=== PATIENT | female | born 1960 | race Caucasian/White ===

== ENCOUNTER 2018-08-14 09:29 | Outpatient (RCR) | payer MEDICAID, SELFPAY ==
--- NOTE | 2018-08-14 09:31 | COCO.VHC ---
New/Renewal Application Status: New Application Submitted?: Yes (07/30/18) Notes:: application submitted
== END 2018-09-11 23:59 | disposition home or self-care (01) ==
LOC: COCO 09:29
PROVIDERS: PCP Family Medicine; Visit Provider Family Medicine
DX: R69 Illness, unspecified (principal)

== ENCOUNTER 2018-10-29 14:06 | Outpatient (CLI) | payer OTHER, SELFPAY ==
[2018-10-29 15:22] LABS: ALT 19 U/L (12-78); AST 16 U/L (15-37); Albumin 3.4 g/dL (3.4-5.0); Alkaline Phosphatase 68 U/L (46-116); Anion Gap 5.6 mmol/L (3-11); BUN 17 mg/dL (7-18); Bilirubin, Total 0.3 mg/dL (0.2-1.0); CO2 31.4 mmol/L (21.0-32.0); CREATININE 1.09 mg/dL (0.55-1.02); Calcium 8.6 mg/dL (8.5-10.1); Chloride 107 mmol/L (98-107); Cholesterol 246 mg/dL (50-200); Estimated GFR 51.74 (mL/min/1.73m2); Glucose 101 mg/dL (70-100); HDL Cholesterol 65 mg/dL (40-60); LDL CHOLESTEROL 163 mg/dL (<100); Potassium 4.4 mmol/L (3.5-5.1); Sodium 144 mmol/L (136-145); Total Protein 6.8 g/dL (6.4-8.2); Triglyceride 158 mg/dL (30-150)
== END 2018-10-29 14:26 ==
PROVIDERS: PCP Family Medicine; Visit Provider Nurse Practitioner Family
DX: F31.81 Bipolar II disorder (principal); Z79.899 Other long term (current) drug therapy
CPT/HCPCS: 36415; 80053; 80061; 83721

== ENCOUNTER 2019-04-23 09:54 | Outpatient (REF) | payer OTHER, SELFPAY ==
--- NOTE | 2019-04-23 08:30 | PAPFT_PTH ---
PATIENT: Elisa Ram [facility] U#:[id number] AGE/SX: 58/F ROOM: RE04/23/[address]: Lisa Munoz V : 1960 BED: DIS: 04/23/2019 SPEC #: [id number] RECD: 04/26/19 13:09 STATUS: HOMER REKy #: [id number] NATALIE: 04/23/19 08:[address]: Lisa Munoz V DEPT: [facility] Cytology RECD BY: Vinita Kim Tissues: 1 - CX/ENDOCX FOR PAP SMEARS Procedures: PAP THIN PREP/UVM Screening HPV DNA PROBE Comments: [id number]
== END 2019-04-23 10:14 ==
LOC: NCHCN 09:54
PROVIDERS: PCP Family Medicine; Visit Provider Family Medicine
DX: Z12.4 Encounter for screening for malignant neoplasm of cervix (principal); Z11.51 Encounter for screening for human papillomavirus (HPV); Z01.419 Encounter for gynecological examination (general) (routine) without abnormal findings
CPT/HCPCS: 88142; 87624

== ENCOUNTER 2019-05-03 14:04 | Outpatient (CLI) | payer OTHER, SELFPAY ==
[2019-05-03 15:02] LABS: HCT 44.9 % (36.0-46.0); Mean Corp. HGB Concentration 33.4 g/dL (32.0-36.0); Mean Corpuscular Hemoglobin 31.9 pg (27.0-33.0); Mean Corpuscular Volume 95.5 fL (80-95); Mean Platelet Volume 9.7 fL (8.0-11.0); Platelet Count 234 x1000/uL (130-400); RBC Distribution Width 12.5 % (11.7-14.6); White Blood Cell Count 6.16 k/cumm (4.4-10.8)
[2019-05-03 15:43] LABS: Lithium 0.89 mmol/L (0.60-1.20)
[2019-05-03 15:46] LABS: ALT 21 U/L (12-78); AST 13 U/L (15-37); Albumin 3.6 g/dL (3.4-5.0); Alkaline Phosphatase 57 U/L (46-116); BUN 16 mg/dL (7-18); Bilirubin, Total 0.3 mg/dL (0.2-1.0); CREATININE 1.11 mg/dL (0.55-1.02); Calcium 8.6 mg/dL (8.5-10.1); Chloride 107 mmol/L (98-107); Estimated GFR 50.66 (mL/min/1.73m2); Glucose 84 mg/dL (70-100); Potassium 4.6 mmol/L (3.5-5.1); Sodium 141 mmol/L (136-145); TSH (W/Ref FT4) 2.33 uIU/mL (0.36-3.74); Total Protein 6.4 g/dL (6.4-8.2)
[2019-05-03 16:13] LABS: Calculated LDL 170 mg/dL; Cholesterol 273 mg/dL (50-200); HDL Cholesterol 74 mg/dL (40-60); Magnesium 2.2 mg/dL (1.8-2.4); Triglyceride 145 mg/dL (30-150); Vitamin B12 348 pg/mL (193-986)
[2019-05-07 09:34] LABS: Thiamine (Vitamin B1), WB 116 nmol/L (70-180)
== END 2019-05-03 14:24 ==
PROVIDERS: PCP Family Medicine; Visit Provider Nurse Practitioner Family
DX: Z00.00 Encounter for general adult medical examination without abnormal findings (principal); F31.81 Bipolar II disorder; E78.5 Hyperlipidemia, unspecified; Z98.84 Bariatric surgery status; Z79.899 Other long term (current) drug therapy; Z51.81 Encounter for therapeutic drug level monitoring
CPT/HCPCS: 36415; 80053; 80061; 83721; 85027; 80178; 82607; 83735; 84425; 84443; 84590

== ENCOUNTER 2019-05-18 10:53 | Outpatient (CLI) | payer OTHER, SELFPAY ==
--- NOTE | 2019-05-18 11:18 | DI.MAMMO_ITS ---
SYMPTOMS/DIAGNOSIS: SCREENING, Z12.31, PREVENTATIVE CARE, Z00.00 MAMMOGRAM: Mammograms were interpreted according to the usual protocol including computer analysis with CAD system, tomosynthesis and C view imaging. Comparison is made with exams from 2010 through 2016. The breasts are composed of scattered fibroglandular densities, breast density Category B. No suspicious masses or suspicious microcalcifications are seen. There has been no significant change. IMPRESSION: Category I, negative mammogram. Yearly screening mammography is recommended. [facility] ASSESSMENT OF FINDINGS: Negative. Category 1. Patient will receive a letter notifying them of these results. BI-RADS category B. There are scattered areas of fibroglandular density.
== END 2019-05-18 11:13 ==
PROVIDERS: PCP Family Medicine; Visit Provider Family Medicine
DX: Z00.00 Encounter for general adult medical examination without abnormal findings (principal); Z12.31 Encounter for screening mammogram for malignant neoplasm of breast
CPT/HCPCS: 77063; 77067

== ENCOUNTER 2019-07-26 07:13 | Day surgery (SDC) | payer OTHER, SELFPAY ==
--- NOTE | 2019-07-26 06:44 | W.COLOREPORT ---
Date of service: 07/26/19 Time of Service: 08:05 Colonoscopy Report Date of procedure: 07/26/19 Pre-op diagnosis general: Hx of polyps Post-op diagnosis procedure note: other (Colorectal polyps) Procedure: Colonoscopy with polypectomy by cold forceps and hot snare Surgeon: Ciara Limon Anesthesia proc note operative: other (General/ ASA 2/Myla Pedersen, STEFANIE) Estimated blood loss (mL): 5 Pathology: other (Sigmoid polyp, ascending polyp, transverse polyp x3) Complications: None Disposition: same day Indications: Mrs. Ram is a pleasant 58 year old female seen in the office for a follow up Colonoscopy. Her last Colonoscopy was in 2016 and she had 6 Polyps. Risks, benefits and complications have been reviewed. Complications include but are not limited to bleeding, pain, perforation, missed small lesion/polyp, sore throat, aspiration and adverse reaction to the medications. Questions were entertained and answered to their satisfaction and they wished to proceed. No guarantees were given or implied. Prep: Miralax/Dulcolax Procedure Start Time: 08:05 Procedure End Time: 08:55 Retraction Time: 39 minutes Findings: multiple sessile polyps Procedure Description: After informed consent was obtained the patient was taken to the procedure room and placed in a left decubitous position. Monitors were applied and a time out was done. The patients name, date of , procedure, allergies to medications and metal in their body was reviewed. The patient was then sedated. Once sedated and comfortable a rectal exam was done. External exam was normal. Internal exam revealed a normal sphincter tone and no palpable masses. The scope was then introduced and retro-flexed. No internal hemorrhoids, masses or polyps were identified on retroflexion. The scope was then advanced to the cecum without difficulty. The TI and appendiceal orifice were identified. The prep was adequate. The scope was then slowly retracted over 39 minutes back into the rectum. Polyps were removed with cold forceps in the sigmoid colon x 1 and ascending colon x1. Polyps were removed with hot snare in the transverse colon x2 and in the transverse colon at 60 cm. At 60 cm the polyp was >2 cm in size and it was sessile. The scope was removed and the patient was woken up and taken back to Same day surgery in stable condition. The patient tolerated the procedure well and there were no immediate complications. Follow up: The patient should follow up in 3 years unless they develop changes in bowel habits or other new gastrointestinal complaints.
--- NOTE | 2019-07-26 06:45 | W.PM.DSUDISC ---
Discharge Plan Disposition Patient Disposition: HOME Condition: Good Discharge Details Reason For Visit: Colon Cancer Screening Attending Provider: Ciara Limon Primary Care Provider: Lisa Munoz V Home Meds and New Rx's Prescriptions: Continued ziprasidone HCl 20 mg capsule 20 mg PO BID RF: 0 lithium carbonate 300 mg capsule 300 mg PO BID RF: 0 ziprasidone HCl [Geodon] 80 mg capsule 80 mg PO BID RF: 0 Discontinued polyethylene glycol 3350 17 gram/dose powder 238 g PO ONCE Qty: 238 RF: 0 bisacodyl [Dulcolax (bisacodyl)] 5 mg tablet,delayed release (DR/EC) 5 mg PO ONCE Qty: 4 RF: 0 Discharge Instructions Instructions: Colonoscopy (DC), Colorectal Polyps (DC) Additional Instructions: Findings: 5 sessile polyps Follow up: 3 years Please call if you develop: fevers >101.5 Nausea or Vomiting Abdominal pain that is not transient DAY SURGERY UNIT POST ENDOSCOPY INSTRUCTIONS 1. Because there will be medication in your system for the next 24 hours, you may feel a little sleepy. Your coordination will be affected. Therefore: a. Do not drive or operate dangerous equipment for 24 hours. b. Do not drink alcohol beverages for 24 hours (not even beer). c. Plan to go home and rest for the day. 2. Generally there are no restrictions on your activity after a day or so has gone by, but you may feel a bit fatigued for a few days. 3 After you arrive home you may have a light meal and return to a normal diet as you can tolerate it without feeling sick to your stomach. 4. After surgery, you may feel pain or discomfort. This should be only transient, but if it persists please contact your doctor. 5. If there are any questions regarding the findings of your procedure, please feel free to contact your doctor. 6. If you are unable to contact your doctor with a problem, contact the hospital at [phone]. 7. Continue all your regular medications unless directed otherwise. I understand the above instructions and have no questions. Signature of Patient or Responsible Adult Escort Date/Time Name of Responsible Adult Escort Signature of Nurse Date/Time Activity:: Activity as Tolerated Diet:: As Tolerated Discharge Orders Discharge Orders: Discharge Order (Routine); Ordered 07/26/19 Ordered By: Ciara Limon DS: Diagnosis Discharge Diagnosis (1) S/P colonoscopy: Status: Acute (2) Colorectal polyps: Status: Acute
[2019-07-26 07:20] VITALS: BP 121/73; PULSE 57; RESP 18; TEMP 36.4; O2SAT 99
[2019-07-26] MEDS: Lactated Ringers 1,000 ML 80 ML IV (07:46)
--- NOTE | 2019-07-26 08:09 | BOWEL_PTH ---
PATIENT: Elisa Ram LOC: [facility] U#:[id number] AGE/SX: 58/F ROOM: RE07/26/[address]: Ciara Limon MD : 1960 BED: DIS: 07/26/2019 SPEC #: [id number] RECD: 07/26/19 12:42 STATUS: HOMER REQ #: [id number] NATALIE: 07/26/19 08:[address]: Ciara Limon DEPT: Surgical Specimen RECD BY: Vinita Kim ENTERED: 07/26/19 12:44 SP TYPE: Bowel OTHR DR: Lisa Munoz V Tissues: 1 - BIOPSY BOWEL 2 - BIOPSY BOWEL 3 - BIOPSY BOWEL 4 - BIOPSY BOWEL Procedures: GROSS AND MICRO LEVEL 4 Comments: [id number]
[2019-07-26 09:35] VITALS: BP 133/76; PULSE 50; RESP 16; TEMP 36.5; O2SAT 95
== END 2019-07-26 10:05 | disposition home or self-care (01) ==
LOC: SUR 07:14
PROVIDERS: PCP Family Medicine; Visit Provider Surgery
PROC: 0DJD8ZZ Inspection of Lower Intestinal Tract, Via Natural or Artificial Opening Endoscopic (ICD-10-PCS; CPT 45378; principal; 2019-07-26 08:30)
DX: Z12.11 Encounter for screening for malignant neoplasm of colon (principal); D12.2 Benign neoplasm of ascending colon; D12.3 Benign neoplasm of transverse colon; D12.5 Benign neoplasm of sigmoid colon; Z86.010 Personal history of colon polyps
CPT/HCPCS: 45385; 45380; 88305

== ENCOUNTER 2019-09-02 08:50 | Outpatient (CLI) | payer OTHER, SELFPAY ==
[2019-09-02 10:56] LABS: ALT 27 U/L (14-59); AST 17 U/L (15-37); Albumin 3.6 g/dL (3.4-5.0); Alkaline Phosphatase 55 U/L (46-116); Anion Gap 7.3 mmol/L (3-11); BUN 16 mg/dL (7-18); Bilirubin, Total 0.4 mg/dL (0.2-1.0); CO2 26.7 mmol/L (21.0-32.0); CREATININE 1.28 mg/dL (0.55-1.02); Chloride 107 mmol/L (98-107); Estimated GFR 42.98 (mL/min/1.73m2); Glucose 92 mg/dL (74-106); Potassium 4.2 mmol/L (3.5-5.1); Sodium 141 mmol/L (136-145); TSH 3.16 uIU/mL (0.36-3.74); Total Protein 6.5 g/dL (6.4-8.2)
[2019-09-02 12:22] LABS: Lithium 1.04 mmol/L (0.60-1.20)
[2019-09-06 15:34] LABS: Free Retinol (Vitamin A) 61.5 mcg/dL (32.5-78.0)
== END 2019-09-02 09:10 ==
PROVIDERS: PCP Family Medicine; Visit Provider Nurse Practitioner Family
DX: Z00.00 Encounter for general adult medical examination without abnormal findings (principal); F31.81 Bipolar II disorder; E78.5 Hyperlipidemia, unspecified; Z98.84 Bariatric surgery status; Z79.899 Other long term (current) drug therapy; Z51.81 Encounter for therapeutic drug level monitoring
CPT/HCPCS: 36415; 80053; 80178; 84443; 84590

== ENCOUNTER 2019-11-08 08:56 | Outpatient (CLI) | payer OTHER, SELFPAY ==
[2019-11-08 09:56] LABS: Lithium 1.08 mmol/L (0.60-1.20)
[2019-11-08 10:31] LABS: CREATININE 1.33 mg/dL (0.55-1.02); Estimated GFR 40.98 (mL/min/1.73m2); TSH 2.38 uIU/mL (0.36-3.74)
== END 2019-11-08 09:16 ==
PROVIDERS: PCP Family Medicine; Visit Provider Nurse Practitioner Family
DX: F31.81 Bipolar II disorder (principal); Z51.81 Encounter for therapeutic drug level monitoring; Z79.899 Other long term (current) drug therapy
CPT/HCPCS: 36415; 80178; 82565; 84443

== ENCOUNTER 2020-07-03 02:11 | Outpatient (CLI) | payer OTHER, SELFPAY ==
[2020-07-03 10:20] LABS: ALT 18 U/L (14-59); AST 12 U/L (15-37); Albumin 3.7 g/dL (3.4-5.0); Alkaline Phosphatase 58 U/L (46-116); Anion Gap 4.1 mmol/L (3-11); BUN 21 mg/dL (7-18); Bilirubin, Total 0.5 mg/dL (0.2-1.0); CO2 26.9 mmol/L (21.0-32.0); CREATININE 1.18 mg/dL (0.55-1.02); Calculated LDL 187 mg/dL (<100); Chloride 109 mmol/L (98-107); Cholesterol 281 mg/dL (<200); Estimated GFR 47.05 (mL/min/1.73m2); Glucose 103 mg/dL (74-106); HDL Cholesterol 62 mg/dL (40-60); Potassium 4.4 mmol/L (3.5-5.1); Sodium 140 mmol/L (136-145); TSH 4.18 uIU/mL (0.36-3.74); Total Protein 6.7 g/dL (6.4-8.2); Triglyceride 160 mg/dL (<150)
[2020-07-03 10:26] LABS: Lithium 0.99 mmol/L (0.60-1.20)
== END 2020-07-03 02:31 ==
PROVIDERS: PCP Family Medicine; Visit Provider Nurse Practitioner Family
DX: F31.81 Bipolar II disorder (principal); Z79.899 Other long term (current) drug therapy; Z51.81 Encounter for therapeutic drug level monitoring
CPT/HCPCS: 36415; 80053; 80061; 80178; 84443

== ENCOUNTER 2020-09-19 15:42 | Outpatient (REF) | payer OTHER, SELFPAY ==
[2020-09-21 19:33] LABS: COVID-19 RT-PCR UVMMC Result Positive (Negative)
== END 2020-09-19 16:02 ==
LOC: NCHCN 15:42
PROVIDERS: PCP Family Medicine; Visit Provider Family Medicine
DX: J06.9 Acute upper respiratory infection, unspecified (principal)
CPT/HCPCS: U0003

== ENCOUNTER 2020-09-22 13:15 | Outpatient (CLI) | payer OTHER, SELFPAY ==
[2020-09-22] VITALS (10 sets, daily range): BP systolic 102–123; BP diastolic 71–83; PULSE 58–65; RESP 17–20; TEMP 36.7–36.8; O2SAT 93–97
[2020-09-22] MEDS: Normal Saline 500 ML 30 ML IV (14:15)
[2020-09-22] MEDS: Normal Saline Flush 10 ML SYR IVP ×2 (14:15→15:51)
== END 2020-09-22 13:35 ==
PROVIDERS: PCP Family Medicine; Visit Provider Family Medicine
DX: U07.1 COVID-19 (principal)
CPT/HCPCS: 96365

== ENCOUNTER 2020-09-23 11:56 | Inpatient (IN) | payer OTHER, SELFPAY ==
[2020-09-23] VITALS (129 sets, daily range): BP systolic 90–174; BP diastolic 49–137; PULSE 51–128; RESP 12–30; TEMP 36.7–37.2; O2SAT 83–99
--- NOTE | 2020-09-23 12:00 | RT.EKG_ITS ---
APPROVED REPORT Exam: Resting ECG Patient Location: E HR:65 bpm ECG Measurements Heart Rate 65 AXIS MT [id number] P [id number] QRSd 119 QRS 12 QT 440 T -41 QTc 457 Conclusion Atrial fibrillation...? atrial activity Nonspecific intraventricular conduction delay...QRSd >115mS, not LBBB/RBBB Nonspecific T abnormalities, diffuse leads...T <-0.10mV, ant/lat/inf I disagree with above software interpretation - sinus rhythm, t wave inv III, aVF v1-6
[2020-09-23] MEDS: Normal Saline Flush 10 ML SYR IVP ×2 (12:30→18:51)
[2020-09-23 12:41] LABS: Abs Immature Grans 0.01 10^3/uL (0.0-0.06); Absolute Basophil Count 0.01 10^3/uL (0.0-0.2); Absolute Eosinophil Count 0.03 10^3/uL (0.0-0.7); Absolute Lymphocyte Count 0.95 10^3/uL (1.2-3.4); Absolute Monocyte Count 0.42 10^3/uL (0.1-0.8); Absolute Neutrophil Count 2.75 10^3/uL (1.2-6.7); Basophils % 0.2; Eosinophils % 0.7; HGB 14.7 g/dL (11.2-15.7); Immature Grans % 0.2; Lymphocytes % 22.8; MCH 31.1 pg (27.0-33.0); MCHC 33.4 % (32.0-36.0); MCV 93.2 fL (80-95); MPV 9.8 fL (8.0-11.0); Monocytes % 10.1; Nucleated RBC 0 %; Platelet Count 150 10^3/uL (130-400); RBC 4.72 10^6/uL (3.93-5.22); RDW 12.7 % (11.7-14.6); RDW-SD 43.8 fL; WBC 4.17 10^3/uL (4.4-10.8)
--- NOTE | 2020-09-23 12:45 | ED.GENADUL_ITS ---
Discharge Plan Discharge Details Chief Complaint: Chest Pain Admit Date/Time: 09/23/20 15:31 Admit Provider: Cristian Silva Attending Provider: Cristian Silva Primary Care Provider: Lisa Munoz V ED Provider: Armando Rosas Discharge Data Discharge Date/Time-TO BE ENTERED AT DEPARTURE: 09/23/20 16:52 Medical Decision Making 59-year-old female with history of hypertension, hyperlipidemia, Covid positive by PCR on 09/19/2020, here with chest pressure that started this morning and is worse with exertion with associated shortness of breath. Chest pain is somewhat positional. Concern for pulmonary embolism versus ACS. Screening ECG was reviewed and interpreted by me: Sinus rhythm with T wave inversions noted lead III, aVF, V1 to V6. I attempted to obtain old ECG and not available for comparison. Pain did improve with aspirin and nitroglycerin was administered by EMS. Plan to give additional sublingual nitro and start nitroglycerin infusion. We will proceed to CT chest to assess for pulmonary embolism. 1314??labs reviewed and creatinine is elevated at 1.8 with a GFR of 29. I am reluctant to proceed with CT of the chest given renal function and potential for contrast-induced nephropathy. Will obtain chest x-ray. Initial troponin negative. 1527 --chest x-ray was reviewed and interpreted by radiology: Patchy bilateral perihilar opacities suggestive of an atypical pneumonia. Second troponin at 2 hours from initial negative and unchanged. Repeat ECG was interpreted by me, please see report, no significant change from prior. Patient reassessed and has remained stable. Her chest pain has improved on nitroglycerin drip. We are unable to titrate drip up further given blood pressure. She is received about 1 L of normal saline. I called and spoke with Dr. Silva and discussed ED presentation and course. He will admit the patient to the ICU. HPI General Mode of arrival: EMS . Date/Time Provider Initiated Documentation: 09/23/20 12:28 . Limitations to Documentation: no limitations . Information obtained by: patient and EMS . HPI Narrative: 59-year-old female with history of hyperlipidemia, hypertension, family history positive for cardiac disease, presents with chief complaint of chest pain. Patient notes she recently tested positive for Covid by PCR on 09/19/2020. She is been having viral symptoms with myalgias for the past 5 days. Today she developed retrosternal chest discomfort described as a heaviness. Discomfort is worse with exertion including stairs. Patient received aspirin and sublingual nitroglycerin x4 by EMS. This did improve her pain. Pain is currently 5/10. Pain is improved with certain positions including lying flat. She has no associated leg swelling or calf pain. She does have associated shortness of breath. Related Data Home Medications Medication Instructions Recorded Confirmed lithium carbonate 300 mg capsule 300 mg PO BID 05/04/19 09/23/20 benztropine 1 mg PO .QHS 09/23/20 09/23/20 levothyroxine 25 mcg PO DAILY 09/23/20 09/23/20 topiramate 100 mg PO BID 09/23/20 09/23/20 cariprazine [Vraylar] 1.5 mg PO DAILY 09/24/20 09/24/20 cariprazine [Vraylar] 4.5 mg PO DAILY 09/24/20 09/24/20 hydroxyzine pamoate 50 - 150 mg PO HS 09/24/20 09/24/20 lithium carbonate 150 mg PO HS 09/24/20 09/24/20 topiramate [Topamax] 50 mg PO BID 09/24/20 09/24/20 Allergies Allergy/AdvReac Type Severity Reaction Status Date / Time ampicillin Allergy Intermediate HIVES HEAD Unverified 09/23/20 12:38 TO TOE, ITCHING aripiprazole [From Abilify] AdvReac Intermediate made worse Unverified 09/23/20 12:38 bupropion HCl AdvReac Intermediate paranoia Unverified 09/23/20 12:38 [From Wellbutrin] fluoxetine HCl [From Prozac] AdvReac Intermediate increased Unverified 09/23/20 12:38 mood cycling General Stated Complaint: Chest Pain HA: 2 Review of Systems All systems reviewed & are unremarkable except as noted in HPI and below Constitutional Constitutional: Reports body ache(s) and Reports fever(s) Cardiovascular Cardiovascular: Reports chest pain and Reports dyspnea Respiratory Respiratory: Reports cough and Reports dyspnea Gastrointestinal Gastrointestinal: Denies abdominal pain, Reports diarrhea, Denies nausea and Denies vomiting Musculoskeletal Musculoskeletal: Reports myalgias Integumentary/Breasts Skin/Breast: Denies rash [facility] Medical History ADD Benign hypertension Bipolar disorder Cataract Chronic headaches Colorectal polyps Depression Headache Hyperlipidemia Obsessive-compulsive disorder PTSD (post-traumatic stress disorder) Tubular adenoma of colon Surgical History Cholecystectomy gastric sleeve History of cataract surgery Ligation of fallopian tube S/P colonoscopy 2016- Polyps Family History Mother Heart disease Hyperlipidemia Mental disorder Father Hyperlipidemia Mental disorder Grandmother Personal history of malignant neoplasm Mental disorder aunt Personal history of malignant neoplasm Social History Smoking/Tobacco Use Status: Never Smoking risk assessment performed?: Yes Alcohol Intake: current Alcohol Intake frequency: a few times a month Alcohol type: hard liquor Drug use: Never Substance use type: does not use Current gender identity: female Do you feel safe at home: Yes Do you feel safe in your relationship?: Yes Exam Const General: cooperative and no acute distress HENMT Mouth: moist mucous membranes Eyes Conjunctivae: normal conjunctivae Sclera: normal sclerae Neck Neck: trachea midline Resp Effort & Inspection: able to speak in complete sentences, not labored and no respiratory distress Auscultation: no wheezes Cardio Jugular venous pressure: no JVD Rate: regular rate and not tachycardic Rhythm: regular rhythm GI Inspection: non-distended Skin General skin exam: no rashes or lesions noted Neuro General: patient alert, patient awake and tone normal Extrem General: no calf tenderness and no edema Psych Appearance: grossly normal Mental Status: mental status grossly normal Course Vital Signs Vital signs: Vital Signs Respiratory Rate 16 09/23/20 12:07 Pulse Oximetry 89 L 09/23/20 12:07 Temperature 37.2 C 09/23/20 12:10 Temperature Source Skin 09/23/20 12:10 Pulse 62 09/23/20 12:15 Pulse 64 09/23/20 12:40 Respiratory Rate 20 09/23/20 12:40 Respiratory Effort Non-Labored 09/23/20 12:10 Blood Pressure 122/70 09/23/20 12:15 Blood Pressure Mean 82 09/23/20 12:15 Blood Pressure Position Supine 09/23/20 12:10 Pulse Oximetry 95 09/23/20 12:30 Oxygen Delivery Method Room Air 09/23/20 12:10 Oxygen Flow Rate 0 09/23/20 12:10 Pain Level 5 09/23/20 12:10 Critical Care Time Critical Care Time Critical Care Time: Yes Total Critical Care Time: 55 Attestation: I spent greater than 55 minutes addressing this patient's immediate life threats. Please see MDM section of note. This time was spent engaged in work directly related to the patient's care, exclusive of separate procedures, and failure to initiate these interventions would have likely resulted in clinically significant or life threatening deterioration in the patient's condition.
[2020-09-23] MEDS: Normal Saline 500 ML 1000 ML IV (12:50)
[2020-09-23 12:54] LABS: PTT Activated 25.3 sec (21.0-27.5); Prothrombin Time 10.3 sec (9.3-11.0)
[2020-09-23 12:56] LABS: ALT 26 U/L (14-59); AST 25 U/L (15-37); Albumin 3.2 g/dL (3.4-5.0); Alkaline Phosphatase 94 U/L (46-116); Anion Gap 7.7 mmol/L (3-11); BUN 25 mg/dL (7-18); Bilirubin, Total 0.4 mg/dL (0.2-1.0); CO2 23.3 mmol/L (21.0-32.0); CREATININE 1.81 mg/dL (0.55-1.02); Calcium 8.5 mg/dL (8.5-10.1); Chloride 106 mmol/L (98-107); Estimated GFR 28.71 (mL/min/1.73m2); Glucose 112 mg/dL (74-106); Magnesium 2.3 mg/dL (1.8-2.4); Potassium 3.8 mmol/L (3.5-5.1); Sodium 137 mmol/L (136-145); Total Protein 7.1 g/dL (6.4-8.2)
[2020-09-23 12:57] LABS: Troponin I < 0.05 ng/mL (<0.06)
[2020-09-23] MEDS: nitroGLYcerin 0.4 MG TAB SL (12:58)
--- NOTE | 2020-09-23 13:00 | DI.RAD_ITS ---
EXAM: XR PORTABLE CHEST AP CLINICAL HISTORY: chest pain TECHNIQUE: 2D digital imaging was performed. COMPARISON: No exams were available for comparison FINDINGS: MEDIASTINUM: Normal. HEART: Normal. PULMONARY VASCULATURE: Normal. LUNGS: Linear peripheral opacities are seen in the left upper lobe and lingula. No focal consolidati ng infiltrates. PLEURAL SPACE: No pleural effusion or pneumothorax. BONE:Within normal limits for the patient's age. Prior cervical spine surgery. OTHER FINDINGS:Normal. IMPRESSION: Linear infiltrates in the left upper lobe and lingula which may represent a pneumonia. Please correl ate clinically. DATA REPOSITORY: RADIATION DOSE DELIVERED:
--- NOTE | 2020-09-23 13:38 | DI.VRAD_ITS ---
PROCEDURE INFORMATION: Exam: XR Chest, 1 View Exam date and time: 09/23/2020 1:33 PM Age: 59 years old Clinical indication: Cough and shortness of breath TECHNIQUE: Imaging protocol: XR of the chest Views: 1 view. COMPARISON: No relevant prior studies available. FINDINGS: Lungs: Subtle peripheral opacities in the left upper lobe and lingula. These are also seen in the right perihilar region. Pleural space: Unremarkable. No pleural effusion. No pneumothorax. Heart/Mediastinum: Unremarkable. No cardiomegaly. Bones/joints: Anterior cervical spine fixation. IMPRESSION: Patchy bilateral perihilar opacities suggestive of an atypical pneumonia. Dictated and Authenticated by: Harris Oakes MD. Ordering:FREDDY Roberts MD
--- NOTE | 2020-09-23 14:30 | RT.EKG_ITS ---
APPROVED REPORT Exam: Resting ECG Patient Location: E HR:56 bpm ECG Measurements Heart Rate 56 AXIS IN 186 P 61 QRSd 120 QRS 10 QT 477 T -32 QTc 462 Conclusion Sinus bradycardia...rate< 60 Probable left atrial enlargement...P >50mS, <-0.10mV V1 Nonspecific intraventricular conduction delay...QRSd >115mS, not LBBB/RBBB
[2020-09-23 14:31] LABS: D-Dimer 511 ng/mlFEU (<500)
[2020-09-23 15:07] LABS: Troponin I < 0.05 ng/mL (<0.06)
[2020-09-23] MEDS: Normal Saline 1,000 ML 50 ML IV (15:55)
[2020-09-23 16:21] LABS: Anion Gap 7.4 mmol/L (3-11); BUN 25 mg/dL (7-18); CO2 23.6 mmol/L (21.0-32.0); CREATININE 1.66 mg/dL (0.55-1.02); Calcium 7.7 mg/dL (8.5-10.1); Chloride 108 mmol/L (98-107); Estimated GFR 31.73 (mL/min/1.73m2); Glucose 100 mg/dL (74-106); Potassium 3.6 mmol/L (3.5-5.1); Sodium 139 mmol/L (136-145)
[2020-09-23] MEDS: Acetaminophen 325 MG TAB 650 MG PO (18:48)
[2020-09-23] MEDS: Dexamethasone 4 MG TAB 6 MG PO (18:49)
[2020-09-23 19:34] LABS: Troponin I < 0.05 ng/mL (<0.06)
[2020-09-23] MEDS: Benztropine 1 MG TAB PO (20:33)
[2020-09-23] MEDS: Topiramate 100 MG TAB PO (20:34)
[2020-09-23] MEDS: hydrOXYzine PAMOATE 25 MG CAP 50 MG PO (20:35)
[2020-09-23] MEDS: Lithium Carbonate 300 MG CAP PO (20:36)
[2020-09-23 21:19] LABS: PTT Activated > 155.0 sec (21.0-27.5)
[2020-09-24] VITALS (14 sets, daily range): BP systolic 103–140; BP diastolic 50–93; PULSE 41–74; RESP 17–26; TEMP 36.4–36.9; O2SAT 94–98
--- NOTE | 2020-09-24 | DI.CT_ITS ---
EXAM: CT CHEST PE CTA CLINICAL HISTORY: chest pain, Covid +. TECHNIQUE: Imaging Protocol: Axial CT angiography was performed with multi-slice acquisition and mu lti-planar and/or 3D reconstructions. CONTRAST MATERIAL: Intravenous: Omnipaque 350 Contrast volume:100 mL COMPARISON: Comparison examination is 10/02/2015. FINDINGS: Pulmonary Arteries: No evidence of filling defect to suggest pulmonary emboli. Tracheobronchial tree: Patent where visualized. Mediastinum and Shobha: No dominant adenopathy or fluid collection. There are postsurgical changes at t he gastroesophageal junction. Small hiatal hernia. Pulmonary parenchyma: There are scattered predominantly peripheral ground-glass opacities throughout the lungs. There is a focal infiltrate in the left lower lobe posteriorly. No architectural distort ion. Pleura: No effusion or pneumothorax. Heart: Mild cardiomegaly. No coronary artery calcifications are seen. No pericardial effusion. Aorta: Thoracic aorta non-dilated. Mild atherosclerosis. No evidence of dissection. Upper abdomen: Status post cholecystectomy. Bones: Degenerative changes are seen in the thoracic spine.Findings of prior cervical spine fusion. Soft tissues: Unremarkable. IMPRESSION: 1. No evidence of pulmonary embolism, thoracic aortic dissection or aneurysm. 2. Patchy predominantly peripheral ground-glass opacities suspicious for an infectious or inflammator y process or Covid 19. RADIATION DOSE DELIVERED: 565.22mGy.cm Total DLP DATA REPOSITORY: All CT scans at this facility are submitted to the National Radiology Data Registry (NRDR) Dose Index Registry (DIR) with the [employer] (ACR). RADIATION OPTIMIZATION: All CT scans at this facility use at least one of these dose optimization te chniques: automated exposure control; mA and/or kV adjustment per patient size (includes targeted exa ms where dose is matched to clinical indication); or iterative reconstruction.
[2020-09-24] MEDS: Acetaminophen 325 MG TAB 650 MG PO (03:35)
--- NOTE | 2020-09-24 04:26 | NUR.NOTE ---
Nursing Note: lab at bedside to draw APTT.
[2020-09-24 05:25] LABS: Anion Gap 10.2 mmol/L (3-11); BUN 27 mg/dL (7-18); CO2 18.8 mmol/L (21.0-32.0); CREATININE 1.43 mg/dL (0.55-1.02); Calcium 8.3 mg/dL (8.5-10.1); Chloride 109 mmol/L (98-107); Estimated GFR 37.69 (mL/min/1.73m2); Glucose 143 mg/dL (74-106); Potassium 4.1 mmol/L (3.5-5.1); Sodium 138 mmol/L (136-145)
[2020-09-24] MEDS: Levothyroxine 25 MCG TAB PO (06:40)
[2020-09-24 07:32] LABS: PTT Activated > 155.0 sec (21.0-27.5)
[2020-09-24] MEDS: Dexamethasone 4 MG TAB 6 MG PO (08:02)
[2020-09-24] MEDS: Topiramate 100 MG TAB PO (08:02)
[2020-09-24 08:06] LABS: Lithium 1.38 mmol/L (0.60-1.20)
[2020-09-24] MEDS: Lithium Carbonate 300 MG CAP PO (08:09)
--- NOTE | 2020-09-24 08:29 | PDOC.CMIN ---
- If Service Date Differs Date of service: 09/24/20 Time of Service: 08:29 Care Management Initial Assess REASON FOR HOSPITALIZATION:: COVID pneumonia, chest pain PAST MEDICAL HISTORY/PAST SURGICAL HISTORY:: Medical History . ADD. Benign hypertension. Bipolar disorder. Cataract. Chronic headaches. Colorectal polyps. Depression. Headache. Hyperlipidemia. Obsessive-compulsive disorder. PTSD (post-traumatic stress disorder). Tubular adenoma of colon. Surgical History . Cholecystectomy. gastric sleeve. History of cataract surgery. Ligation of fallopian tube. S/P colonoscopy. 2015- Polyps PREVIOUS FUNCTIONAL STATUS/SOCIAL/FAMILY SUPPORTS:: Elisa states she has a good support system, she lives with her , she has two children. She is at [employer] independent with ADL's, transportation and all aspects of care. She has a good relationship with and feels that she is supportive to her care. CURRENT FUNCTIONAL STATUS:: Elisa is alert and engaged in assessment with CM. She states she is feeling a little better today. She reports her also has COVID but did not have many symptoms. She does not feel she will need any services at time of discharge. She is currently in the ICU receiving ICU level of care. ADVANCE DIRECTIVES:: None on file she is willing to review the forms which CM will provide. Has patient been provided with info about the portal/API?: Yes Did the patient sign up for the portal?: No CODE STATUS:: Full Code INSURANCE COVERAGE / FINANCIAL ISSUES:: [employer] CURRENT HOME/COMMUNITY SERVICES/EQUIPMENT:: No current services at this time. PRIMARY CARE PHYSICIAN:: POTENTIAL DISCHARGE NEEDS:: Follow up with primary care provider as directed. PATIENT/FAMILY EDUCATION NEEDS:: Discharge education, limitations and follow up plan of care including ask me three. ANTICIPATED BARRIERS TO DISCHARGE:: None identified. TRANSPORTATION:: Via private car with family at time of discharge PLAN:: Elisa will likely be discharged when she is medically clear. Anticipate no additional services at time of discharge. She will be transported home via private car with family at time of discharge.
[2020-09-24] MEDS: Enoxaparin 100 MG/ML SYR SC (09:53)
[2020-09-24] MEDS: Omnipaque 350 MG/ML 100 ML BTL IJ (10:18)
--- NOTE | 2020-09-24 10:47 | PHA.REVIEW ---
Pharmacy Admission Review - Admission Clinical Review ampicillin Allergy (Intermediate, Unverified 09/23/20 12:38) HIVES HEAD TO TOE, ITCHING aripiprazole [From Abilify] Adverse Reaction (Intermediate, Unverified 09/23/20 12:38) made worse bupropion HCl [From Wellbutrin] Adverse Reaction (Intermediate, Unverified 09/23/20 12:38) paranoia fluoxetine HCl [From Prozac] Adverse Reaction (Intermediate, Unverified 09/23/20 12:38) increased mood cycling Height 5 ft 2 in Weight 105.1 kg - Renal Dosing Renal Dosing: BUN 27 mg/dL (7-18) H 09/24/20 04:55 Creatinine 1.43 mg/dL (0.55-1.02) H 09/24/20 04:55 Medications needing adjustments: Reviewed (eCrCl using ABW is 48.8ml/min) List of meds needing interventions: All orders are okay - Anticoagulation Anticoagulation: Hgb 14.7 g/dL (11.2-15.7) 09/23/20 12:34 Hct 44.0 % (36.0-46.0) 09/23/20 12:34 Plt Count 150 10^3/uL (130-400) 09/23/20 12:34 INR 1.0 (0.9-1.1) 09/23/20 12:34 Creatinine 1.43 mg/dL (0.55-1.02) H 09/24/20 04:55 Therapeutic Anticoagulation: Intervened Medications: Enoxaparin (was originially on a heparin gtt but due to difficulty monitoring pTT - AM level did return elevated at >155 - was switched to LMWH (for tx of possible PE)) - Opiate Usage Evaluate Pain Scale/Pains Meds: N/A - Relevant Labs Sodium 138 mmol/L (136-145) 09/24/20 04:55 Potassium 4.1 mmol/L (3.5-5.1) 09/24/20 04:55 Chloride 109 mmol/L (98-107) H 09/24/20 04:55 Magnesium 2.3 mg/dL (1.8-2.4) 09/23/20 12:34 Electrolytes, C-Reactive P, ESR: Reviewed - DM Control DM Control: Glucose 143 mg/dL (74-106) H 09/24/20 04:55 Insulin Dosing: N/A - Heart Failure/ME Heart Failure/ME: Troponin I < 0.05 ng/mL (<0.06) 09/23/20 19:00 EF%, BETH's, B-Blockers, Diuretics: Reviewed - BP Control BP Control: Blood Pressure 118/61 Blood Pressure 104/55 Blood Pressure 110/65 Blood Pressure 114/66 Blood Pressure 127/90 Blood Pressure 113/67 If elevated: Reviewed - Qtc Review If Elevated: Reviewed (QTc 457 on admission) - IV to PO Switch IV Medications: Reviewed - Home Meds Home Med List reviewed: Intervened Relevent Home Meds Not ordered & why?: Was taking additional daily doses of lithium, topiramate, and Vrylar that weren't originally recorded in the med rec on admission -- corrected all home meds; [place] came back slightly elevated so will hold off on additional 150mg at HS per MD, patient is likely to be discharged today but will reassess if she stays - Current meds Current Medication Order Review: Reviewed - Comments Comments/Follow Ups: Ruling out PE, otherwise she is doing well despite having covid -- possible DC home today
--- NOTE | 2020-09-24 11:19 | DI.VRAD_ITS ---
PROCEDURE INFORMATION: Exam: CT Angiography Chest With Contrast Exam date and time: 09/24/2020 9:24 AM Age: 59 years old Clinical indication: Other: Covid +; Chest pain; Type not specified TECHNIQUE: Imaging protocol: Computed tomographic angiography of the chest with intravenous contrast. 3D rendering (Not supervised by radiologist): MIP and/or 3D reconstructed images were created by the technologist. Contrast material: OMNI 350; Contrast volume: 100 ml; Contrast route: INTRAVENOUS (IV); COMPARISON: CR XR PORTABLE CHEST AP 09/23/2020 1:18 PM FINDINGS: Pulmonary arteries: There is no pulmonary embolism. Aorta: Unremarkable. No aortic aneurysm. No aortic dissection. Lungs: There patchy foci of ground-glass densities, both in the central and peripheral distribution but more pronounced peripherally. Lung volumes are low. There is atelectasis of the left lower lung lobe. Pleural space: Unremarkable. No pneumothorax. No pleural effusion. Heart: Heart mildly enlarged. Mediastinal space: There is a small hiatal hernia. Lymph nodes: Unremarkable. No enlarged lymph nodes. Gallbladder and bile ducts: Gallbladder is surgically removed. Bones/joints: There is an anterior fusion device in the C6 and C7 vertebral bodies. Soft tissues: Unremarkable. Other findings: There is no focal lytic or blastic lesion present. IMPRESSION: 1. Patchy ground-glass densities, predominantly in the peripheral distribution could be sequela of infectious or inflammatory infiltrates or Covid19. 2. Low lungs volume. 3. Cholecystectomy. 4. No pulmonary embolism Dictated and Authenticated by: Devante Meléndez MD. Ordering:CELSO Foster MD
--- NOTE | 2020-09-24 12:45 | W.PM.HP.N ---
Date of service: 09/23/20 Time of Service: 16:46 Assessment and Plan Assessment and plan (1) COVID-19: Status: Acute Assessment and plan: Tested + 4 days prior to admission. Received combined convalescent plasma prior to this admission. Dexamethasone 6mg daily. Not requiring supplemental O2. IS. ICU admission with telemetry. (2) Depression: Status: None Assessment and plan: with associated PTSD. Cont current psychiatric meds. Pt will need to bring in her home Vraylar. (3) Chest pain: Status: Acute Assessment and plan: Appears most likely to be pleuritic and/or a myofascial componenet. Dexamethasone initiated for Covid-19 treatment should be of benefit R/O NE and pulmonary embolism. Serial troponin levels; negative x 2. Cont heparin drip until able to r/o pulmonary embolism. PRN morphine for pain. (4) Yhfcq-vc-xblbwnn kidney injury: Status: Acute Assessment and plan: IV hydration. Monitor. Avoid nephrotoxic drugs and hypotension. History of Present Illness History of Present Illness Chief Complaint: Chest pain Narrative: 59-year-old female with history of hyperlipidemia, hypertension, family history positive for cardiac disease, presents with chief complaint of chest pain. Patient notes she recently tested positive for Covid by PCR on 09/19/2020. Her also tested positive. She did receive an infusion of combined convalescent plasma the day prior to presentation to the ED. She has been having viral symptoms with myalgias and dry cough for the past 5 days. On the day of presentation she developed retrosternal chest discomfort described as a heaviness. Discomfort is worse with exertion including stairs. Patient received aspirin and sublingual nitroglycerin x4 by EMS. This did improve her pain. Pain of 5/10 in the ED. Pain was improved with certain positions including lying flat. She has no associated leg swelling or calf pain. She does have associated shortness of breath. Her RA oxygen saturations were normal with the exception of an initial reading of 89%. CXR shows bilateral interstitial changes consistent with atypical pneumonia. WBC count normal. Creatinine elevated at 1.81. Her baselin is 1.09-1.33 range. Review of Systems All systems reviewed & are unremarkable except as noted in HPI and below PFSH Medical History ADD Benign hypertension Bipolar disorder Cataract Chronic headaches Colorectal polyps Depression Headache Hyperlipidemia Obsessive-compulsive disorder PTSD (post-traumatic stress disorder) Tubular adenoma of colon Surgical History Cholecystectomy gastric sleeve History of cataract surgery Ligation of fallopian tube S/P colonoscopy 2015- Polyps Family History Mother Heart disease Hyperlipidemia Mental disorder Father Hyperlipidemia Mental disorder Grandmother Personal history of malignant neoplasm Mental disorder aunt Personal history of malignant neoplasm Social History Smoking/Tobacco Use Status: Never Smoking risk assessment performed?: Yes Alcohol Intake: current Alcohol Intake frequency: a few times a month Alcohol type: hard liquor Drug use: Never Substance use type: does not use Current gender identity: female Do you feel safe at home: Yes Do you feel safe in your relationship?: Yes Meds Home Medications and Allergies Home Medications Medication Instructions Recorded Confirmed Type lithium carbonate 300 mg capsule 300 mg PO BID 05/04/19 09/23/20 History benztropine 1 mg PO .QHS 09/23/20 09/23/20 History levothyroxine 25 mcg PO DAILY 09/23/20 09/23/20 History topiramate 100 mg PO BID 09/23/20 09/23/20 History cariprazine [Vraylar] 1.5 mg PO DAILY 09/24/20 09/24/20 History cariprazine [Vraylar] 4.5 mg PO DAILY 09/24/20 09/24/20 History hydroxyzine pamoate 50 - 150 mg PO HS 09/24/20 09/24/20 History lithium carbonate 150 mg PO HS 09/24/20 09/24/20 History topiramate [Topamax] 50 mg PO BID 09/24/20 09/24/20 History Allergies Allergy/AdvReac Type Severity Reaction Status Date / Time ampicillin Allergy Intermediate HIVES HEAD Unverified 09/23/20 12:38 TO TOE, ITCHING aripiprazole [From Abilify] AdvReac Intermediate made worse Unverified 09/23/20 12:38 bupropion HCl AdvReac Intermediate paranoia Unverified 09/23/20 12:38 [From Wellbutrin] fluoxetine HCl [From Prozac] AdvReac Intermediate increased Unverified 09/23/20 12:38 mood cycling Exam Const General: cooperative, no acute distress and other (appears tired.) Nutritional Appearance: obese Orientation: alert and oriented x3 Eyes Sclera: sclerae normal Pupils: PERRL Chest Chest: tenderness (with compression of the sternum) Resp Effort & Inspection: normal respiratory effort Auscultation: clear to auscultation bilaterally and diminished lung sounds Cardio Rate: bradycardic Rhythm: regular rhythm Heart Sounds: S1 normal and S2 normal GI Palpation: soft and nontender Auscultation: normal bowel sounds Skin General skin exam: no rashes or lesions noted Neuro General: moves all extremities and no focal motor deficits Cranial Nerves: sense of smell not altered Cognition: normal cognition Speech: speech normal Extrem General: no pedal edema and no calf tenderness Results Labs Result diagrams: 09/23/20 12:34 09/24/20 04:55 Labs: Laboratory Results - last 24 hr 09/23/20 09/23/20 09/23/20 12:34 12:34 12:34 WBC 4.17 L RBC 4.72 Hgb 14.7 Hct 44.0 MCV 93.2 MCH 31.1 MCHC 33.4 RDW 12.7 Plt Count 150 MPV 9.8 Immature Gran % 0.2 Neutrophils % 66.0 Lymphocytes % 22.8 Monocytes % 10.1 Eosinophils % 0.7 Basophils % 0.2 Nucleated RBC % 0 Absolute Neutrophils 2.75 Absolute Lymphocytes 0.95 L Absolute Monocytes 0.42 Absolute Eosinophils 0.03 Absolute Basophils 0.01 PT 10.3 INR 1.0 APTT 25.3 D-Dimer Sodium 137 Potassium 3.8 Chloride 106 Carbon Dioxide 23.3 Anion Gap 7.7 BUN 25 H Creatinine 1.81 H Estimated GFR/1.73 m2 28.71 Glucose 112 H Calcium 8.5 Magnesium 2.3 Total Bilirubin 0.4 AST 25 ALT 26 Alkaline Phosphatase 94 Troponin I < 0.05 Total Protein 7.1 Albumin 3.2 L [place] 09/23/20 09/23/20 09/23/20 12:34 14:35 16:05 WBC RBC Hgb Hct MCV MCH MCHC RDW Plt Count MPV Immature Gran % Neutrophils % Lymphocytes % Monocytes % Eosinophils % Basophils % Nucleated RBC % Absolute Neutrophils Absolute Lymphocytes Absolute Monocytes Absolute Eosinophils Absolute Basophils PT INR APTT D-Dimer 511 H Sodium 139 Potassium 3.6 Chloride 108 H Carbon Dioxide 23.6 Anion Gap 7.4 BUN 25 H Creatinine 1.66 H Estimated GFR/1.73 m2 31.73 Glucose 100 Calcium 7.7 L Magnesium Total Bilirubin AST ALT Alkaline Phosphatase Troponin I < 0.05 Total Protein Albumin [place] 09/23/20 09/23/20 09/23/20 18:46 19:00 19:42 WBC RBC Hgb Hct MCV MCH MCHC RDW Plt Count MPV Immature Gran % Neutrophils % Lymphocytes % Monocytes % Eosinophils % Basophils % Nucleated RBC % Absolute Neutrophils Absolute Lymphocytes Absolute Monocytes Absolute Eosinophils Absolute Basophils PT INR APTT > 155.0 H* D D-Dimer Sodium Potassium Chloride Carbon Dioxide Anion Gap BUN Creatinine Estimated GFR/1.73 m2 Glucose Calcium Magnesium Total Bilirubin AST ALT Alkaline Phosphatase Troponin I Cancelled < 0.05 Total Protein Albumin [place] 09/24/20 09/24/20 09/24/20 04:55 04:55 06:30 WBC RBC Hgb Hct MCV MCH MCHC RDW Plt Count MPV Immature Gran % Neutrophils % Lymphocytes % Monocytes % Eosinophils % Basophils % Nucleated RBC % Absolute Neutrophils Absolute Lymphocytes Absolute Monocytes Absolute Eosinophils Absolute Basophils PT INR APTT Cancelled Cancelled D-Dimer Sodium 138 Potassium 4.1 Chloride 109 H Carbon Dioxide 18.8 L Anion Gap 10.2 BUN 27 H Creatinine 1.43 H Estimated GFR/1.73 m2 37.69 Glucose 143 H Calcium 8.3 L Magnesium Total Bilirubin AST ALT Alkaline Phosphatase Troponin I Total Protein Albumin [place] 09/24/20 09/24/20 06:30 06:30 WBC RBC Hgb Hct MCV MCH MCHC RDW Plt Count MPV Immature Gran % Neutrophils % Lymphocytes % Monocytes % Eosinophils % Basophils % Nucleated RBC % Absolute Neutrophils Absolute Lymphocytes Absolute Monocytes Absolute Eosinophils Absolute Basophils PT INR APTT > 155.0 H* D-Dimer Sodium Potassium Chloride Carbon Dioxide Anion Gap BUN Creatinine Estimated GFR/1.73 m2 Glucose Calcium Magnesium Total Bilirubin AST ALT Alkaline Phosphatase Troponin I Total Protein Albumin [place] 1.38 H Last Vital Signs Temp 36.8 C 09/24/20 11:49 Pulse 53 L 09/24/20 10:31 Resp 25 H 09/24/20 10:31 BP 138/86 09/24/20 10:31 Pulse Ox 98 09/24/20 10:04 COVID-19 Screening Have you, or household traveled for leisure in last 14 days?: No Had IN PERSON contact w/suspected or confirmed C-19 person: No
--- NOTE | 2020-09-24 13:02 | W.PM.DS.N ---
DS: Diagnosis Discharge Diagnosis (1) COVID-19: Status: Acute (2) Depression: Status: None (3) Chest pain: Status: Acute (4) Badip-cl-veodyrp kidney injury: Status: Acute Discharge Plan Disposition Patient Disposition: HOME Condition: Improving Discharge Details Reason For Visit: COVID PNEUMONIA, CHEST PAIN RULE OUT MT Admit Date/Time: 09/23/20 15:31 Admit Provider: Cristian Silva Attending Provider: Cristian Silva Primary Care Provider: Lisa Munoz V Hospital Course Hospital Course: 59-year-old female with history of hyperlipidemia, hypertension, family history positive for cardiac disease, presents with chief complaint of chest pain. Patient notes she recently tested positive for Covid by PCR on 09/19/2020. Her also tested positive. She did receive an infusion of combined convalescent plasma the day prior to presentation to the ED. She has been having viral symptoms with myalgias and dry cough for the past 5 days. On the day of presentation she developed retrosternal chest discomfort described as a heaviness. Discomfort is worse with exertion including stairs. Patient received aspirin and sublingual nitroglycerin x4 by EMS. This did improve her pain. Pain of 5/10 in the ED. Pain was improved with certain positions including lying flat. She has no associated leg swelling or calf pain. She does have associated shortness of breath. Her RA oxygen saturations were normal with the exception of an initial reading of 89%. CXR shows bilateral interstitial changes consistent with atypical pneumonia. WBC count normal. Creatinine elevated at 1.81. Her baselin is 1.09-1.33 range. Heparin and nitroglycerin drips initiated in the ED. She was admitted and dexamethasone 6mg po daily initiated. The nitroglycerine drip was discontinued. Her RA oxygenation saturations remained normal. Her substernal chest discomfort improved and continued to be mostly present when ambulating to the bathroom and significantly better lying supine. She had no fevers. Her creatinine improved and a CTA chest was performed. No pulmonary embolism noted. Present were patchy ground-glass densities and low lung volumes. The heparin drip was d/c'd. She was given a dose SC dose of Lovenox and then this was d/c'd after the CTA chest results were known. She will continue dexamethasone for 3 more days. F/U with her PCP in 1-2 weeks. Home Meds and New Rx's Prescriptions: New acetaminophen [Tylenol] 325 mg Tablet 650 mg PO Q4H PRN PRNQty: 0 RF: 0 dexamethasone 4 mg Tablet 6 mg PO DAILY 3 Days Qty: 5 RF: 0 Continued lithium carbonate 300 mg capsule 300 mg PO BID RF: 0 topiramate 100 mg tablet 100 mg PO BID RF: 0 levothyroxine 25 mcg tablet 25 mcg PO DAILY RF: 0 benztropine 1 mg tablet 1 mg PO .QHS RF: 0 topiramate [Topamax] 50 mg tablet 50 mg PO BID RF: 0 Vraylar 1.5 mg capsule 1.5 mg PO DAILY RF: 0 Vraylar 4.5 mg capsule 4.5 mg PO DAILY RF: 0 hydroxyzine pamoate 50 mg capsule 50 - 150 mg PO HS RF: 0 lithium carbonate 150 mg capsule 150 mg PO HS RF: 0 Discharge Instructions Instructions: COVID-19 (Coronavirus Disease 2019) (DC) Activity:: Activity as Tolerated Equipment/Supplies:: No Equipment Needed Diet:: As Tolerated Discharge Orders Discharge Orders: Discharge Order (Routine); Ordered 09/24/20 Ordered By: Cristian Silva DS: Summary Status at Discharge Functional status at discharge: independent ambulation Overall status at discharge: patient is progressing back to baseline Mental Status: mental status grossly normal Speech and Movement: speech and movement normal Mood: congruent mood Affect: normal affect Exam Const General: cooperative and no acute distress Nutritional Appearance: obese Orientation: alert and oriented x3 Chest Chest: tenderness (across chest wall with compression of sternum) Resp Effort & Inspection: normal respiratory effort Auscultation: clear to auscultation bilaterally and diminished lung sounds Cardio Jugular venous pressure: no JVD Rate: bradycardic Rhythm: regular rhythm Heart Sounds: S1 normal and S2 normal GI Palpation: soft and nontender Auscultation: normal bowel sounds Neuro General: moves all extremities and no focal motor deficits Cognition: normal cognition Speech: speech normal Extrem General: normal to inspection Right upper extremity: normal to inspection Psych Mental Status: mental status grossly normal Speech and Movement: speech and movement normal Mood: congruent mood Affect: normal affect DS: Data Vitals/I&O Vitals and I&O: Vital Signs Temperature 36.8 C 09/24/20 11:49 Temperature Source Temporal Artery Scan 09/24/20 11:49 Pulse 53 L 09/24/20 10:31 Pulse 74 09/24/20 10:31 Respiratory Rate 25 H 09/24/20 10:31 Respiratory Effort 09/24/20 11:49 Respiratory Depth Normal 09/24/20 11:49 Respiratory Pattern Normal 09/24/20 11:49 Blood Pressure 138/86 09/24/20 10:31 Blood Pressure Mean 96 09/24/20 10:31 Blood Pressure Position Supine 09/24/20 11:49 Pulse Oximetry 98 09/24/20 10:04 Oxygen Delivery Method Room Air 09/24/20 11:49 Oxygen Flow Rate 0 09/24/20 11:49 Pain Level 0 09/24/20 08:27 Intake & Output 09/23/20 09/24/20 09/24/20 23:59 11:59 23:59 Intake Total 1685.050 / 1707.550 855.25 / 855.25 Output Total 1850 / 1850 Balance 1685.050 / 1707.550 -994.75 / -994.75 Weight 104.326 kg 105.1 kg Intake: IV 1345.050 / 1367.550 135.25 / 135.25 Oral 340 / 340 720 / 720 Output: Urine 1850 / 1850 Other: Urine Color Yellow Brown Urine Appearance Cloudy Urine Odor Strong Comment Void 700cc cloudy yellow/maribel urine. Stool Size Moderate Stool Characteristics Liquid Voiding Methods Bedside Commode Data Completed and Pending Labs on day of discharge: Labs from last 24 hours 09/24/20 09/24/20 09/24/20 06:30 06:30 06:30 APTT > 155.0 H* Cancelled D-Dimer Sodium Potassium Chloride Carbon Dioxide Anion Gap BUN Creatinine Estimated GFR/1.73 m2 Glucose Calcium Troponin I [place] 1.38 H 09/24/20 09/24/20 09/23/20 04:55 04:55 19:42 APTT Cancelled > 155.0 H* D D-Dimer Sodium 138 Potassium 4.1 Chloride 109 H Carbon Dioxide 18.8 L Anion Gap 10.2 BUN 27 H Creatinine 1.43 H Estimated GFR/1.73 m2 37.69 Glucose 143 H Calcium 8.3 L Troponin I [place] 09/23/20 09/23/20 09/23/20 19:00 18:46 16:05 APTT D-Dimer Sodium 139 Potassium 3.6 Chloride 108 H Carbon Dioxide 23.6 Anion Gap 7.4 BUN 25 H Creatinine 1.66 H Estimated GFR/1.73 m2 31.73 Glucose 100 Calcium 7.7 L Troponin I < 0.05 Cancelled [place] 09/23/20 09/23/20 14:35 12:34 APTT D-Dimer 511 H Sodium Potassium Chloride Carbon Dioxide Anion Gap BUN Creatinine Estimated GFR/1.73 m2 Glucose Calcium Troponin I < 0.05 [place] PFSH Medical History (Updated 09/24/20 @ 12:59 by Cristian Silva MD) ADD Benign hypertension Bipolar disorder Cataract Chronic headaches Colorectal polyps Depression Headache Hyperlipidemia Obsessive-compulsive disorder PTSD (post-traumatic stress disorder) Tubular adenoma of colon Surgical History Cholecystectomy gastric sleeve History of cataract surgery Ligation of fallopian tube S/P colonoscopy 2015- Polyps Family History Mother Heart disease Hyperlipidemia Mental disorder Father Hyperlipidemia Mental disorder Grandmother Personal history of malignant neoplasm Mental disorder aunt Personal history of malignant neoplasm Social History Smoking/Tobacco Use Status: Never Smoking risk assessment performed?: Yes Alcohol Intake: current Alcohol Intake frequency: a few times a month Alcohol type: hard liquor Drug use: Never Substance use type: does not use Current gender identity: female Do you feel safe at home: Yes Do you feel safe in your relationship?: Yes
== END 2020-09-24 14:15 | disposition home or self-care (01) | DRG 177 ==
LOC: ER 16:07 → ICU 16:58
PROVIDERS: Internal Medicine; Admitting Provider Family Medicine; Emergency Provider Student in an Organized Health Care Education/Training Program; PCP Family Medicine; Visit Provider Family Medicine
DX: U07.1 COVID-19; J12.89 Other viral pneumonia; N17.9 Acute kidney failure, unspecified; E78.5 Hyperlipidemia, unspecified; R94.31 Abnormal electrocardiogram [ECG] [EKG]; F98.8 Other specified behavioral and emotional disorders with onset usually occurring in childhood and adolescence; R07.9 Chest pain, unspecified; F31.9 Bipolar disorder, unspecified; F32.9 Major depressive disorder, single episode, unspecified; F43.10 Post-traumatic stress disorder, unspecified; F42.9 Obsessive-compulsive disorder, unspecified; G44.89 Other headache syndrome; N18.9 Chronic kidney disease, unspecified; I12.9 Hypertensive chronic kidney disease with stage 1 through stage 4 chronic kidney disease, or unspecified chronic kidney disease
CPT/HCPCS: 36415; 36592; 71275; 80048; 80053; 93005; 96361; 96365; 96366; 96368; 96376; 99223; 99239; 99291; 71045; 80178; 83735; 84484; 85025; 85379; 85610; 85730; 93010; 99236; J1650; J3490; J8540

== ENCOUNTER 2020-09-28 17:55 | Outpatient (REF) | payer OTHER, SELFPAY ==
[2020-10-03 09:52] LABS: COVID-19 RT-PCR Result INCONCLUSIVE (Negative)
== END 2020-09-28 18:15 ==
LOC: NCHCN 17:55
PROVIDERS: PCP Family Medicine; Visit Provider Family Medicine
DX: Z20.828 Contact with and (suspected) exposure to other viral communicable diseases (principal)
CPT/HCPCS: U0003

== ENCOUNTER 2020-12-07 03:22 | Outpatient (CLI) | payer OTHER, SELFPAY ==
[2020-12-07 15:03] LABS: Abs Immature Grans 0.01 10^3/uL (0.0-0.06); Absolute Basophil Count 0.06 10^3/uL (0.0-0.2); Absolute Eosinophil Count 0.31 10^3/uL (0.0-0.7); Absolute Lymphocyte Count 1.61 10^3/uL (1.2-3.4); Absolute Neutrophil Count 3.89 10^3/uL (1.2-6.7); Eosinophils % 4.9; HCT 44.8 % (36.0-46.0); Immature Grans % 0.2; Lymphocytes % 25.6; MCH 31.6 pg (27.0-33.0); MCHC 33.5 % (32.0-36.0); MCV 94.5 fL (80-95); MPV 9.2 fL (8.0-11.0); Monocytes % 6.4; Neutrophils % 61.9; Nucleated RBC 0 %; Platelet Count 217 10^3/uL (130-400); RBC 4.74 10^6/uL (3.93-5.22); RDW 12.5 % (11.7-14.6); RDW-SD 43.8 fL; WBC 6.28 10^3/uL (4.4-10.8)
[2020-12-07 15:17] LABS: Hemoglobin A1C 5.6 % (<5.7)
[2020-12-07 15:56] LABS: Lithium 0.3 mmol/l (0.6-1.2)
[2020-12-07 16:19] LABS: Vitamin D 25 Total 7.6 ng/ml (30-100)
[2020-12-07 16:50] LABS: ALT 25 U/L (14-59); AST 14 U/L (15-37); Albumin 3.8 g/dL (3.4-5.0); Alkaline Phosphatase 65 U/L (46-116); Anion Gap 8.6 mmol/L (3-11); BUN 17 mg/dL (7-18); Bilirubin, Total 0.4 mg/dL (0.2-1.0); CO2 27.4 mmol/L (21.0-32.0); CREATININE 1.5 mg/dL (0.55-1.02); Calcium 9.1 mg/dL (8.5-10.1); Calculated LDL 192 mg/dL (<100); Chloride 106 mmol/L (98-107); Cholesterol 295 mg/dL (<200); Estimated GFR 35.54 (mL/min/1.73m2); Folate 6.7 ng/mL (8.6-20.0); Glucose 105 mg/dL (74-106); HDL Cholesterol 61 mg/dL (40-60); Potassium 4.4 mmol/L (3.5-5.1); Sodium 142 mmol/L (136-145); Total Protein 6.8 g/dL (6.4-8.2); Triglyceride 212 mg/dL (<150); Vitamin B12 293 pg/mL (193-986)
[2020-12-08 19:46] LABS: Thyrotropin Receptor Ab <1.10 IU/L
[2020-12-11 14:50] LABS: Free Retinol (Vitamin A) 66.5 mcg/dL (32.5-78.0)
== END 2020-12-07 03:23 | disposition home or self-care (01) ==
LOC: LBO 03:22
PROVIDERS: PCP Family Medicine; Visit Provider Nurse Practitioner Psychiatric/Mental Health
DX: F31.81 Bipolar II disorder (principal); Z79.899 Other long term (current) drug therapy; Z51.81 Encounter for therapeutic drug level monitoring
CPT/HCPCS: 36415; 80053; 80061; 82306; 80178; 82607; 82746; 83036; 84235; 84590; 85025

== ENCOUNTER 2021-03-21 02:51 | Outpatient (CLI) | payer OTHER, SELFPAY ==
[2021-03-21 12:59] LABS: BUN 20 mg/dL (7-18); CREATININE 1.4 mg/dL (0.55-1.02); Estimated GFR 38.49 (mL/min/1.73m2)
== END 2021-03-21 02:52 | disposition home or self-care (01) ==
LOC: LBO 02:51
PROVIDERS: PCP Family Medicine; Visit Provider Nurse Practitioner Psychiatric/Mental Health
DX: F31.81 Bipolar II disorder (principal); Z79.899 Other long term (current) drug therapy; Z51.81 Encounter for therapeutic drug level monitoring
CPT/HCPCS: 36415; 84520; 80178; 82565

== ENCOUNTER 2021-04-06 16:11 | Outpatient (REF) | payer OTHER, SELFPAY ==
[2021-04-06 19:41] LABS: Bilirubin Negative (Negative); Blood Trace-intact (Negative); Clarity Sl Cloudy (Clear); Glucose Negative (Negative); Ketones Negative (Negative); Leukocyte Esterase Moderate (Negative); Nitrite Positive (Negative); Specific Gravity 1.025 (1.005-1.025); Urobilinogen 0.2 EU/dL (Up TO 0.2); pH 5.5 (5-8)
[2021-04-06 19:49] LABS: Bacteria Packed HPF (Negative); C & S Indicated? Yes; Crystals Negative HPF (Negative); Epithelial Cells Negative HPF (Negative); Mucus Negative (Negative); RBC 0-2 HPF (0-2); WBC >50 HPF (0-5)
[2021-04-06 19:57] LABS: HCT 46.1 % (36.0-46.0); HGB 14.8 g/dL (11.2-15.7); MCH 31.1 pg (27.0-33.0); MCHC 32.1 % (32.0-36.0); MCV 96.8 fL (80-95); Platelet Count 219 10^3/uL (130-400); RBC 4.76 10^6/uL (3.93-5.22); RDW-SD 46.8 fL
[2021-04-06 20:15] LABS: Hemoglobin A1C 5.5 % (<5.7)
[2021-04-06 20:16] LABS: Iron 123 ug/dL (50-170)
[2021-04-06 20:30] LABS: ALT 24 U/L (14-59); AST 11 U/L (15-37); Albumin 3.7 g/dL (3.4-5.0); Alkaline Phosphatase 56 U/L (46-116); Anion Gap 8.1 mmol/L (3-11); BUN 21 mg/dL (7-18); Bilirubin, Total 0.3 mg/dL (0.2-1.0); CO2 23.9 mmol/L (21.0-32.0); CREATININE 1.4 mg/dL (0.55-1.02); Calcium 9.1 mg/dL (8.5-10.1); Chloride 111 mmol/L (98-107); Estimated GFR 38.49 (mL/min/1.73m2); Ferritin 60 ng/mL (8-252); Glucose 110 mg/dL (74-106); Potassium 4.3 mmol/L (3.5-5.1); Sodium 143 mmol/L (136-145); TSH (W/Ref FT4) 2.11 uIU/mL (0.36-3.74); Total Protein 6.8 g/dL (6.4-8.2)
[2021-04-06 20:40] LABS: C-Reactive Protein 0.07 mg/dL (0.0-0.3)
[2021-04-09 11:54] LABS: Lyme Ab w Rflx to Lyme Confirm Negative (Negative)
[2021-04-10 20:13] LABS: Anaplasma phagocytophilum Negative (Negative); B. miyamotoi PCR Negative (Negative); Babesia divergens/MO-1 Negative (Negative); Babesia duncani Negative (Negative); Babesia microti Negative (Negative); Ehrlichia chaffeensis Negative (Negative); Ehrlichia ewingii/canis Negative (Negative); Ehrlichia muris eauclairensis Negative (Negative)
== END 2021-04-06 16:12 | disposition home or self-care (01) ==
LOC: NCHCN 16:11
PROVIDERS: PCP Family Medicine; Visit Provider Family Medicine
DX: Z00.00 Encounter for general adult medical examination without abnormal findings (principal); G47.9 Sleep disorder, unspecified; G45.4 Transient global amnesia
CPT/HCPCS: 80053; 85027; 87077; 87798; 81003; 81015; 82728; 83036; 83540; 84443; 86140; 86618; 87086; 87186

== ENCOUNTER 2021-04-18 01:25 | Outpatient (CLI) | payer OTHER, SELFPAY ==
--- NOTE | 2021-04-18 16:23 | DI.MAMMO_ITS ---
Exam(s) MAMMO SCREENING EXAM: MAMMO SCREENING CLINICAL HISTORY: SCREENING, Z00.00, PREVENTIVE HEALTH CARE TECHNIQUE: Mammograms were interpreted according to the usual protocol including computer analysis w [employer] CAD system, tomosynthesis and C-view imaging. COMPARISON: 2011 through 2018 FINDINGS: The breasts are composed of scattered fibroglandular densities, Breast Density category B. No suspicious masses or suspicious microcalcifications are seen. No skin thickening or abnormal axillary lymph nodes are seen. There has been no significant change from prior exams. IMPRESSION: BI-RADS Category 1, Negative mammogram Yearly screening mammography is recommended. Breast Density - Category B, scattered fibroglandular densities. A negative radiographic report should not delay biopsy if a dominant or clinically suspicious mass is present. Up to ten percent of cancers are not identified on mammography. A negative report may reinforce clinical impression. Adenosis and dense breasts may obscure an underlying neoplasm. False positive reports average 6 to 10%. Patient will receive a letter notifying them of these results.
== END 2021-04-18 01:45 ==
PROVIDERS: PCP Family Medicine; Visit Provider Family Medicine
DX: Z00.00 Encounter for general adult medical examination without abnormal findings (principal); Z12.31 Encounter for screening mammogram for malignant neoplasm of breast
CPT/HCPCS: 77063; 77067

== ENCOUNTER 2021-04-23 03:38 | Outpatient (CLI) | payer OTHER, SELFPAY | END 2021-04-23 03:39 | disposition home or self-care (01) | LOC: RT 03:38 | PROVIDERS: PCP Family Medicine; Visit Provider Family Medicine | DX: R06.09 Other forms of dyspnea (principal) | CPT/HCPCS: 93270 ==

== ENCOUNTER 2021-05-04 04:33 | Outpatient (CLI) | payer OTHER, SELFPAY ==
[2021-05-04 10:26] LABS: CREATININE 1.3 mg/dL (0.55-1.02); Estimated GFR 41.92 (mL/min/1.73m2)
[2021-05-04] MEDS: Gadoterate meglumine 20 ML VIAL IVP (10:33)
--- NOTE | 2021-05-04 10:40 | DI.MRI_ITS ---
Exam(s) MR BRAIN WO/W EXAM: MR BRAIN WO/W CLINICAL HISTORY: DYSPNEA ON EXERTION,R06.09,TREMOR,R25.1,MEMORY IMPAIRTMENT,R41.3,H/O COVID. TECHNIQUE: Multiplanar multisequence MRI of the brain was performed. CONTRAST MATERIAL: IV Contrast: 20 ML of Dotarem contrast administered. COMPARISON: None FINDINGS: VENTRICLES AND EXTRA AXIAL SPACES: Normal in size and morphology for the patient's age. HEMORRHAGE: None. CEREBRAL PARENCHYMA: No focus of restricted diffusion to suggest acute infarct. No space-occupying le jacob identified. No white matter lesions. No significant atrophy. MIDLINE SHIFT: None. BRAINSTEM/CEREBELLUM: Normal. Orbits: Unremarkable. ENHANCEMENT: No suspicious enhancement identified. VISUALIZED PARANASAL SINUSES/MASTOIDS: Clear. OTHER FINDINGS: None. IMPRESSION: Unremarkable MRI of the brain. DATA REPOSITORY:
== END 2021-05-04 04:53 ==
PROVIDERS: PCP Family Medicine; Visit Provider Family Medicine
DX: R06.09 Other forms of dyspnea (principal); R25.1 Tremor, unspecified; R41.3 Other amnesia; R79.89 Other specified abnormal findings of blood chemistry; Z86.16 Personal history of COVID-19
CPT/HCPCS: 70553; 82565

== ENCOUNTER 2021-05-09 02:15 | Outpatient (CLI) | payer OTHER, SELFPAY ==
--- NOTE | 2021-05-09 13:00 | DI.US_ITS ---
APPROVED REPORT EXAM: Comprehensive 2D, Doppler, and color-flow Echocardiogram Patient Location: Out-Patient Director Workers Compensation: Shamika Russell RDCS (AE) Indications: Dyspnea on exertion, COVID Other Information Study Quality: Fair. Technically limited study due to body habitus. Conclusion Left Ventricle : The left ventricle is normal size. The left ventricular ejection fraction is within the normal range. There is normal left ventricular wall thickness. There is normal LV segmental wall motion. LVEF is 60%. Right Ventricle : Right ventricle is grossly normal in size. Right ventricular systolic function is g rossly normal. The RVSP is 28.4mmHg. Aortic Valve : The aortic valve is normal in structure. Aortic valve is trileaflet. Mild aortic regur gitation. There is no aortic valvular stenosis. Great Vessels : The aortic root is normal in size. The ascending aorta is normal in size. Aortic arch is normal in caliber. IVC is normal in size and collapses >50% with inspiration. Please see remainder of study for further details. Wall motion Left Ventricle The left ventricle is normal size. The left ventricular ejection fraction is within the normal range. There is normal left ventricular wall thickness. There is normal LV segmental wall motion. There is no ventricular septal defect visualized. LVEF is 60%. Right Ventricle Right ventricle is grossly normal in size. Right ventricular systolic function is grossly normal. The RVSP is 28.4mmHg. Atria The left atrium size is normal. The right atrium size is normal. The interatrial septum is intact wit h no evidence for an atrial septal defect. Aortic Valve The aortic valve is normal in structure. Aortic valve is trileaflet. There is no aortic valvular sten osis. Mild aortic regurgitation. Mitral Valve Mild mitral annular calcification. No evidence of mitral valve stenosis. Trace mitral regurgitation. Tricuspid Valve The tricuspid valve is normal in structure. There is no tricuspid valve stenosis. Trace tricuspid reg urgitation. Pulmonic Valve The pulmonary valve is normal in structure. There is no pulmonic valvular stenosis. There is no pulmo shruthi valvular regurgitation. Great Vessels The aortic root is normal in size. The ascending aorta is normal in size. Aortic arch is normal in ca liber. IVC is normal in size and collapses >50% with inspiration. Pericardium There is no pericardial effusion. 2D Dimensions IVSD d PLAX 0.97 cm F: 0.6-1.0 LV Vol A2C d MOD 97.4 mL LVPW d PLAX 1.00 cm F: 0.6 - 1.0 LV Vol A4C d MOD 101.2 mL LVID d PLAX 5.03 cm F: 3.8 - 5.2 LA vol/ BSA A2C s A-L 26.4 mL/m2 LVDs 3.45 cm F: 2.2 - 3.5 LA vol/ BSA A4C s A-L 21.8 mL/m2 Ao Root d 2.40 cm F: 2.7 - 3.3 LA Vol/ BSA Biplane s A-L 24.1 mL/m2 RA Area A4C 10.83 cm2 LA Area A4C s MOD 17.79 cm2 RA Vol/ BSA A4C s A-L 12.3 mL/m2 LA Area A2C s MOD 19.69 cm2 Ao Asc Diam d 3.13 cm F: 2.3 - 3.1 LV EF A4C MOD 62.3 % LV EF Teichholz 57.9 % LV EF A2C MOD 60.5 % LVEF (Hamilton's) 61.40 % F: 54 - 74 LV EF Biplane MOD 61.4 % LV Volume 73.71 mL F: 46 - 106 SV 61.04 mL LV Volume Index 35.60 mL/m2 F: 29 - 61 SV Index 29.47 mL/m2 LV Vol Biplane MOD 99.4 mL FS 30.60 % M-Mode TAPSE 3.57 cm (M/F) >1.7 LV Diastology MV E' medial 0.136 (>0.07 m/s) E/A Ratio 1.1 LV E/e MED 7.05 (<14) MV E Vmax 0.96 (0.4-1.3 m/s) MV E' lateral 0.086 (>0.1 m/s) MV A Vmax 0.85 (0.4-1.3 m/s) LV E/e LAT 11.25 (<14) MV E/A Ratio 1.10 MV E/E' medial 7.10 MV E/E' lateral 11.26 Aortic Valve LVOT Area 2.95 cm2 AoV Area Vmax 2.01 cm2 LVOT Vmax 1.24 m/s AoV Area/ BSA (Vmax) 0.97 cm2/m2 LVOT Mean Jostin. 0.77 m/s MANI Mean Jostin. 1.76 cm2 LVOT Peak Grad 6.1 mmHg MANI Mean Jostin. Index 0.85 cm2/m2 LVOT Mean Grad 2.9 mmHg AR DT 2203 msec LVOT VTI 0.246 m AR PHT 639 msec LVOT Diam s 1.90 cm AoV Vmax 1.82 m/s Velocity Ratio 0.68 AoV Mean Jostin. 1.30 m/s AoV Peak Grad 13.3 mmHg LVOT SV 72.49 mL AoV Mean Grad 7.4 mmHg AoV VTI 0.393 m AoV Area VTI 1.84 cm2 AoV Area/ BSA (VTI) 0.89 cm/m2 Mitral Valve MV DT 220 (160-240 msec) MV PHT 64 msec MV Area PHT 3.45 cm2 MV VTI 0.344 m MV Area VTI 2.10 (4.0-6.0 cm2) Pulmonary Valve PV Vmax 1.45 (0.5-1.5 m/s) RVOT Peak Gr. 3.90 mmHg PV Peak Grad 8.4 mmHg RVOT Mean Gr. 1.95 mmHg PV Mean Grad 4.4 mmHg RVOT VTI 0.226 m PV VTI 0.341 m RVOT Vmax 0.99 m/s Tricuspid Valve TR Peak Grad 25.3 mmHg TR Vmax 2.52 m/s RA Pressure 3.00 mmHg RVSP (TR) 28.4 mmHg
== END 2021-05-09 02:35 ==
PROVIDERS: PCP Family Medicine; Visit Provider Family Medicine
DX: R06.09 Other forms of dyspnea (principal); U07.1 COVID-19
CPT/HCPCS: 93306

== ENCOUNTER 2021-05-17 09:59 | Outpatient (CLI) | payer OTHER, SELFPAY ==
[2021-05-17] MEDS: Albuterol HFA 18 GM 200 PUFF INH IH (14:18)
[2021-05-17] MEDS: Inhaler, Assist Device 1 EACH MC (14:18)
--- NOTE | 2021-05-20 19:00 | W.PFT ---
Date of service: 05/17/21 Time of Service: 13:14 Pulmonary Function Test Result Interpretation Spirometry: There is no airflow obstruction. There is no bronchodilator response. The FVC is low. The MIP and MEP are low. Lung Volumes: Lung volumes are normal Diffusion Capacity: Diffusion is normal Airway Pressure: Airway resistance is normal Note: The low FVC may be due to pseudo-restriction from obesity, muscle weakness or inadequate effort. With the decreased MIP and MEP, muscle weakness maybe present versus inadequate effort. Clinical Correlation therefore is recommended.
--- NOTE | 2021-05-24 10:32 | W.CARDEVENT ---
Date of service: 05/24/21 Time of Service: 10:32 Cardiac Event Recorder Referring Provider:: Kirill Indications:: A Cardiac Event Note: There is a 30-day event recorder order for indication of palpitations. ?The patient was in normal sinus rhythm for the majority of the recording with an average heart rate of 60 bpm. ?There were no episodes of atrial fibrillation, no pauses greater than 3 seconds and no evidence of high degree heart block. ?There were no episodes of ventricular tachycardia. ?There were 14 patient triggered events described as shortness of breath/flutter or skipped beat. All of these triggers were associated with sinus rhythm or sinus bradycardia.
== END 2021-05-17 10:00 | disposition home or self-care (01) ==
LOC: RT 10:00
PROVIDERS: PCP Family Medicine; Visit Provider Student in an Organized Health Care Education/Training Program
DX: R06.09 Other forms of dyspnea (principal); B94.8 Sequelae of other specified infectious and parasitic diseases
CPT/HCPCS: 94060; 94726; 94729

== ENCOUNTER 2021-11-07 01:25 | Outpatient (CLI) | payer OTHER, SELFPAY ==
[2021-11-07 15:58] LABS: Lithium 0.3 mmol/l (0.6-1.2)
[2021-11-07 16:33] LABS: BUN 23 mg/dL (7-18); CREATININE 1.3 mg/dL (0.55-1.02); Estimated GFR 41.78 (mL/min/1.73m2); TSH (W/Ref FT4) 1.43 uIU/mL (0.36-3.74)
== END 2021-11-07 01:26 | disposition home or self-care (01) ==
LOC: LBO 01:25
PROVIDERS: PCP Family Medicine; Visit Provider Nurse Practitioner Psychiatric/Mental Health
DX: F31.81 Bipolar II disorder (principal); F43.10 Post-traumatic stress disorder, unspecified
CPT/HCPCS: 36415; 84520; 80178; 82565; 84443

== ENCOUNTER 2021-12-10 03:18 | Outpatient (CLI) | payer OTHER, SELFPAY ==
[2021-12-10 14:15] LABS: BUN 23 mg/dL (7-18); CREATININE 1.4 mg/dL (0.55-1.02); Estimated GFR 38.36 (mL/min/1.73m2)
[2021-12-10 14:31] LABS: Lithium 0.9 mmol/l (0.6-1.2)
== END 2021-12-10 03:19 | disposition home or self-care (01) ==
LOC: LBO 03:18
PROVIDERS: PCP Family Medicine; Visit Provider Nurse Practitioner Psychiatric/Mental Health
DX: F31.81 Bipolar II disorder (principal); F10.10 Alcohol abuse, uncomplicated; Z79.899 Other long term (current) drug therapy; Z51.81 Encounter for therapeutic drug level monitoring
CPT/HCPCS: 36415; 84520; 80178; 82565

== ENCOUNTER 2022-02-22 02:40 | Outpatient (CLI) | payer OTHER, SELFPAY ==
[2022-02-22 09:53] LABS: FREE T4 1.27 ng/dL (0.76-1.46)
[2022-02-22 17:54] LABS: T3,Free 3.7 pg/mL (2.8-5.3)
[2022-02-25 11:29] LABS: Adrenocorticotropic Hormone, P <5.0 pg/mL
[2022-02-25 16:52] LABS: Free Retinol (Vitamin A) 61.4 mcg/dL (32.5-78.0)
[2022-02-26 17:52] LABS: Vitamin K1 0.29 ng/mL (0.10-2.20)
[2022-02-26 23:53] LABS: Vitamin E, Serum 11.8 mg/L (5.5 - 17.0)
[2022-02-27 08:38] LABS: Ascorbic Acid (Vit C), Plasma 0.3 mg/dL (0.4 - 2.0)
== END 2022-02-22 02:41 | disposition home or self-care (01) ==
LOC: LBO 02:40
PROVIDERS: PCP Family Medicine; Visit Provider Family Medicine
DX: E03.9 Hypothyroidism, unspecified (principal); U09.9 Post COVID-19 condition, unspecified; R25.1 Tremor, unspecified; R41.3 Other amnesia; Z98.84 Bariatric surgery status
CPT/HCPCS: 36415; 80186; 82533; 82024; 82180; 84439; 84446; 84481; 84590; 84597

== ENCOUNTER 2022-03-18 16:12 | Outpatient (REF) | payer OTHER, SELFPAY ==
[2022-03-18 18:55] LABS: Abs Immature Grans 0.02 10^3/uL (0.0-0.06); Absolute Basophil Count 0.03 10^3/uL (0.0-0.2); Absolute Eosinophil Count 0.08 10^3/uL (0.0-0.7); Absolute Monocyte Count 0.62 10^3/uL (0.1-0.8); Absolute Neutrophil Count 4.05 10^3/uL (1.2-6.7); Basophils % 0.4; Eosinophils % 1.1; HGB 15.1 g/dL (11.2-15.7); Immature Grans % 0.3; Lymphocytes % 31.4; MCH 30.6 pg (27.0-33.0); MCHC 32.8 % (32.0-36.0); MCV 93 fL (80-95); MPV 10.4 fL (8.0-11.0); Monocytes % 8.9; Neutrophils % 57.9; Platelet Count 229 10^3/uL (130-400); RBC 4.94 10^6/uL (3.93-5.22); RDW 12.5 % (11.7-14.6); RDW-SD 42.7 fL
[2022-03-18 19:13] LABS: ALT 38 U/L (14-59); AST 20 U/L (15-37); Albumin 3.9 g/dL (3.4-5.0); Alkaline Phosphatase 67 U/L (46-116); Anion Gap 10.5 mmol/L (3-11); BUN 20 mg/dL (7-18); Bilirubin, Total 0.3 mg/dL (0.2-1.0); CO2 27.5 mmol/L (21.0-32.0); CREATININE 1.1 mg/dL (0.55-1.02); Chloride 105 mmol/L (98-107); Estimated GFR 50.67 (mL/min/1.73m2); Glucose 108 mg/dL (74-106); Potassium 4.2 mmol/L (3.5-5.1); Sodium 143 mmol/L (136-145); TSH 1.07 uIU/mL (0.36-3.74)
[2022-03-18 19:19] LABS: Hemoglobin A1C 5.9 % (<5.7)
== END 2022-03-18 16:13 | disposition home or self-care (01) ==
LOC: NCHCN 16:12
PROVIDERS: PCP Family Medicine; Visit Provider Nurse Practitioner Family
DX: R35.0 Frequency of micturition (principal); Z00.00 Encounter for general adult medical examination without abnormal findings
CPT/HCPCS: 80053; 87077; 83036; 84443; 85025; 87086; 87186

== ENCOUNTER 2022-06-06 16:21 | Outpatient (REF) | payer OTHER, SELFPAY ==
[2022-06-07 23:11] LABS: COVID-19 RT-PCR UVMMC Result Negative (Negative)
== END 2022-06-06 16:22 | disposition home or self-care (01) ==
LOC: NCHCN 16:21
PROVIDERS: PCP Family Medicine; Visit Provider Family Medicine
DX: Z20.822 Contact with and (suspected) exposure to COVID-19 (principal)
CPT/HCPCS: U0003

== ENCOUNTER 2022-09-16 15:54 | Outpatient (REF) | payer OTHER, SELFPAY ==
[2022-09-16 16:11] LABS: Abs Immature Grans 0.02 10^3/uL (0.0-0.06); Absolute Basophil Count 0.05 10^3/uL (0.0-0.2); Absolute Eosinophil Count 0.19 10^3/uL (0.0-0.7); Absolute Lymphocyte Count 1.86 10^3/uL (1.2-3.4); Absolute Monocyte Count 0.41 10^3/uL (0.1-0.8); Absolute Neutrophil Count 3.28 10^3/uL (1.2-6.7); Basophils % 0.9; Eosinophils % 3.3; HCT 45.6 % (36.0-46.0); Immature Grans % 0.3; MCH 30.3 pg (27.0-33.0); MCHC 32.9 % (32.0-36.0); MCV 92 fL (80-95); MPV 9.9 fL (8.0-11.0); Monocytes % 7.1; Neutrophils % 56.4; Platelet Count 277 10^3/uL (130-400); RBC 4.95 10^6/uL (3.93-5.22); RDW 12.4 % (11.7-14.6); RDW-SD 42.2 fL; WBC 5.81 10^3/uL (4.4-10.8)
[2022-09-16 16:17] LABS: Anion Gap 7.8 mmol/L (3-11); BUN 19 mg/dL (7-18); CO2 28.2 mmol/L (21.0-32.0); CREATININE 1.3 mg/dL (0.55-1.02); Calcium 9.6 mg/dL (8.5-10.1); Chloride 107 mmol/L (98-107); Estimated GFR 47.08 (mL/min/1.73m2); Glucose 94 mg/dL (74-106); Sodium 143 mmol/L (136-145)
== END 2022-09-16 15:55 | disposition home or self-care (01) ==
LOC: NCHCN 15:54
PROVIDERS: PCP Family Medicine; Visit Provider Nurse Practitioner Family
DX: J18.9 Pneumonia, unspecified organism (principal); Z51.81 Encounter for therapeutic drug level monitoring
CPT/HCPCS: 80048; 85025

== ENCOUNTER 2023-02-17 09:24 | Outpatient (REF) | payer OTHER, SELFPAY ==
[2023-02-17 16:51] LABS: Abs Immature Grans 0.01 10^3/uL (0.0-0.06); Absolute Basophil Count 0.03 10^3/uL (0.0-0.2); Absolute Eosinophil Count 0.09 10^3/uL (0.0-0.7); Absolute Lymphocyte Count 1.59 10^3/uL (1.2-3.4); Absolute Monocyte Count 0.33 10^3/uL (0.1-0.8); Absolute Neutrophil Count 2.37 10^3/uL (1.2-6.7); Basophils % 0.7; HCT 45.3 % (36.0-46.0); HGB 15.1 g/dL (11.2-15.7); Immature Grans % 0.2; MCH 31.5 pg (27.0-33.0); MCHC 33.3 % (32.0-36.0); MCV 94 fL (80-95); MPV 10.3 fL (8.0-11.0); Monocytes % 7.5; Neutrophils % 53.6; Platelet Count 197 10^3/uL (130-400); RDW 12.1 % (11.7-14.6); RDW-SD 42.5 fL; WBC 4.42 10^3/uL (4.4-10.8)
[2023-02-17 17:31] LABS: Hemoglobin A1C 5.6 % (<5.7)
[2023-02-17 17:34] LABS: Anion Gap 7.2 mmol/L (3-11); BUN 17 mg/dL (7-18); CO2 27.8 mmol/L (21.0-32.0); CREATININE 1.3 mg/dL (0.55-1.02); Calcium 9.2 mg/dL (8.5-10.1); Calculated LDL 100 mg/dL (<100); Chloride 108 mmol/L (98-107); Cholesterol 189 mg/dL (<200); Estimated GFR 46.78 (mL/min/1.73m2); Glucose 110 mg/dL (74-106); HDL Cholesterol 68 mg/dL (40-60); Potassium 3.9 mmol/L (3.5-5.1); Sodium 143 mmol/L (136-145); TSH (W/Ref FT4) 0.94 uIU/mL (0.36-3.74); Triglyceride 107 mg/dL (<150)
== END 2023-02-17 09:25 | disposition home or self-care (01) ==
LOC: LBN 09:24
PROVIDERS: PCP Family Medicine; Visit Provider Nurse Practitioner Family
DX: F31.81 Bipolar II disorder (principal); Z51.81 Encounter for therapeutic drug level monitoring; Z79.899 Other long term (current) drug therapy
CPT/HCPCS: 80048; 80061; 83036; 84443; 85025

== ENCOUNTER 2023-05-16 16:13 | Outpatient (REF) | payer OTHER, SELFPAY | END 2023-05-16 16:14 | disposition home or self-care (01) | LOC: LBN 16:13 | PROVIDERS: PCP Family Medicine; Visit Provider Physician Assistant Medical | DX: R30.0 Dysuria (principal) | CPT/HCPCS: 87077; 87086; 87186 ==

== ENCOUNTER 2023-07-29 14:07 | Outpatient (REF) | payer OTHER, SELFPAY | END 2023-07-29 14:08 | disposition home or self-care (01) | LOC: NCHCN 14:07 | PROVIDERS: PCP Family Medicine; Visit Provider Family Medicine | DX: N39.0 Urinary tract infection, site not specified (principal) | CPT/HCPCS: 87077; 87086; 87186 ==

== ENCOUNTER 2023-08-15 22:35 | Outpatient (REF) | payer OTHER, SELFPAY | END 2023-08-15 22:36 | disposition home or self-care (01) | LOC: NCHCN 22:35 | PROVIDERS: PCP Family Medicine; Visit Provider Nurse Practitioner Family | DX: N39.0 Urinary tract infection, site not specified (principal) | CPT/HCPCS: 87077; 87086; 87186 ==

== ENCOUNTER → 2023-09-03 12:22 | Outpatient (CLI) | payer OTHER, SELFPAY ==
--- NOTE | 2023-09-03 | DI.US_ITS ---
Exam(s) US RENAL EXAM: US RENAL CLINICAL HISTORY: LOW BACK PAIN M54.50. TECHNIQUE: Lou scale, color and spectral Doppler were used. COMPARISON: CT ABD PELVIS WO CONTRAST from 10/02/2015 US RENAL ULTRASOUND(P) {[id number]} from 11/13/2015 FINDINGS: Renal size in cm: Right: 10.7 left: 11.7 Echogenicity: Right kidney shows mildly increased echogenicity. Left kidney shows normal echogenici ty. Hydronephrosis: [id number] right hydronephrosis. Similar appearance to prior CT and ultrasound . No left hydronephrosis. Cyst or mass: No Nephrolithiasis: No Right renal parenchymal thinning. Bladder:Normal. Both ureteral jets were visualized. Prevoid vol: 103 cc Postvoid vol:0 cc IMPRESSION: [id number] right hydronephrosis, similar to prior exams. The findings could be secondary to ch ronic mild obstruction. Urology consult recommended. DATA REPOSITORY:
--- NOTE | 2023-09-03 | DI.RAD_ITS ---
Exam(s) XR THORACIC SPINE COMPLETE EXAM: XR THORACIC SPINE COMPLETE CLINICAL HISTORY: LOW BACK PAIN M54.50. TECHNIQUE: 2D digital imaging was performed. Three views. COMPARISON: No exams were available for comparison FINDINGS: BONES: There is no fracture or destructive lesion. The vertebral bodies and posterior elements are un remarkable. Anterior fusion hardware and lower cervical spine. ALIGNMENT: Within normal limits. DISKS: Interverebral disc spaces are maintained. Minimal endplate osteophytes. SOFT TISSUE: Visualized lungs are clear. IMPRESSION: Mild degenerative changes. DATA REPOSITORY: RADIATION DOSE DELIVERED:
== END ==
PROVIDERS: PCP Family Medicine; Visit Provider Nurse Practitioner Family
DX: N13.2 Hydronephrosis with renal and ureteral calculous obstruction (principal); M54.14 Radiculopathy, thoracic region
CPT/HCPCS: 76770; 72072

== ENCOUNTER 2023-09-03 14:36 | Outpatient (CLI) | payer OTHER, SELFPAY ==
[2023-09-03 13:59] LABS: TSH (W/Ref FT4) 1.42 uIU/mL (0.36-3.74)
== END 2023-09-03 14:37 | disposition home or self-care (01) ==
LOC: LBO 14:36
PROVIDERS: PCP Family Medicine; Visit Provider Nurse Practitioner Family
DX: F31.81 Bipolar II disorder (principal); R30.0 Dysuria; R82.89 Other abnormal findings on cytological and histological examination of urine
CPT/HCPCS: 36415; 84443; 87086

== ENCOUNTER 2023-09-10 12:47 | Emergency (ER) | payer OTHER, SELFPAY ==
[2023-09-10] VITALS (24 sets, daily range): BP systolic 150–225; BP diastolic 69–102; PULSE 52–99; RESP 12–39; TEMP 36.9; O2SAT 99
--- NOTE | 2023-09-10 13:15 | DI.CT_ITS ---
Exam(s) CT CHEST/ABD/PEL WO EXAM: CT CHEST/ABD/PEL WO CLINICAL HISTORY: left chest and flank pain, r/o stone TECHNIQUE: Imaging Protocol: Axial computed tomography images with coronal and sagittal reformatted images were created and reviewed COMPARISON: CT ABD PELVIS WO CONTRAST from 10/02/[address] CHEST PE CTA from 09/24/2020 FINDINGS: CHEST: Tracheobronchial tree: Patent where visualized. Pulmonary parenchyma: No consolidation or dominant measurable mass. There is scarring in the left low er lobe. Mediastinum and Shobha: No dominant adenopathy or fluid collection. The esophagus is unremarkable. Post surgical changes seen at the gastroesophageal junction. Thyroid gland: Unremarkable. Pleura: No effusion or pneumothorax. Heart: The heart is not dilated. Mild coronary artery calcification. No pericardial effusion. Aorta: Thoracic aorta non-dilated. Lymph nodes: Within normal limits. Bones:Within normal limits for the patient's age. Soft tissues: Unremarkable. ABDOMEN: Liver: Normal density. No measurable mass. Gallbladder and Biliary Tract: Status post cholecystectomy. No significant biliary ductal dilatation . Pancreas: Normal density, no abnormal calcifications or inflammatory process. Spleen: Normal. Adrenals: No masses seen. Kidneys: Normal size, contour and axis. There is persistent dilatation of the right renal collecting system without obstructing stone. This has a similar appearance to the examination from 2014. No latrell dence of nephrolithiasis. Abdominal Aorta: Abdominal portion non-dilated. Atherosclerosis. Bowel: No obstruction or bowel wall thickening. No evidence of appendicitis. Peritoneal Cavity: No ascites, collection or mesenteric inflammatory response. No free air. Lymph Nodes: Within normal limits. Bones: Within normal limits for the patient's age. Soft Tissues: There is a small fat containing umbilical hernia. There is a small fat containing righ t inguinal hernia. PELVIS: Bladder: Symmetric distention, no gross wall thickening. Reproductive Organs: Unremarkable as visualized. Lymph Nodes: Within normal limits. Bones: Within normal limits for the patient's age. IMPRESSION: 1. No evidence of left nephrolithiasis or hydronephrosis. 2. Stable dilatation of the right renal collecting system which appears chronic. 3. No acute pulmonary process. 4. No acute abdominal or pelvic process. 5. Findings were discussed with Dr. Smith at 4 p.m. on 09/10/2023. RADIATION DOSE DELIVERED: Total DLP Total DLP DATA REPOSITORY: All CT scans at this facility are submitted to the National Radiology Data Registry (NRDR) Dose Index Registry (DIR) with the [employer] ([employer]). RADIATION OPTIMIZATION: All CT scans at this facility use at least one of these dose optimization te chniques: automated exposure control; mA and/or kV adjustment per patient size (includes targeted exa ms where dose is matched to clinical indication); or iterative reconstruction.
[2023-09-10 13:40] LABS: Abs Immature Grans 0.02 10^3/uL (0.0-0.06); Absolute Basophil Count 0.01 10^3/uL (0.0-0.2); Absolute Lymphocyte Count 2.13 10^3/uL (1.2-3.4); Absolute Monocyte Count 0.42 10^3/uL (0.1-0.8); Absolute Neutrophil Count 3.06 10^3/uL (1.2-6.7); Basophils % 0.2; HCT 45.5 % (36.0-46.0); HGB 15.2 g/dL (11.2-15.7); Immature Grans % 0.4; Lymphocytes % 37.8; MCH 31.2 pg (27.0-33.0); MCHC 33.4 % (32.0-36.0); MCV 93 fL (80-95); MPV 9.6 fL (8.0-11.0); Monocytes % 7.4; Neutrophils % 54.2; Platelet Count 211 10^3/uL (130-400); RBC 4.87 10^6/uL (3.93-5.22); RDW 12.2 % (11.7-14.6); RDW-SD 42.1 fL; WBC 5.64 10^3/uL (4.4-10.8)
--- NOTE | 2023-09-10 13:45 | RT.EKG_ITS ---
APPROVED REPORT Exam: Resting ECG Reason for Exam: chest pain Patient Location: E HR:55 bpm ECG Measurements Heart Rate 55 AXIS WV 178 P 73 QRSd 116 QRS 27 QT 440 T 1 QTc 420 Conclusion Sinus bradycardia...rate< 60 Probable left ventricular hypertrophy...(RaVL+SV3)xQRSd >300 Abnormal T, consider ischemia, anterior leads...T <-0.20mV, V2-V4 Physician: No stemi, diffuse t wave inversions but this appears to be relatively unchanged from prior ekg on 09/23/20
[2023-09-10] MEDS: Normal Saline 500 ML IV (13:52)
[2023-09-10] MEDS: Ketorolac 15 MG/ML VIAL IVP (13:52)
[2023-09-10 13:58] LABS: ALT 20 U/L (14-59); AST 14 U/L (15-37); Albumin 4.1 g/dL (3.4-5.0); Alkaline Phosphatase 70 U/L (46-116); Anion Gap 11.9 mmol/L (3-11); BUN 18 mg/dL (7-18); Bilirubin, Total 0.3 mg/dL (0.2-1.0); CO2 24.1 mmol/L (21.0-32.0); CREATININE 1.2 mg/dL (0.55-1.02); Calcium 9.2 mg/dL (8.5-10.1); Chloride 105 mmol/L (98-107); Glucose 105 mg/dL (74-106); Potassium 3.3 mmol/L (3.5-5.1); Sodium 141 mmol/L (136-145); Total Protein 7.6 g/dL (6.4-8.2)
[2023-09-10 14:05] LABS: Bilirubin Negative (Negative); Blood Trace-intact (Negative); Clarity Clear (Clear); Glucose Negative (Negative); Ketones Negative (Negative); Leukocyte Esterase Negative (Negative); Nitrite Negative (Negative); Urobilinogen 0.2 mg/dL (Up to 0.2)
[2023-09-10 14:10] LABS: D-Dimer 315 ng/mlFEU (<500)
[2023-09-10 14:18] LABS: Bacteria Negative HPF (Negative); C & S Indicated? No; Casts Negative LPF (Negative); Crystals Few Calcium Oxalate HPF (Negative); Epithelial Cells Few HPF (Negative); Mucus Negative (Negative); RBC 0-2 HPF (0-2); WBC Negative HPF (0-5)
--- NOTE | 2023-09-10 14:19 | W.ED.GENAD ---
Discharge Plan Disposition Patient Disposition: Home Condition: Good Discharge Details Chief Complaint: FlankPain Clinical Impression: Left flank pain, Chest pain Primary Care Provider: Lisa Munoz V ED Provider: Carl Smith Home Meds and New Rx's Prescriptions: No Action cholecalciferol (vitamin D3) 75 mcg (3,000 unit) tablet 25 mcg PO DAILY diclofenac sodium 1 % gel 2 g topical QID Rx Instructions: apply to single elbow, wrist or hand; for hand includes palm/fingers/back of hand naltrexone 50 mg tablet 50 mg PO DAILY levothyroxine 25 mcg tablet 25 mcg PO DAILY Patient Comments: TK 1 T PO D AN HOUR BEFORE OR AFTER YOU HAVE TAKEN YOUR OTHER MEDICATIONS TAKE FOR HYPOTHYROIDISM benztropine 1 mg tablet 1 mg PO .QHS Patient Comments: TK 1 T PO HS topiramate [Topamax] 50 mg tablet 50 mg PO BID Patient Comments: Take 1 tablet by mouth twice a day take with the 100mg tablet for a total of 150mg twice a day( 300mg/ daily) Vraylar 1.5 mg capsule 1.5 mg PO DAILY Patient Comments: TK ONE C PO ONCE D. TK WITH A 4.5 MG C THAT YOU ALREADY HAVE FOR A TOTAL OF 6 MG PER DAY lithium carbonate 150 mg capsule 300 mg PO HS Patient Comments: TK 1 C PO HS TAKE WITH LITHIUM CARBONATE 300 MG BID acetaminophen [Tylenol] 325 mg Tablet 650 mg PO Q4H PRN PRNQty: 0 0RF Discharge Instructions Instructions: Chest Pain (ED), Flank Pain (ED) Additional Instructions: At this time the CAT scan shows no significant abnormality. There is no signs of kidney stone or urinary tract infection. Your heart blood work shows no evidence of heart attack. You do have a slightly abnormal EKG however this appears to be relatively unchanged from your prior EKGs. That being said with your EKG, your age and your risk factors it is imperative that you follow-up closely with your primary care provider for stress testing. As we discussed together it was our recommendation that you stay overnight for continued monitoring and stress testing. As you have elected to go home, it is imperative that you return immediately if you have any return of your symptoms whatsoever. Please take an 81 mg aspirin daily. Please take an 81 mg aspirin daily. If you notice any worsening of your symptoms, or any new symptoms such as vomiting, diarrhea, fever, chills, shortness of breath, chest pain, numbness, weakness, or fainting , please return immediately to the emergency department for reevaluation. Please follow up with your primary care provider as soon as possible for reassessment and reevaluation. As always, it was a pleasure participating in your medical care today. Referrals: Lisa Munoz MD [Primary Care Provider] - Medical Decision Making 62-year-old female with a past medical history of bipolar disorder, PTSD, hypertension, previous gastric sleeve surgery, presents today for evaluation of left flank pain. Patient states that she has frequent urinary tract infections, 1 week and ago she noticed that her urine was becoming cloudy and smelly. A day or so later she developed left flank pain which is persisted. She has had a few episodes of vomiting, as well as a few episodes of sweats. Patient also noticed that over the last 48 to 72 hours she has developed mild shortness of breath, as well as some mild chest pain. Shortness of breath and chest pain is worse with exertion, improved with rest. However it is always present at baseline. She denies history of cardiac disease or heart attack in the past. She denies any hemoptysis. No recent long trips surgeries or procedures. No other complaints at this time. She denies any hematuria or burning with urination. She denies any history of kidney stones. Exam demonstrates mild CVA tenderness, no abdominal tenderness. Vital signs stable. Mild hypertension. Differential includes UTI, pyelonephritis, kidney stone. However with the patient's exertional chest discomfort, PE and cardiac etiology are certainly on the differential as well. Patient is low risk with Wells score, however with the few risk factors that she does have, I do feel that D-dimer testing is indicated. D-dimer will be ordered. Will gently rehydrate, treat the patient's pain with Toradol, evaluate for concerning etiologies, monitor closely and reassess. 3:27 PM EKG demonstrates diffuse T wave inversion, however no evidence of STEMI. Upon review of prior EKG though this appears to be chronic rather than acute. D-dimer negative. PE clinically ruled out. Still pending CT imaging and reassessment. 4:[address] scan has returned, no evidence of acute process in the chest abdomen or pelvis. Chronic right-sided dilatation of the ureter, unchanged. Urinalysis shows no evidence of UTI, or significant hematuria. No white count. No bandemia or left shift. Creatinine stable. Potassium minimally low at 3.3. Initial troponin normal. Patient was given 2 nitroglycerin, initially she had no improvement, but eventually the pain resolved on its own in her chest. I discussed her risk factors, her symptomatology, and her findings. I discussed admission for stress testing and continued observation. I did discuss with the patient admission/observation to the hospital , and at this time through notable discussion, weighing the risks and benefits, utilizing a shared decision making process, and with a very clear discussion on the benefit of admission and the risks associated with discharge including the unlikely but potential worst case scenario of or lifelong disability the patient has refused admission and would like to go home. Patient is of a appropriate age to make decisions. The patient is of sound mind, appears clinically sober, and has capacity to make decisions by my clinical exam. I did attempt to discuss barriers that were keeping her from admission, and she simply felt that it was very important that she go home and not stay here overnight. She assured me that she would follow-up closely with her primary care provider and call them tomorrow. She also states that she will return promptly if her symptoms return whatsoever. I discussed the potential risk of going home without continued observation or inpatient stress testing and she understands this, including the worst case scenario being or heart attack. Repeat troponin is normal. Patient will be discharged. I have extensively reviewed the treatment plan and discharge instructions with the patient. I have addressed all patient concerns at this time. The patient was made aware of what symptoms to monitor for that would warrant a return to the emergency department. Discussed the plan with the patient, they demonstrate verbal understanding and agreement with our assessment and plan at this time. The documentation in this chart was dictated using [employer] dictation software. Please excuse any dictation errors. HPI General Date/Time Provider Initiated Documentation: 09/10/23 12:49. HPI Narrative: 62-year-old female with a past medical history of bipolar disorder, PTSD, hypertension, previous gastric sleeve surgery, presents today for evaluation of left flank pain. Patient states that she has frequent urinary tract infections, 1 week and ago she noticed that her urine was becoming cloudy and smelly. A day or so later she developed left flank pain which is persisted. She has had a few episodes of vomiting, as well as a few episodes of sweats. Patient also noticed that over the last 48 to 72 hours she has developed mild shortness of breath, as well as some mild chest pain. Shortness of breath and chest pain is worse with exertion, improved with rest. However it is always present at baseline. She denies history of cardiac disease or heart attack in the past. She denies any hemoptysis. No recent long trips surgeries or procedures. No other complaints at this time. She denies any hematuria or burning with urination. She denies any history of kidney stones. Related Data Home Medications Medication Instructions Recorded Confirmed benztropine 1 mg tablet 1 mg PO .QHS 09/23/20 09/10/23 levothyroxine 25 mcg tablet 25 mcg PO DAILY 09/23/20 09/10/23 acetaminophen 325 mg tablet 650 mg (2 x 325 mg) PO Q4H PRN PRN 09/24/20 09/10/23 (Tylenol) #0 tabs cariprazine 1.5 mg capsule 1.5 mg PO DAILY 09/24/20 09/10/23 (Vraylar) lithium carbonate 150 mg capsule 300 mg PO HS 09/24/20 09/10/23 topiramate 50 mg tablet (Topamax) 50 mg PO BID 09/24/20 09/10/23 cholecalciferol (vitamin D3) 75 25 mcg PO DAILY 04/11/21 09/10/23 mcg (3,000 unit) tablet diclofenac sodium 1 % topical gel 2 g topical QID 04/11/21 09/10/23 naltrexone 50 mg tablet 50 mg PO DAILY 04/11/21 09/10/23 Previous Rx's Medication Instructions Recorded acetaminophen 325 mg tablet 650 mg (2 x 325 mg) PO Q4H PRN PRN 09/24/20 (Tylenol) #0 tabs Allergies Allergy/AdvReac Type Severity Reaction Status Date / Time ampicillin Allergy Intermediate HIVES HEAD Unverified 09/23/20 12:38 TO TOE, ITCHING aripiprazole [From Abilify] AdvReac Intermediate made worse Unverified 09/23/20 12:38 bupropion HCl AdvReac Intermediate paranoia Unverified 09/23/20 12:38 [From Wellbutrin] fluoxetine HCl [From Prozac] AdvReac Intermediate increased Unverified 09/23/20 12:38 mood cycling General Stated Complaint: FlankPain HA: 3 Review of Systems All systems reviewed & are unremarkable except as noted in HPI and below PFSH All Active Problems (Updated 09/10/23 @ 16:17 by Carl Smith DO) Chest pain (Acute) Left flank pain (Acute) Abnormal chest CT (Acute) COVID-19 long hauler (Acute) [id number] kidney injury (Acute) Bradycardia (Acute) Chest pain (Acute) COVID-19 (Acute) Colorectal polyps (Acute) Fatigue (Acute) Unintentional weight loss (Acute) Elevated serum creatinine (Acute) Abdominal pain (Acute) S/P colonoscopy (Acute) 2016- Polyps Chronic headaches (Acute) PTSD (post-traumatic stress disorder) (Acute) Medical History History of depression Obesity Bipolar 2 disorder ADD (attention deficit disorder) Allergic rhinitis Sinusitis Abdominal pain in female Creatinine elevation Shoulder pain Medication monitoring encounter Bursitis of elbow Toe pain Skin mole Cough COVID-19 virus infection Confusion Elevated blood pressure reading without diagnosis of hypertension Knee pain, left Anserine bursitis Trochanteric bursitis Dyspnea on exertion Sleep disturbances Transient global amnesia Loss of balance Tremor Memory impairment Hypothyroidism Urinary disorder Cataract Tubular adenoma of colon Obsessive-compulsive disorder Hyperlipidemia Headache Bipolar disorder Benign hypertension ADD Surgical History H/O bariatric surgery History of cataract surgery Family History Mother Heart disease Hyperlipidemia Mental disorder Father Hyperlipidemia Mental disorder Grandmother Personal history of malignant neoplasm Mental disorder aunt Personal history of malignant neoplasm Social History Smoking/Tobacco Use Status: Never Smoking risk assessment performed?: Yes Alcohol Intake: current Alcohol Intake frequency: a few times a month Alcohol type: hard liquor Drug use: Never Substance use type: does not use Housing: house Current gender identity: female Do you feel safe at home: Yes Do you feel safe in your relationship?: Yes Exam Narrative Exam Narrative: 1.Const: Well-nourished, Well-developed, appearing stated age 2.Eyes: PERRL, no conjunctival injection, and symmetrical lids. 3.ENT: Atraumatic external nose and ears. Moist MM. Neck: Symmetric, trachea midline, No thyromegaly. 4.CVS: +S1/S2, No murmurs or gallops. Peripheral pulses 2+ and equal in all extremities. Brisk capillary refill in all extremities. 5.RESP: Unlabored respiratory effort. Clear to auscultation bilaterally. No wheezes rales or rhonchi 6.GI: Soft, Nontender/Nondistended, No hepatosplenomegaly. No guarding or rebound. Mild left-sided CVA tenderness on percussion. 7.MSK: Normocephalic/Atraumatic, Extremities w/o deformity or ttp No cyanosis or clubbing, Normal movement of all extremities 8.Skin: Warm, Dry. No rashes or lesions. 9.Neuro: napkin band wrapper II-XII grossly intact. Sensation grossly intact, no focal neurologic deficits. 10.Psych: (AAO) x3. Appropriate mood and affect Course Vital Signs Vital signs: Vital Signs Temperature 36.9 C 09/10/23 12:55 Pulse 99 H 09/10/23 12:55 Respiratory Rate 16 09/10/23 12:55 Blood Pressure 160/96 H 09/10/23 12:55 Pulse Oximetry 99 09/10/23 12:55 Temperature 36.9 C 09/10/23 12:55 Temperature Source Oral 09/10/23 12:55 Pulse 99 H 09/10/23 12:55 Respiratory Rate 16 09/10/23 12:55 Respiratory Effort Normal 09/10/23 13:11 Blood Pressure 160/96 H 09/10/23 12:55 Pulse Oximetry 99 09/10/23 12:55 Oxygen Delivery Method Room Air 09/10/23 12:55 Oxygen Flow Rate 0 09/10/23 12:55 Pain Level 7 09/10/23 13:52 Lab/Test Results Lab/Test Results: Laboratory Tests Range/Units 09/10/23 09/10/23 13:25 13:45 WBC (4.4-10.8) 10^3/uL 5.64 RBC (3.93-5.22) 10^6/uL 4.87 Hgb (11.2-15.7) g/dL 15.2 Hct (36.0-46.0) % 45.5 MCV (80-95) fL 93 MCH (27.0-33.0) pg 31.2 MCHC (32.0-36.0) % 33.4 RDW (11.7-14.6) % 12.2 Plt Count (130-400) 10^3/uL 211 MPV (8.0-11.0) fL 9.6 Immature Gran % 0.4 Neutrophils % 54.2 Lymphocytes % 37.8 Monocytes % 7.4 Eosinophils % 0.0 Basophils % 0.2 Nucleated RBC % (0.0-0.3) % 0.0 Absolute Neutrophils (1.2-6.7) 10^3/uL 3.06 Absolute Lymphocytes (1.2-3.4) 10^3/uL 2.13 Absolute Monocytes (0.1-0.8) 10^3/uL 0.42 Absolute Eosinophils (0.0-0.7) 10^3/uL 0.00 Absolute Basophils (0.0-0.2) 10^3/uL 0.01 D-Dimer (<500) ng/mlFEU 315 Sodium (136-145) mmol/L 141 Potassium (3.5-5.1) mmol/L 3.3 L Chloride (98-107) mmol/L 105 Carbon Dioxide (21.0-32.0) mmol/L 24.1 Anion Gap (3-11) mmol/L 11.9 H BUN (7-18) mg/dL 18 Creatinine (0.55-1.02) mg/dL 1.2 H Est GFR (CKD-EPI 2020) (mL/min/1.73m2) 51.50 Glucose (74-106) mg/dL 105 Calcium (8.5-10.1) mg/dL 9.2 Total Bilirubin (0.2-1.0) mg/dL 0.3 AST (15-37) U/L 14 L ALT (14-59) U/L 20 Alkaline Phosphatase (46-116) U/L 70 Total Protein (6.4-8.2) g/dL 7.6 Albumin (3.4-5.0) g/dL 4.1 Urine Color (Yellow) Yellow Urine Clarity (Clear) Clear Urine pH (5-8) 6.0 Ur Specific [place] (1.005-1.025) 1.020 Urine Protein (Negative) mg/dL Negative Urine Ketones (Negative) mg/dL Negative Urine Blood (Negative) Trace-intact H Urine Nitrite (Negative) Negative Urine Bilirubin (Negative) Negative Urine Urobilinogen (Up to 0.2) mg/dL 0.2 Ur Leukocyte Esterase (Negative) Negative Urine RBC (0-2) HPF 0-2 Urine WBC (0-5) HPF Negative Ur Epithelial Cells (Negative) HPF Few Urine Crystals (Negative) HPF Few Calcium Oxalate Urine Bacteria (Negative) HPF Negative Urine Casts (Negative) LPF Negative Urine Mucus (Negative) Negative Ur Culture Indicated? No Urine Glucose (Negative) mg/dL Negative
[2023-09-10] MEDS: nitroGLYcerin 0.4 MG TAB SL ×2 (15:12→15:40)
[2023-09-10] MEDS: Aspirin 325 MG TAB PO (15:40)
[2023-09-10 16:08] LABS: Troponin I < 50 ng/L (<or=60)
[2023-09-10 16:12] LABS: Troponin I < 50 ng/L (<or=60)
--- NOTE | 2023-09-15 14:03 | NUR.NOTE ---
Patient called asking about getting stress testing. She thought that we were to be ordering it. After checking the provider note it stated for her to see her PCP for the stress testing. I called her and relayed this. Nursing Note:
== END 2023-09-10 16:26 | disposition home or self-care (01) ==
PROVIDERS: Emergency Provider Student in an Organized Health Care Education/Training Program; PCP Family Medicine
DX: R10.9 Unspecified abdominal pain (principal); R07.9 Chest pain, unspecified; I10 Essential (primary) hypertension; R06.02 Shortness of breath; Z87.440 Personal history of urinary (tract) infections; Z98.84 Bariatric surgery status; E78.5 Hyperlipidemia, unspecified; Z79.899 Other long term (current) drug therapy
CPT/HCPCS: 71250; 80053; 93005; 96374; 99285; 74176; 81003; 81015; 84484; 85025; 85379; 93010; J1885

== ENCOUNTER 2023-09-19 03:26 | Outpatient (CLI) | payer OTHER, SELFPAY ==
[2023-09-19 11:16] LABS: Lithium 0.4 mmol/l (0.6-1.2)
[2023-09-19 11:30] LABS: ALT 15 U/L (14-59); AST 12 U/L (15-37); Albumin 3.8 g/dL (3.4-5.0); Alkaline Phosphatase 62 U/L (46-116); Anion Gap 7.5 mmol/L (3-11); BUN 16 mg/dL (7-18); Bilirubin, Total 0.4 mg/dL (0.2-1.0); CO2 25.5 mmol/L (21.0-32.0); CREATININE 1.3 mg/dL (0.55-1.02); Calcium 9.3 mg/dL (8.5-10.1); Chloride 109 mmol/L (98-107); Estimated GFR 46.78 (mL/min/1.73m2); Glucose 111 mg/dL (74-106); Potassium 3.8 mmol/L (3.5-5.1); Sodium 142 mmol/L (136-145); TSH (W/Ref FT4) 1.18 uIU/mL (0.36-3.74)
== END 2023-09-19 03:27 | disposition home or self-care (01) ==
LOC: LBO 03:26
PROVIDERS: PCP Family Medicine; Visit Provider Nurse Practitioner Family
DX: Z51.81 Encounter for therapeutic drug level monitoring (principal)
CPT/HCPCS: 36415; 80053; 80178; 84443

== ENCOUNTER → 2023-10-14 00:05 | Outpatient (CLI) | payer OTHER, SELFPAY ==
--- NOTE | 2023-10-14 | DI.NM_ITS ---
APPROVED REPORT Exam: Pharmacologic Patient Location: Out-Patient Room/Bed: Stress Nurse: Alecia Quinn RN Ordering Provider:JAIME MEJIA, Contact Number: BMI: 34.89 Baseline Rhythm: Sinus Bradycardia Indications: Chest pain, Medical History Medical History: Depression, obesity, bipolar disorder, MARRERO, hypothyroidism, ADD, HLD, PTSD Cardiac Medications: Vitamin D3, levothyroxine, lithium carbonate, topiramate Allergies: Ampicillin, abilify, wellbutrin, prozac Cardiac Risk Factors: Family hx, HLD, obesity Previous Cardiac Procedures: None Pretest Chest Pain Characteristics: None Exercise History: Sedentary Physical Disabilities: None Lung Sounds: Clear to auscultation Heart Sounds: Regular Stress Test Details Test: Pharmacologic stress was paired with low level exercise. Reason for pharmacologic stress test: changed from exercise stress test due to inability to reach t arget heart rate. Nuclear Acquisition: Rest Tc-99m/Stress Tc-99m 1 day Rest Isotope: Tc-99m Sestamibi. Dose: 10.0 Date: 10/14/2023 Injection Time: 0900 Stress Isotope: Tc-99m Sestamibi. Dose: 30.0 Date: 10/14/2023 Injection Time: 1030 HR Resting HR Supine: 59 bpm Max Heart Rate (APMHR): 159 bpm Resting HR Standin bpm Target HR (85% APMHR): 135 bpm Max HR Achieved: 121 bpm % of APMHR: 76 Recovery HR: 67 bpm HR response to stress: Blunted HR response to stress BP Resting BP Supine: 188/82 mmHg Resting BP Standin/92 mmHg Max BP: 194/92 mmHg Recovery BP: 142/70 mmHg BP response to stress: Normal blood pressure response to stress. ECG Resting ECG: Sinus Bradycardia Ectopy: None Stress ECG: Sinus Tachycardia ST Change: Nondiagnostic low heart rate Arrhythmia: None Recovery ECG: Sinus Rhythm Recovery ST Change: Nondiagnostic low heart rate Recovery Arrhythmia: None Clinical Reason for Termination: Fatigue Stress Symptoms: General Fatigue, Dizziness, Dyspnea Angina Score: None Rate Pressure Product: [id number] Stress ECG Conclusion 1. Normal clinical, ECG and BP responses. 2. Nuclear findings are reported separatrely Stress Test Summary STAGE Time (mins) Speed (mph) Grade (%) HR BP SpO2 SYMPTOMS METS Supine 59 188/82 99 Standing 60 194/92 1 3 1.7 10 117 194/88 4.5 1 min post Lexiscan injection 94 172/68 3 min post Lexiscan injection 77 144/62 6 min post Lexiscan injection 67 142/70 99 Patient transitioned to laying judy due to dizziness, moderate SOB and general fatigue. MPI Conclusion Normal myocardial perfusion, no ischemia or infarct Normal LV function, no wall motion abnormality, EF 66%.
[2023-10-14] MEDS: Regadenoson 0.4 MG/5 ML SYR IVP (10:39)
== END ==
PROVIDERS: PCP Family Medicine; Visit Provider Family Medicine
DX: R07.9 Chest pain, unspecified (principal)
CPT/HCPCS: 78452; 93017; J2785

== ENCOUNTER 2023-10-23 08:56 | Outpatient (CLI) | payer OTHER, SELFPAY ==
--- NOTE | 2023-11-20 14:53 | ZIOP_ITS ---
Date of service: 11/20/23 Time of Service: 14:54 14 Day Line Ordering Clinician Referring Provider:: Yamil Indications:: Syncope and collapse Note: This was a 14-day monitor done for syncope and collapse 1. The underlying rhythm is sinus with paroxysms of atrial fibrillation/flutter. Minimum heart rate was 44 and maximum heart rate was 179 bpm average 73 bpm 2. Paroxysms of atrial fibrillation/flutter with rapid ventricular response wit h a burden of 9%. 3. 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 No pauses of more than 3 seconds
== END 2023-10-23 08:57 | disposition home or self-care (01) ==
PROVIDERS: PCP Family Medicine; Visit Provider Family Medicine
DX: R00.1 Bradycardia, unspecified (principal); R42 Dizziness and giddiness
CPT/HCPCS: 93270

== ENCOUNTER 2023-10-24 04:34 | Outpatient (CLI) | payer OTHER, SELFPAY ==
[2023-10-24 14:11] LABS: Anion Gap 6.9 mmol/L (3-11); BUN 20 mg/dL (7-18); CO2 26.1 mmol/L (21.0-32.0); CREATININE 1.3 mg/dL (0.55-1.02); Chloride 110 mmol/L (98-107); Estimated GFR 46.49 (mL/min/1.73m2); Glucose 123 mg/dL (74-106); Potassium 3.5 mmol/L (3.5-5.1); Sodium 143 mmol/L (136-145)
[2023-10-24 14:43] LABS: Lithium 0.5 mmol/l (0.6-1.2)
== END 2023-10-24 04:35 | disposition home or self-care (01) ==
LOC: LBO 04:34
PROVIDERS: PCP Family Medicine; Visit Provider Nurse Practitioner Family
DX: Z51.81 Encounter for therapeutic drug level monitoring (principal)
CPT/HCPCS: 36415; 80048; 80178

== ENCOUNTER 2023-11-25 11:16 | Outpatient (CLI) | payer OTHER, SELFPAY ==
--- NOTE | 2023-11-25 13:21 | W.CARDEVENT ---
Date of service: 11/25/23 Time of Service: 13:21 Cardiac Event Recorder Referring Provider:: Lisa Munoz Indications:: Bradycardia, dizziness Cardiac Event Note: This is a cardiac event monitor ordered for bradycardia and dizziness Patient was monitored for 29 days and 3 hours Rhythm throughout was sinus. Average heart rate was 55. Minimum was 50, maximum 107 There were no supraventricular dysrhythmias, no atrial fibrillation, no pauses greater than 3 seconds Two isolated PVCs were seen Multiple patient symptoms were reported all of which corresponded with either mild sinus bradycardia or sinus rhythm
== END 2023-11-25 11:17 | disposition home or self-care (01) ==
LOC: CARDOPNVT 11:16
PROVIDERS: PCP Family Medicine; Visit Provider Internal Medicine Cardiovascular Disease
DX: R00.1 Bradycardia, unspecified (principal); R42 Dizziness and giddiness

== ENCOUNTER 2023-12-09 17:47 | Outpatient (REF) | payer OTHER, SELFPAY ==
[2023-12-09 16:16] LABS: Anion Gap 10.8 mmol/L (3-11); BUN 16 mg/dL (7-18); CO2 25.2 mmol/L (21.0-32.0); CREATININE 1.1 mg/dL (0.55-1.02); Calcium 9.1 mg/dL (8.5-10.1); Chloride 107 mmol/L (98-107); Estimated GFR 56.81 (mL/min/1.73m2); Glucose 98 mg/dL (74-106); Sodium 143 mmol/L (136-145); TSH (W/Ref FT4) 2.16 uIU/mL (0.36-3.74)
[2023-12-09 18:27] LABS: Lithium 0.6 mmol/l (0.6-1.2)
== END 2023-12-09 17:48 | disposition home or self-care (01) ==
LOC: LBN 17:47
PROVIDERS: PCP Family Medicine; Visit Provider Nurse Practitioner Family
DX: F31.81 Bipolar II disorder (principal); Z51.81 Encounter for therapeutic drug level monitoring; Z79.899 Other long term (current) drug therapy
CPT/HCPCS: 80048; 80178; 84443

== ENCOUNTER → 2023-12-18 01:05 | Outpatient (CLI) | payer OTHER, SELFPAY ==
--- NOTE | 2023-12-18 08:30 | DI.MAMMO_ITS ---
Exam(s) MAMMO SCREENING EXAM: MAMMO SCREENING CLINICAL HISTORY: SCREENING, Z12.31. TECHNIQUE: Bilateral full field digital CC and MLO mammographic images were obtained with 3D tomosyn thesis and utilizing computer aided detection (CAD). COMPARISON: Prior mammograms were reviewed. FINDINGS: There has been no significant change in the appearance and distribution of the fibroglandular tissue. Inferior right breast skin mole again noted. There are no new spiculated masses nor malignant appearing microcalcification groups. There is no significant architectural distortion nor skin thickening-retraction. IMPRESSION: No radiographic evidence of malignancy. BI-RADS Category 2 - Benign Findings Breast Density - Category B - Scattered areas of fibroglandular density Breast density Category C or D implies that the patient has dense breast tissue. Dense breast tissue can make it harder to find cancer on a mammogram. Dense breast tissue is also associated with an incr eased risk of breast cancer. This information about the result of the mammogram report was provided to the patient to raise their awareness. Use this report when you speak with the patient about their risks for breast cancer, which includes their family history. At that time, you may recommend additional screening tests (Ultrasoun d or MRI) as these tests may add significant information. A negative radiographic report should not delay biopsy if a dominant or clinically suspicious mass is present. Up to ten percent of cancers are not identified on mammography. A negative report may reinforce clinical impression. Adenosis and dense breasts may obscure an underlying neoplasm. False positive reports average 6 to 10%. Patient will receive a letter notifying them of these results.
== END ==
PROVIDERS: PCP Family Medicine; Visit Provider Family Medicine
DX: Z12.31 Encounter for screening mammogram for malignant neoplasm of breast (principal)
CPT/HCPCS: 77063; 77067

== ENCOUNTER 2023-12-26 16:51 | Outpatient (REF) | payer OTHER, SELFPAY ==
[2023-12-26 19:02] LABS: Anion Gap 10.6 mmol/L (3-11); BUN 29 mg/dL (7-18); CO2 25.4 mmol/L (21.0-32.0); CREATININE 1.3 mg/dL (0.55-1.02); Calcium 9.4 mg/dL (8.5-10.1); Chloride 107 mmol/L (98-107); Estimated GFR 46.49 (mL/min/1.73m2); Glucose 102 mg/dL (74-106); Potassium 3.9 mmol/L (3.5-5.1); Sodium 143 mmol/L (136-145)
== END 2023-12-26 16:52 | disposition home or self-care (01) ==
LOC: NCHCN 16:51
PROVIDERS: PCP Family Medicine; Referring Provider Family Medicine; Visit Provider Family Medicine
DX: I10 Essential (primary) hypertension (principal)
CPT/HCPCS: 80048; 82533

== ENCOUNTER → 2024-01-14 01:15 | Outpatient (CLI) | payer OTHER, SELFPAY ==
--- NOTE | 2024-01-14 07:30 | DI.US_ITS ---
APPROVED REPORT EXAM: Comprehensive 2D, Doppler, and color-flow Echocardiogram Patient Location: Out-Patient Bird Cage Assembler: Shamika Russell RDCS (AE) Indications: Cardiac murmur, unspecified Other Information Study Quality: Adequate Conclusion Normal left ventricular wall thickness and chamber size. EF is 60-65%. Wall motion is normal Normal right ventricular size and function Both atria are normal in size Trileaflet aortic valve with mild regurgitation Normal mitral valve with trace to mild regurgitation Wall motion Left Ventricle The left ventricle is normal size. The left ventricular systolic function is normal. The left ventric ular ejection fraction is within the normal range. There is normal left ventricular wall thickness. T here is normal LV segmental wall motion. There is no ventricular septal defect visualized. LVEF is 60 -65%. Right Ventricle The right ventricle is normal size. The right ventricular systolic function is normal. Atria The left atrium size is normal. The right atrium size is normal. The interatrial septum is intact wit h no evidence for an atrial septal defect. Aortic Valve The aortic valve is normal in structure. Aortic valve is trileaflet. There is no aortic valvular sten osis. Mild aortic regurgitation. Mitral Valve The mitral valve is normal in structure. No evidence of mitral valve stenosis. Trace to mild mitral regurgitation. Tricuspid Valve The tricuspid valve is normal in structure. There is no tricuspid valve stenosis. Trace tricuspid reg urgitation. Unable to assess PA pressure. Pulmonic Valve The pulmonary valve is normal in structure. There is no pulmonic valvular stenosis. Trace pulmonic re gurgitation. Great Vessels The aortic root is normal in size. The ascending aorta is normal Aortic arch is not well visualized. IVC is normal in size and collapses >50% with inspiration. Pericardium There is no pericardial effusion. 2D Dimensions IVSD d PLAX 1.01 cm F: 0.6-1.0 Ao Root d 2.45 cm F: 2.7 - 3.3 LVPW d PLAX 1.00 cm F: 0.6 - 1.0 Ao Asc Diam d 3.38 cm F: 2.3 - 3.1 LVID d PLAX 5.05 cm F: 3.8 - 5.2 LVDs 3.26 cm F: 2.2 - 3.5 LV EF Teichholz 64.5 % FS 35.39 % LV EDV (Teich) 121.0 mL LV ESV (Teich) 42.9 mL M-Mode TAPSE 3.36 cm (M/F) >1.7 Auto EF LV EDV A4C 142.0 mL LV EDV A2C 165.6 mL LV EDV BP 153.0 mL LV ESV A4C 49.1 mL LV ESV A2C 61.9 mL LV ESV BP 55.1 mL LVEF(%) A4C 65.4 % LVEF(%) A2C 62.6 % LVEF(%) BP 64.0 % LV SV A4C 92.9 ml LV SV A2C 103.7 ml LV SV BP 97.9 ml LV CO A4C 4.3 L/min LV CO A2C 5.0 L/min LV CO BP 4.7 L/min HR A4C 46.45 BPM HR A2C 48.44 BPM LV EDV Index (BP) LA Volume LA Length A4C 5.5 cm LA Length A2C 6.0 cm LA Area A4C s 16.80 cm2 LA Area A2C s 19.50 cm2 LA Vol A4C A-L 43.73 mL LA Vol A2C A-L 54.13 mL LA Vol Biplane A-L 50.7 mL LA Vol/BSA A4C A-L LA Vol/BSA A2C A-L LA Vol/BSA BP A-L 25.5 mL/m2 LA Vol A4C MOD 40.9 mL LA Vol A2C MOD 51.5 mL LA Vol BP MOD 47.8 mL RA Volume RA Area A4C 14.2 cm2 RA ESV A4C (A-L) 36.7mL RA Vol/BSA A4C A-L RA Length A4C 4.7 cm RA ESV A4C (MOD) 33.8mL LV Diastology MV E' medial 0.082 (>0.07 m/s) MV E Vmax 0.95 (0.4-1.3 m/s) MV E/E' MED 11.53 (<14) MV A Vmax 0.95 (0.4-1.3 m/s) MV E' lateral 0.133 (>0.1 m/s) E/A Ratio 1.0 MV E/E' LAT 7.13 (<14) MV E' Average 0.108 m/s MV E/E'(average) 8.81 Aortic Valve AoV Vmax 2.10 m/s LVOT Vmax 1.47 m/s AoV Peak Grad 51.1 mmHg LVOT Peak Grad 8.6 mmHg AoV Area (Vmax) 2.08 cm2 LVOT VTI 0.324 m AoV VTI 0.482 m LVOT Mean Grad 4.9 mmHg AoV Mean Jostin. 1.39 m/s LVOT SV 96.13 mL AoV Mean Grad 9.1 mmHg LVOT Diam s 1.90 cm AoV Area (VTI) 1.99 cm2 AV Regurg Peak Gr. 84.45 mmHg Velocity Ratio 0.70 AR Decel Sawyer 1.6m/sec2 AR DT 2865 msec AR PHT 831 msec AR Vmax 4.60 m/s Mitral Valve MV DT 147 (160-240 msec) MV Vmax TIPS 1.01 m/s MV Mean Grad 1.9 (<2mmHg) MV VTI 0.426 m Pulmonary Valve PV Vmax 1.55 (0.5-1.5 m/s) RVOT Vmax 0.91 m/s PV Peak Grad 9.6 mmHg RVOT Peak Gr. 3.3 mmHg PV Mean Jostin 0.97 m/s RVOT VTI 0.221 m PV Mean Grad 4.3 mmHg RVOT Mean Gr. 1.9 mmHg Tricuspid Valve RA Pressure 3.00 mmHg TV S' 0.17 m/s
== END ==
PROVIDERS: PCP Family Medicine; Visit Provider Family Medicine
DX: R01.1 Cardiac murmur, unspecified (principal)
CPT/HCPCS: 93306

== ENCOUNTER 2024-01-15 19:07 | Outpatient (REF) | payer OTHER, SELFPAY ==
[2024-01-15 19:19] LABS: Anion Gap 10.4 mmol/L (3-11); BUN 27 mg/dL (7-18); CO2 26.6 mmol/L (21.0-32.0); CREATININE 1.5 mg/dL (0.55-1.02); Calcium 8.9 mg/dL (8.5-10.1); Chloride 106 mmol/L (98-107); Estimated GFR 39.16 (mL/min/1.73m2); Glucose 107 mg/dL (74-106); Potassium 3.6 mmol/L (3.5-5.1); Sodium 143 mmol/L (136-145)
== END 2024-01-15 19:08 | disposition home or self-care (01) ==
LOC: NCHCN 19:07
PROVIDERS: PCP Family Medicine; Visit Provider Family Medicine
DX: I10 Essential (primary) hypertension (principal); Z51.81 Encounter for therapeutic drug level monitoring
CPT/HCPCS: 80048

== ENCOUNTER 2024-02-26 13:28 | Outpatient (REF) | payer OTHER, SELFPAY ==
[2024-02-26 16:23] LABS: HCT 45.5 % (36.0-46.0); HGB 15.2 g/dL (11.2-15.7); MCH 32.4 pg (27.0-33.0); MCHC 33.4 % (32.0-36.0); MCV 97 fL (80-95); MPV 10.4 fL (8.0-11.0); Platelet Count 212 10^3/uL (130-400); RBC 4.69 10^6/uL (3.93-5.22); RDW 12.3 % (11.7-14.6); RDW-SD 43.6 fL; WBC 5.78 10^3/uL (4.4-10.8)
[2024-02-26 16:38] LABS: Lithium 0.8 mmol/L (0.6-1.2)
[2024-02-26 16:51] LABS: ALT 21 U/L (14-59); AST 9 U/L (15-37); Albumin 4.1 g/dL (3.4-5.0); Alkaline Phosphatase 61 U/L (46-116); Anion Gap 10.3 mmol/L (3-11); BUN 29 mg/dL (7-18); Bilirubin, Total 0.4 mg/dL (0.2-1.0); CO2 26.7 mmol/L (21.0-32.0); CREATININE 1.3 mg/dL (0.55-1.02); Calcium 9.4 mg/dL (8.5-10.1); Chloride 105 mmol/L (98-107); Estimated GFR 46.49 (mL/min/1.73m2); Glucose 102 mg/dL (74-106); Potassium 3.7 mmol/L (3.5-5.1); Sodium 142 mmol/L (136-145); TSH (W/Ref FT4) 1.84 uIU/mL (0.36-3.74); Total Protein 7.1 g/dL (6.4-8.2)
== END 2024-02-26 13:29 | disposition home or self-care (01) ==
LOC: NCHCN 13:28
PROVIDERS: Nurse Practitioner Family; PCP Family Medicine; Visit Provider Family Medicine
DX: Z51.81 Encounter for therapeutic drug level monitoring (principal); Z86.79 Personal history of other diseases of the circulatory system
CPT/HCPCS: 80053; 85027; 80178; 84443

== ENCOUNTER 2024-04-09 10:28 | Day surgery (SDC) | payer OTHER, SELFPAY ==
--- NOTE | 2024-04-08 20:37 | W.PM.DSUDISC ---
Date of service: 04/09/24 Time of Service: 13:22 Discharge Plan Disposition Patient Disposition: Home Condition: Good Discharge Details Reason For Visit: screening colonoscopy Attending Provider: Joe Vera Primary Care Provider: Lisa Munoz V Home Meds and New Rx's Prescriptions: Continued lisdexamfetamine [Vyvanse] 30 mg capsule 30 mg PO DAILY cholecalciferol (vitamin D3) 75 mcg (3,000 unit) tablet 25 mcg PO DAILY aspirin [Adult Aspirin Regimen] 81 mg tablet,delayed release (DR/EC) 81 mg PO DAILY Caplyta 42 mg capsule 42 mg PO DAILY levothyroxine 25 mcg tablet 50 mcg PO DAILY Patient Comments: TK 1 T PO D AN HOUR BEFORE OR AFTER YOU HAVE TAKEN YOUR OTHER MEDICATIONS TAKE FOR HYPOTHYROIDISM clonidine HCl 0.1 mg tablet 0.1 mg PO BID Rx Instructions: take 1 tablet twice a day by oral route for 28 days chlorthalidone 25 mg tablet 25 mg PO DAILY omeprazole 40 mg capsule,delayed release(DR/EC) 40 mg PO DAILY Rx Instructions: TAKE 1 CAPSULE BY MOUTH EVERY OTHER MORNING 30 MINUTES BEFORE A MEAL levomefolate calcium [L-Methylfolate] 15 mg tablet 15 mg PO DAILY lithium carbonate 450 mg tablet extended release 450 mg PO DAILY losartan 100 mg tablet 100 mg PO DAILY nitroglycerin 0.4 mg tablet, sublingual 0.4 mg sublingual Q5M PRN Rx Instructions: do not exceed 3 doses per episode rosuvastatin 5 mg tablet 5 mg PO DAILY lamotrigine 200 mg tablet 200 mg PO DAILY acetaminophen [Tylenol] 325 mg Tablet 650 mg PO Q4H PRN PRNQty: 0 0RF Discontinued bisacodyl [Dulcolax (bisacodyl)] 5 mg tablet,delayed release (DR/EC) 5 mg PO ONCE Qty: 4 0RF Rx Instructions: Take per colonoscopy instructions provided by ordering providers office polyethylene glycol 3350 17 gram/dose powder 17 g PO ONCE Qty: 238 0RF Rx Instructions: Take per colonoscopy instructions provided by ordering providers office Discharge Instructions Instructions: Colon polyps Additional Instructions: Telma, we were able to complete your colonoscopy today. I did find 5 polyps today, which I attempted to remove. 2 of these polyps have slightly challenging shapes with regards to colonoscopic removal. With regards to those 2, I was certainly able to obtain adequate specimens for the pathologist to analyze. To be safe, however, I do think repeating her colonoscopy at 1 year, regardless of the type of polyp, in order to ensure complete resection is probably the safest plan. Especially since some of the polyps that you had removed previously have a relatively strong association with the development of colon cancer. Everything that I took out today will be sent off for testing, which usually takes about a week or two. Once I have those results, I will certainly let you know. There is nothing else special that you need to do in the meantime. If you have any questions at all, please do not be afraid to let me know. 1. If tolerated, consume a soft, low fiber diet for 1-2 days. 2[address] Do not drive, drink alcohol, operate machinery, make critical decisions, or do activities that require coordination or balance for 24 hours. 3. Because air was put into your colon during the procedure, expelling air from your rectum (passing gas or farting) is normal. 4. You may not have a bowel movement for 1-3 days because of the colonoscopy prep. This is normal. 5. Go directly to the emergency room if you notice any of the following: Develop chills (warm to touch), or if you have a thermometer and your temperature is above 101 Difficulty breathing or difficultly swallowing Persistent vomiting Severe abdominal pain, other than gas cramps Severe chest pain Black, tarry stools Any bleeding ? exceeding one tablespoon 6. Call your physician if the site where your intravenous was started becomes red, swollen, painful, and warm to touch. 7. Your physician has reviewed your pre-procedure medications. Please continue to take those medications as previously ordered. You will be given specific information/education regarding any changes to your medications before leaving. Stand Alone Forms: Anesthesia Discharge Inst., Nils Damon (DSU) Activity:: Activity as Tolerated Diet:: As Tolerated Discharge Orders Discharge Orders: Discharge Order (Routine); Ordered 04/08/24 Ordered By: Joe Vera DS: Diagnosis Discharge Diagnosis (1) Positive colorectal cancer screening using Cologuard test: Status: Acute Asessment and Plan: Follow-up on polypectomy results
--- NOTE | 2024-04-08 20:39 | COLE_ITS ---
Date of service: 04/09/24 Time of Service: 13:25 Colonoscopy Report Date of procedure: 04/09/24 Pre-op diagnosis general: screening colonoscopy Post-op diagnosis procedure note: other (Colon polyps) Procedure: colonoscopy with polypectomy Surgeon: Joe Vera Anesthesia Type: General:No Airway Estimated blood loss (mL): 10 Pathology: other (Ascending colon polyps x 2, one is 0.5 cm, the other 0.75 cm. 0.5 cm polyp at 95 cm, 0.5 cm polyp at 80 cm, 0.5 cm polyp at 65 cm) Complications: None Disposition: same day Indications: Elisa is a 63 year old woman with a history of adenomatous polyps who needs her next screening colonoscopy Prep: Miralax/Dulcolax Procedure Start Time: 12:28 Procedure End Time: 13:06 Retraction Time: 31 Findings: Ascending colon polyps x 2, one is 0.5 cm, the other 0.75 cm. 0.5 cm polyp at 95 cm, 0.5 cm polyp at 80 cm, 0.5 cm polyp at 65 cm Procedure Description: After the induction of anesthesia, and with the patient in left lateral decubitus position, I began by performing an external anorectal exam.? Perineum and skin were normal, as was the anal verge.? There was no evidence of external hemorrhoids.? Next, I performed a digital rectal exam.? I did not appreciate any abnormal findings.? Next, I advanced a colonoscope into the rectal vault.? I performed retroflexion.? This was normal.? Using insufflation, I then advanced the colonoscope beyond the rectal folds and into the sigmoid colon before advancing towards the cecum.? Around 65 cm from the anal verge was a 0.5 cm pedunculated polyp. This was removed with cold snare polypectomy. Specimen was retrieved.? The scope was noted to be in the cecum by identification of the ileocecal valve and appendiceal orifice.? I then began withdrawing the colonoscope using repeated irrigation as necessary for full evaluation of the colonic mucosa. Within the ascending colon, were 2 areas of polyp. There were almost across from 1 another. The larger of the 2 was about 0.75 cm, and mostly flat. This was retrieved in piecemeal using cold snare polypectomy. The other was about 0.5 cm, and also flat. This was removed using combination of cold snare, as well as cold forcep polypectomy. There was minimal bleeding from the polypectomy sites. I found another flat 0.5 cm polyp at 95 cm from the anal verge. This was removed with cold forceps. Also found another 0.5 cm flat polyp at 80 cm, which was removed with cold snare once the scope was withdrawn to the level of the rectum, great care was taken to examine portions of the rectal folds.? Finally, the scope was withdrawn and the patient was brought to the same-day surgery recovery unit as the anesthetic wore off. ?The findings and instructions were shared with the patient prior to discharge. [place] Bowel Prep [place] Bowel Prep Right Colon: 3 Left Colon: 3 Transverse Colon: 3 Total Score: 9
[2024-04-09 11:08] VITALS: BP 128/74; PULSE 57; RESP 16; TEMP 36.2; O2SAT 99
[2024-04-09] MEDS: Lactated Ringers 1,000 ML 80 ML IV (11:12)
--- NOTE | 2024-04-09 11:16 | W.ANESPRE ---
General Info Date of Service Date Performed: 04/09/24 Height: 5 ft 3 in Weight: 96.1 kg Body Mass Index (BMI): 37.5 Surgical Procedure: Operation Date: 04/09/24 12:20 Proposed Procedure Side Surgeon johanna Vera MD Meds Allergies and Home Medications Allergies Allergy/AdvReac Type Severity Reaction Status Date / Time ampicillin Allergy Intermediate HIVES HEAD Verified 04/09/24 10:43 TO TOE, ITCHING cariprazine [From Vraylar] AdvReac Severe Other (See Verified 04/09/24 10:43 Comment) fluoxetine [From Prozac] AdvReac Severe Other (See Verified 04/09/24 10:43 Comment) olanzapine AdvReac Severe Other (See Verified 04/09/24 10:43 Comment) aripiprazole [From Abilify] AdvReac Intermediate made worse Verified 04/09/24 10:43 bupropion HCl AdvReac Intermediate paranoia Verified 04/09/24 10:43 [From Wellbutrin] fluoxetine HCl [From Prozac] AdvReac Intermediate increased Verified 04/09/24 10:43 mood cycling mirtazapine AdvReac Mild Other (See Verified 04/09/24 10:43 Comment) Home Medication Medication Instructions Recorded acetaminophen 325 mg tablet 650 mg (2 x 325 mg) PO Q4H PRN PRN 09/24/20 (Tylenol) #0 tabs cholecalciferol (vitamin D3) 75 25 mcg PO DAILY 04/11/21 mcg (3,000 unit) tablet aspirin 81 mg tablet,delayed 81 mg PO DAILY 11/26/23 release (Adult Aspirin Regimen) levothyroxine 25 mcg tablet 50 mcg PO DAILY 11/26/23 lumateperone 42 mg capsule 42 mg PO DAILY 11/26/23 (Caplyta) chlorthalidone 25 mg tablet 25 mg PO DAILY 01/05/24 clonidine HCl 0.1 mg tablet 0.1 mg PO BID 01/05/24 omeprazole 40 mg capsule,delayed 40 mg PO DAILY 01/05/24 release levomefolate calcium 15 mg tablet 15 mg PO DAILY 01/13/24 (L-Methylfolate) lithium carbonate 450 mg 450 mg PO DAILY 01/13/24 tablet,extended release losartan 100 mg tablet 100 mg PO DAILY 01/13/24 nitroglycerin 0.4 mg sublingual 0.4 mg sublingual Q5M PRN 01/13/24 tablet rosuvastatin 5 mg tablet 5 mg PO DAILY 01/13/24 lamotrigine 200 mg tablet 200 mg PO DAILY 03/25/24 lisdexamfetamine 30 mg capsule 30 mg PO DAILY 03/25/24 (Vyvanse) Current Visit Medications: Current Medications Generic Name Dose Route Start Last Admin Trade Name Freq PRN Reason Stop Dose Admin Hyoscyamine Sulfate 0.125 mg 04/08/24 20:41 Hyoscyamine 0.125 Mg Sl/Oral/Chew SL 05/08/24 20:40 DIRECTED PRN Ringer's Solution 1,000 mls @ 80 mls/hr 04/09/24 06:00 04/09/24 11:12 IV 04/09/24 23:59 80 mls/hr INFUSION BERNIE Administration IV Miscellaneous Supplies 1 each 04/09/24 06:00 Iv Access IV 04/09/24 23:59 DIRECTED BERNIE Ondansetron HCl 4 mg 04/08/24 20:41 Ondansetron 4 Mg/2 Ml Vial IVP 05/08/24 20:40 Q4H PRN PRN Nausea / Vomiting Sodium Chloride 0 ml 04/09/24 06:00 Normal Saline Flush 10 Ml Syr IV 04/09/24 23:59 PRN PRN Sodium Chloride 0 ml 04/09/24 06:00 Normal Saline 10 Ml Vial IJ 04/09/24 23:59 DIRECTED PRN Sterile Water 0 ml 04/09/24 06:00 Water,Injection,Sterile 10 Ml Vial IJ 04/09/24 23:59 DIRECTED PRN PFSH Active Problems Active Problems: Problem Status Onset Code Positive colorectal cancer screening using Cologuard test ~09/19/[address] R93.89 COVID-19 long hauler B94.8 [id number] kidney injury N17.9, N18.9 Bradycardia R00.1 Chest pain R07.9 COVID-19 U07.1 Colorectal polyps K63.5 S/P colonoscopy Z98.890 Chronic headaches R51 PTSD (post-traumatic stress disorder) F43.10 Abdominal pain R10.9 Elevated serum creatinine R79.89 Unintentional weight loss R63.4 Fatigue R53.83 Medical History Medical History Heart murmur Disorder of adrenal gland History of depression Obesity Bipolar 2 disorder ADD (attention deficit disorder) Allergic rhinitis Sinusitis Abdominal pain in female Creatinine elevation Shoulder pain Medication monitoring encounter Bursitis of elbow Toe pain Skin mole Cough COVID-19 virus infection Confusion Elevated blood pressure reading without diagnosis of hypertension Knee pain, left Anserine bursitis Trochanteric bursitis Dyspnea on exertion Sleep disturbances Transient global amnesia Pt. states it was r/t COVID Loss of balance Tremor Memory impairment pt. sates hx of ST memory loss Hypothyroidism Urinary disorder Cataract Tubular adenoma of colon Obsessive-compulsive disorder Hyperlipidemia Headache Bipolar disorder Benign hypertension ADD Medical History Comments:: Pt. states she get massive, massive headaches Surgical History Surgical History H/O bariatric surgery History of cataract surgery Tobacco Smoking/Tobacco Use Status: Never Alcohol Alcohol Intake: former Substance Use Substance use: Never Substance use type: does not use Vital Signs and Lab Results Vital Signs Most Recent Vital Signs in EMR: Most Recent Vital Signs Temp Pulse Resp BP Pulse Ox 36.2 C L 57 L 16 128/74 99 04/09/24 11:08 04/09/24 11:08 04/09/24 11:08 04/09/24 11:08 04/09/24 11:08 Lab Results Blood Type / Crossmatch: No Data to Display Complete Blood Count: No Data to Display Complete Metabolic Panel: No Data to Display Liver Function Panel: No Data to Display Coagulation Panel: No Data to Display Cardiac Panel: No Data to Display Arterial Blood Gas: No Data to Display Venous Blood Gas: No Data to Display Pancreas Panel: No Data to Display Thyroid Panel: No Data to Display Infectious Disease: No Data to Display Blood Cultures: No Data to Display Toxicology Panel: No Data to Display Imaging and Studies Imaging and Studies Study information below may be from another EMR and interpreted by another provider. Please see original notes in EMR for more complete details. EKG Summary: Conclusion Sinus bradycardia...rate< 60 Probable left ventricular hypertrophy...(RaVL+SV3)xQRSd >300 Abnormal T, consider ischemia, anterior leads...T <-0.20mV, V2-V4 Physician: No stemi, diffuse t wave inversions but this appears to be relatively unchanged from prior ekg on 09/23/20 09/10/23 Stress Test Summary: MPI Conclusion Normal myocardial perfusion, no ischemia or infarct Normal LV function, no wall motion abnormality, EF 66%. 10/14/23 Echocardiogram Summary: Conclusion Normal left ventricular wall thickness and chamber size. EF is 60-65%. Wall motion is normal Normal right ventricular size and function Both atria are normal in size Trileaflet aortic valve with mild regurgitation Normal mitral valve with trace to mild regurgitation 01/14/24 Pulmonary Function Summary: Pulmonary Function Test Result Interpretation Spirometry: There is no airflow obstruction. There is no bronchodilator response. The FVC is low. The MIP and MEP are low. Lung Volumes: Lung volumes are normal Diffusion Capacity: Diffusion is normal Airway Pressure: Airway resistance is normal Note: The low FVC may be due to pseudo-restriction from obesity, muscle weakness or inadequate effort. With the decreased MIP and MEP, muscle weakness maybe present versus inadequate effort. Clinical Correlation therefore is recommended. 03/20/21 Anesthesia Assessment and Plan Anesthesia History Personal History: Other (difficulty waking with longer surgeries) Family History: No Family History of Anesthesia Complications Exercise Tolerance Exercise Tolerance: Metabolic Equivalents>4 Pertinent Negatives Pertinent Negatives: No Symptoms of GERD, No Major Cardiovascular Symptoms or Complaints (chest discomfort secondary to anxiety, cardiac workup negative), No Major Pulmonary Symptoms or Complaints and No History of CVA/TIA Cardiac & Pulmonary Exam Cardiac Exam: Normal S1/S2 Heart Sounds and Heart Murmur Present (slight) Pulmonary Exam: Clear Bilateral Breath Sounds Implantable Cardiac Device Does patient have a Pacemaker or an ICD?: No Airway Exam Known Difficult Airway: No Mallampati Class: 2 Mouth Opening: Normal (> 3cm) Thyromental Distance: Greater than 3 cm Neck Range of Motion: Full ROM Neck Circumference: Normal Teeth Condition: Normal Dentition ASA Classification ASA Score: ASA 2 Emergency Case?: No NPO Status NPO Status: NPO Clears >2 hours, Solids >8 hours Anesthesia Plan Resuscitation Status: Full Code Anesthesia Technique: General Anesthesia Airway Planned: Natural Airway Monitors Used: Standard Monitors Preoperative Comments:: Hx of colon polyps 5 yrs ago, positive Cologuard
[2024-04-09 11:47] VITALS: BMI 37.5
--- NOTE | 2024-04-09 12:31 | BOWEL_PTH ---
PATIENT: Elisa Ram LOC: [facility] U#:[id number] AGE/SX: 63/F ROOM: RE04/09/[address]: Joe Vera MD : [id number] BED: DIS: 04/09/2024 SPEC #: [id number] RECD: 04/09/24 16:29 STATUS: HOMER REQ #: [id number] NATALIE: 04/09/24 12:[address]: Joe Vera DEPT: Surgical Specimen RECD BY: Vinita Kim ENTERED: 04/09/24 16:30 SP TYPE: Bowel OTHR DR: Lisa Munoz V Tissues: 1 - BIOPSY BOWEL 2 - BIOPSY BOWEL 3 - BIOPSY BOWEL 4 - BIOPSY BOWEL Procedures: GROSS AND MICRO LEVEL 4 Comments: [id number]
[2024-04-09 13:13] VITALS: BP 115/95; PULSE 56; RESP 16; TEMP 36.5; O2SAT 100
[2024-04-09 13:40] VITALS: BP 135/75; PULSE 53; RESP 16; TEMP 36.6; O2SAT 95
--- NOTE | 2024-04-09 14:23 | W.ANESPOSTOP ---
Postoperative Evaluation Date, Time and Location Date Performed: 04/09/24 Time Performed: 13:43 Patient Location: Day Surgery Unit Vital Signs Most Recent Imported Vital Signs: Most Recent Vital Signs Temp Pulse Resp BP Pulse Ox 36.6 C 53 L 16 135/75 95 04/09/24 13:40 04/09/24 13:40 04/09/24 13:40 04/09/24 13:40 04/09/24 13:40 Pain Score Most Recent Pain Score: Most Recent Pain Score Pain Level 0 04/09/24 13:40 Assessment Mental Status: Awake (Alert & Oriented to Patient Baseline) Airway and Respiratory Function: Patent airway with normal (patient baseline) respiratory exam Cardiovascular Function: Hemodynamically Stable Hydration Status: Adequately Hydrated Nausea & Vomiting: No Nausea or Vomiting Pain: Pt. Denies Any Pain Peripheral Nerve Block: Patient did not receive a nerve block
== END 2024-04-09 14:00 | disposition home or self-care (01) ==
LOC: SUR 10:28
PROVIDERS: PCP Family Medicine; Visit Provider Surgery
PROC: 0DJD8ZZ Inspection of Lower Intestinal Tract, Via Natural or Artificial Opening Endoscopic (ICD-10-PCS; CPT 45378; principal; 2024-04-09 12:15)
DX: R19.5 Other fecal abnormalities (principal); Z12.11 Encounter for screening for malignant neoplasm of colon; D12.2 Benign neoplasm of ascending colon; K64.8 Other hemorrhoids; D12.4 Benign neoplasm of descending colon; D12.3 Benign neoplasm of transverse colon
CPT/HCPCS: 45385; 45380; 88305; J2001; J2704

== ENCOUNTER 2024-04-26 04:03 | Outpatient (CLI) | payer OTHER, SELFPAY ==
[2024-04-26] MEDS: Albuterol HFA 18 GM 200 PUFF INH IH (17:15)
[2024-04-26] MEDS: Inhaler, Assist Device 1 EACH MC (17:15)
[2024-04-26] MEDS: Methacholine 100 MG VIAL IH (17:16)
--- NOTE | 2024-05-03 11:52 | W.PFT ---
Date of service: 04/26/24 Time of Service: 15:03 Pulmonary Function Test Result Requesting Provider Lisa Munoz Indications: MARRERO Interpretation Spirometry: Normal Lung Volumes: Normal Diffusion Capacity: Normal Impression Pulmonary function test Normal FEV1/FVC at 86%. Normal FEV1 and normal FVC. Normal lung volumes with no air trapping. Normal diffusion. Normal flow volume loop. Methacholine challenge Baseline FEV1 of 2.32 L. Patient received incremental doses of methacholine and demonstrated over 20% decrease of FEV1 after 4 mg/ml, with prompt improvement after albuterol. Impression Positive methacholine challenge. Clinical Correlation therefore is recommended.
== END 2024-04-26 04:04 | disposition home or self-care (01) ==
LOC: RT 04:03
PROVIDERS: PCP Family Medicine; Visit Provider Family Medicine
DX: R06.09 Other forms of dyspnea (principal)
CPT/HCPCS: 00123; 94060; 94070; 94726; 94729; 94010; J7674

== ENCOUNTER 2024-08-03 16:03 | Outpatient (REF) | payer OTHER, SELFPAY ==
[2024-08-03 20:39] LABS: Lithium 0.6 mmol/L (0.6-1.2)
[2024-08-03 20:56] LABS: ALT 15 U/L (14-59); AST 19 U/L (15-37); Alkaline Phosphatase 65 U/L (46-116); Anion Gap 8.8 mmol/L (3-11); BUN 26 mg/dL (7-18); Bilirubin, Total 0.36 mg/dL (0.2-1.0); CO2 29.2 mmol/L (21.0-32.0); CREATININE 1.4 mg/dL (0.55-1.02); Calcium 9.6 mg/dL (8.5-10.1); Chloride 106 mmol/L (98-107); Estimated GFR 42.54 (mL/min/1.73m2); Glucose 109 mg/dL (74-106); Potassium 3.7 mmol/L (3.5-5.1); Sodium 144 mmol/L (136-145); TSH (W/Ref FT4) 2.06 uIU/mL (0.36-3.74); Total Protein 7.3 g/dL (6.4-8.2)
== END 2024-08-03 16:04 | disposition home or self-care (01) ==
LOC: LBN 16:03
PROVIDERS: PCP Family Medicine; Visit Provider Nurse Practitioner Family
DX: Z51.81 Encounter for therapeutic drug level monitoring (principal)
CPT/HCPCS: 80053; 80178; 84443

== ENCOUNTER 2024-09-04 15:27 | Emergency (ER) | payer OTHER, SELFPAY ==
[2024-09-04 15:34] VITALS: BP 124/82; PULSE 54; RESP 16; TEMP 36.6; O2SAT 98
--- NOTE | 2024-09-04 15:45 | DI.RAD_ITS ---
Exam(s) XR FOOT LT COMPLETE EXAM: XR FOOT LT COMPLETE CLINICAL HISTORY: foot pain. TECHNIQUE: 2D digital imaging was performed. COMPARISON: No exams were available for comparison FINDINGS: 3 views No evidence of acute fracture or diastasis of the Lisfranc joint. There is hallux valgus noted. No obvious degenerative changes in the great toe metatarsophalangeal joint. There is, however, signific ant degenerative change in the 2nd and 3rd tarsometatarsal joints between the bases of the 2nd and 3r d meta tarsals and the middle and lateral cuneiform bones, respectively. No osseous lesions nor erosions. Moderate size inferior calcaneal spur measuring 4 mm noted. IMPRESSION: No acute fractures. Hallux valgus. Degenerative changes are noted in the 2nd and 3rd tarsal metatar lopez joints. No fractures evident at these levels. DATA REPOSITORY: RADIATION DOSE DELIVERED:
[2024-09-04 16:42] VITALS: BP 133/76; PULSE 55; RESP 18; O2SAT 95
--- NOTE | 2024-09-04 18:40 | ED.GENADUL_ITS ---
Discharge Plan Disposition Patient Disposition: Home Discharge Details Clinical Impression: Acute pain of left foot Primary Care Provider: Lisa Munoz V ED Provider: Jose Woods Home Meds and New Rx's Prescriptions: No Action cholecalciferol (vitamin D3) 75 mcg (3,000 unit) tablet 25 mcg PO DAILY aspirin [Adult Aspirin Regimen] 81 mg tablet,delayed release (DR/EC) 81 mg PO DAILY levothyroxine 25 mcg tablet 50 mcg PO DAILY Patient Comments: TK 1 T PO D AN HOUR BEFORE OR AFTER YOU HAVE TAKEN YOUR OTHER MEDICATIONS TAKE FOR HYPOTHYROIDISM clonidine HCl 0.1 mg tablet 0.1 mg PO BID Rx Instructions: take 1 tablet twice a day by oral route for 28 days chlorthalidone 25 mg tablet 25 mg PO DAILY levomefolate calcium [L-Methylfolate] 15 mg tablet 15 mg PO DAILY lithium carbonate 450 mg tablet extended release 450 mg PO DAILY losartan 100 mg tablet 100 mg PO DAILY nitroglycerin 0.4 mg tablet, sublingual 0.4 mg sublingual Q5M PRN Rx Instructions: do not exceed 3 doses per episode rosuvastatin 5 mg tablet 5 mg PO DAILY lamotrigine 200 mg tablet 200 mg PO DAILY Rexulti 2 mg tablet 2 mg PO DAILY Rx Instructions: administer on days 5 through 7 for starting therapy acetaminophen [Tylenol] 325 mg Tablet 650 mg PO Q4H PRN PRNQty: 0 0RF Discharge Instructions Additional Instructions: wear boot for comfort you have been referred to podiatry for follow up continue tylenol for pain Discharge Data Discharge Date/Time-TO BE ENTERED AT DEPARTURE: 09/04/24 16:44 HPI General Date/Time Provider Initiated Documentation: 09/04/24 15:41 . Limitations to Documentation: no limitations . Information obtained by: patient . HPI Narrative: 63-year-old female with past medical history of bipolar disorder presents for evaluation of left foot pain. She reports that years ago she had a broken foot that she did not get 6 though it was recommended that she have surgery. She states that a couple of months ago she dropped something on her foot and since that time she has been having chronic pain located in her foot. She takes Tylenol without significant relief. Pain worse with walking or standing for prolonged.. Pain is located along the top of her foot, no pain in her ankle heel or on the plantar surface of her foot. Related Data Home Medications ?Medication ?Instructions ?Recorded ?Confirmed acetaminophen 325 mg tablet 650 mg (2 x 325 mg) PO Q4H PRN PRN 09/24/20 09/04/24 (Tylenol) #0 tabs cholecalciferol (vitamin D3) 75 25 mcg PO DAILY 04/11/21 09/04/24 mcg (3,000 unit) tablet aspirin 81 mg tablet,delayed 81 mg PO DAILY 11/26/23 09/04/24 release (Adult Aspirin Regimen) levothyroxine 25 mcg tablet 50 mcg PO DAILY 11/26/23 09/04/24 chlorthalidone 25 mg tablet 25 mg PO DAILY 01/05/24 09/04/24 clonidine HCl 0.1 mg tablet 0.1 mg PO BID 01/05/24 09/04/24 levomefolate calcium 15 mg tablet 15 mg PO DAILY 01/13/24 09/04/24 (L-Methylfolate) lithium carbonate 450 mg 450 mg PO DAILY 01/13/24 09/04/24 tablet,extended release losartan 100 mg tablet 100 mg PO DAILY 01/13/24 09/04/24 nitroglycerin 0.4 mg sublingual 0.4 mg sublingual Q5M PRN 01/13/24 09/04/24 tablet rosuvastatin 5 mg tablet 5 mg PO DAILY 01/13/24 09/04/24 lamotrigine 200 mg tablet 200 mg PO DAILY 03/25/24 09/04/24 brexpiprazole 2 mg tablet (Rexulti) 2 mg PO DAILY 09/04/24 09/04/24 Previous Rx's ?Medication ?Instructions ?Recorded acetaminophen 325 mg tablet 650 mg (2 x 325 mg) PO Q4H PRN PRN 09/24/20 (Tylenol) #0 tabs Allergies Allergy/AdvReac Type Severity Reaction Status Date / Time ampicillin Allergy Intermediate HIVES HEAD Verified 09/04/24 15:40 TO TOE, ITCHING cariprazine (From Vraylar) AdvReac Severe Other (See Verified 09/04/24 15:40 Comment) fluoxetine (From Prozac) AdvReac Severe Other (See Verified 09/04/24 15:40 Comment) olanzapine AdvReac Severe Other (See Verified 09/04/24 15:40 Comment) aripiprazole (From Abili) AdvReac Intermediate made worse Verified 09/04/24 15:40 bupropion HCl (From AdvReac Intermediate paranoia Verified 09/04/24 15:40 Wellbutrin) fluoxetine HCl (From Prozac) AdvReac Intermediate increased Verified 09/04/24 15:40 mood cycling mirtazapine AdvReac Mild Other (See Verified 09/04/24 15:40 Comment) General Stated Complaint: Orthopedic HA: 3 Exam Narrative Exam Narrative: Review of Systems: All systems reviewed & are unremarkable except as noted in HPI and below Well-developed, no acute distress Unlabored respiratory effort left foot without obvious deformity, skin changes or tenderness Course Vital Signs Vital signs: Vital Signs Temperature 36.6 C 09/04/24 15:34 Pulse 54 L 09/04/24 15:34 Respiratory Rate 16 09/04/24 15:34 Blood Pressure 124/82 09/04/24 15:34 Pulse Oximetry 98 09/04/24 15:34 Temperature 36.6 C 09/04/24 15:34 Temperature Source Oral 09/04/24 15:34 Pulse 55 L 09/04/24 16:42 Respiratory Rate 18 09/04/24 16:42 Respiratory Effort Normal, Non-Labored 09/04/24 15:47 Blood Pressure 133/76 09/04/24 16:42 Blood Pressure Position Sitting 09/04/24 15:34 Pulse Oximetry 95 09/04/24 16:42 Oxygen Delivery Method Room Air 09/04/24 15:34 Oxygen Flow Rate 0 09/04/24 15:34 Pain Level 6 09/04/24 15:34 Medical Decision Making Evaluation of left foot pain. Initial differential includes arthritis, plantar fasciitis, less likely fracture given the time course. X-ray was obtained and radiology report was reviewed. The foot does not have any acute bony process. Patient was provided a walking boot per her request for comfort. She was referred to podiatry to follow-up for this ongoing foot pain. Recommend continued Tylenol and rest as needed. Quality:SDOH Health Related Social Needs: No Data to Display PFSH All Active Problems Acute pain of left foot (Acute) Positive colorectal cancer screening using Cologuard test (Acute ~09/19/23) Abnormal chest CT (Acute) COVID-19 long hauler (Acute) [id number] kidney injury (Acute) Bradycardia (Acute) Chest pain (Acute) COVID-19 (Acute) Colorectal polyps (Acute) S/P colonoscopy (Acute) 2016- Polyps Chronic headaches (Acute) PTSD (post-traumatic stress disorder) (Acute) Abdominal pain (Acute) Elevated serum creatinine (Acute) Unintentional weight loss (Acute) Fatigue (Acute) Medical History Heart murmur Disorder of adrenal gland History of depression Obesity Bipolar 2 disorder ADD (attention deficit disorder) Allergic rhinitis Sinusitis Abdominal pain in female Creatinine elevation Shoulder pain Medication monitoring encounter Bursitis of elbow Toe pain Skin mole Cough COVID-19 virus infection Confusion Elevated blood pressure reading without diagnosis of hypertension Knee pain, left Anserine bursitis Trochanteric bursitis Dyspnea on exertion Sleep disturbances Transient global amnesia Pt. states it was r/t COVID Loss of balance Tremor Memory impairment pt. sates hx of ST memory loss Hypothyroidism Urinary disorder Cataract Tubular adenoma of colon Obsessive-compulsive disorder Hyperlipidemia Headache Bipolar disorder Benign hypertension ADD Surgical History History of colonoscopy (~03/2024) H/O bariatric surgery History of cataract surgery Family History Mother Heart disease Hyperlipidemia Mental disorder Father Hyperlipidemia Mental disorder Grandmother Personal history of malignant neoplasm Mental disorder aunt Personal history of malignant neoplasm Social History Smoking/Tobacco Use Status: Never Smoking risk assessment performed?: Yes Alcohol Intake: former Drug use: Never Substance use type: does not use Housing: house Current gender identity: female Do you feel safe at home: Yes Do you feel safe in your relationship?: Yes
== END 2024-09-04 16:44 | disposition home or self-care (01) ==
PROVIDERS: Emergency Provider Emergency Medicine; PCP Family Medicine
DX: M79.672 Pain in left foot (principal); M20.12 Hallux valgus (acquired), left foot; I10 Essential (primary) hypertension; Z79.82 Long term (current) use of aspirin
CPT/HCPCS: 99283; 73630

== ENCOUNTER 2024-09-14 14:30 | Outpatient (REF) | payer OTHER, SELFPAY ==
[2024-09-14 16:18] LABS: Lithium 0.8 mmol/L (0.6-1.2)
[2024-09-14 16:20] LABS: ALT 27 U/L (14-59); AST 18 U/L (15-37); Albumin 4.1 g/dL (3.4-5.0); Alkaline Phosphatase 61 U/L (46-116); Anion Gap 9.7 mmol/L (3-11); BUN 27 mg/dL (7-18); Bilirubin, Total 0.48 mg/dL (0.2-1.0); CO2 27.3 mmol/L (21.0-32.0); CREATININE 1.3 mg/dL (0.55-1.02); Calcium 9.5 mg/dL (8.5-10.1); Chloride 106 mmol/L (98-107); Estimated GFR 46.49 (mL/min/1.73m2); Glucose 109 mg/dL (74-106); Potassium 3.9 mmol/L (3.5-5.1); Sodium 143 mmol/L (136-145); TSH (W/Ref FT4) 0.65 uIU/mL (0.36-3.74); Total Protein 7.3 g/dL (6.4-8.2)
== END 2024-09-14 14:31 | disposition home or self-care (01) ==
LOC: LBN 14:30
PROVIDERS: PCP Family Medicine; Visit Provider Nurse Practitioner Family
DX: F31.81 Bipolar II disorder (principal); R45.86 Emotional lability; Z51.81 Encounter for therapeutic drug level monitoring
CPT/HCPCS: 80053; 80178; 84443

== ENCOUNTER 2024-11-16 17:30 | Outpatient (REF) | payer OTHER, SELFPAY ==
--- NOTE | 2024-11-16 14:45 | PAPFT_PTH ---
PATIENT: Elisa Ram LOC: [facility]#:[id number] AGE/SX: 64/F ROOM: RE11/16/[address]: Lisa Munoz V : 1960 BED: DIS: 11/16/2024 SPEC #: [id number] RECD: 11/16/24 18:35 STATUS: HOMER REQ #: [id number] NATALIE: 11/16/24 14:[address]: Lisa Munoz V DEPT: [facility] Cytology RECD BY: Vinita Kim Tissues: 1 - CX/ENDOCX FOR PAP SMEARS Procedures: PAP THIN PREP/UVM Screening HPV DNA PROBE Comments: [id number] (HPV 16 & 18/45)
[2024-11-16 19:00] LABS: HCT 43.1 % (36.0-46.0); HGB 14.3 g/dL (11.2-15.7); MCH 31.9 pg (27.0-33.0); MCHC 33.2 % (32.0-36.0); MCV 96 fL (80-95); MPV 10.3 fL (8.0-11.0); Platelet Count 197 10^3/uL (130-400); RBC 4.48 10^6/uL (3.93-5.22); RDW 11.9 % (11.7-14.6); RDW-SD 41.9 fL; WBC 6.14 10^3/uL (4.4-10.8)
[2024-11-16 19:17] LABS: ALT 31 U/L (14-59); AST 17 U/L (15-37); Albumin 4.1 g/dL (3.4-5.0); Alkaline Phosphatase 73 U/L (46-116); Anion Gap 0.4 mmol/L (3-11); BUN 22 mg/dL (7-18); Bilirubin, Total 0.36 mg/dL (0.2-1.0); CO2 31.6 mmol/L (21.0-32.0); CREATININE 1.5 mg/dL (0.55-1.02); Calcium 9.5 mg/dL (8.5-10.1); Calculated LDL 123 mg/dL (<100); Chloride 100 mmol/L (98-107); Cholesterol 248 mg/dL (<200); Estimated GFR 38.91 (mL/min/1.73m2); Glucose 97 mg/dL (74-106); HDL Cholesterol 93 mg/dL (40-60); Potassium 3.3 mmol/L (3.5-5.1); Sodium 132 mmol/L (136-145); TSH 1.98 uIU/mL (0.36-3.74); Total Protein 7.7 g/dL (6.4-8.2); Triglyceride 164 mg/dL (<150)
[2024-11-16 19:53] LABS: FREE T4 1.06 ng/dL (0.76-1.46)
[2024-11-16 20:11] LABS: Hemoglobin A1C 5.8 % (<5.7)
== END 2024-11-16 17:31 | disposition home or self-care (01) ==
LOC: NCHCN 17:30
PROVIDERS: PCP Family Medicine; Visit Provider Family Medicine
DX: Z11.51 Encounter for screening for human papillomavirus (HPV) (principal); Z01.419 Encounter for gynecological examination (general) (routine) without abnormal findings; E66.9 Obesity, unspecified; Z00.00 Encounter for general adult medical examination without abnormal findings; E03.9 Hypothyroidism, unspecified; E78.5 Hyperlipidemia, unspecified
CPT/HCPCS: 80053; 80061; 85027; 88142; 83036; 84439; 84443; 87624

== ENCOUNTER 2024-12-07 16:54 | Outpatient (REF) | payer OTHER, SELFPAY | END 2024-12-07 16:55 | disposition home or self-care (01) | LOC: NCHCN 16:54 | PROVIDERS: PCP Family Medicine; Visit Provider Family Medicine | DX: N39.0 Urinary tract infection, site not specified (principal); B96.29 Other Escherichia coli [E. coli] as the cause of diseases classified elsewhere | CPT/HCPCS: 87077; 87086; 87186 ==

== ENCOUNTER 2025-01-11 13:42 | Outpatient (REF) | payer OTHER, SELFPAY ==
[2025-01-11 16:35] LABS: Anion Gap 10.5 mmol/L (3-11); BUN 21 mg/dL (7-18); CO2 26.5 mmol/L (21.0-32.0); CREATININE 1.4 mg/dL (0.55-1.02); Calcium 9.5 mg/dL (8.5-10.1); Chloride 105 mmol/L (98-107); Estimated GFR 42.27 (mL/min/1.73m2); Glucose 130 mg/dL (74-106); Potassium 3.6 mmol/L (3.5-5.1); Sodium 142 mmol/L (136-145)
== END 2025-01-11 13:43 | disposition home or self-care (01) ==
LOC: NCHCN 13:42
PROVIDERS: PCP Family Medicine; Visit Provider Family Medicine
DX: R79.89 Other specified abnormal findings of blood chemistry (principal)
CPT/HCPCS: 80048

== ENCOUNTER 2025-04-19 03:11 | Outpatient (CLI) | payer OTHER, SELFPAY ==
[2025-04-19 09:21] LABS: Abs Immature Grans 0.01 10^3/uL (0.0-0.06); HCT 42.3 % (36.0-46.0); HGB 14.7 g/dL (11.2-15.7); Immature Grans % 0.2 %; MCH 32.5 pg (27.0-33.0); MCHC 34.8 % (32.0-36.0); MCV 93 fL (80-95); MPV 9.7 fL (8.0-11.0); Platelet Count 224 10^3/uL (130-400); RBC 4.53 10^6/uL (3.93-5.22); RDW 11.8 % (11.7-14.6); RDW-SD 40.5 fL; WBC 5.56 10^3/uL (4.4-10.8)
[2025-04-19 10:17] LABS: Vitamin D 25 Total 36 ng/mL (30-100)
[2025-04-19 10:19] LABS: ALT 27 U/L (14-59); AST 18 U/L (15-37); Albumin 3.9 g/dL (3.4-5.0); Alkaline Phosphatase 70 U/L (46-116); Anion Gap 7.7 mmol/L (3-11); BUN 20 mg/dL (7-18); Bilirubin, Total 0.5 mg/dL (0.2-1.0); CO2 30.3 mmol/L (21.0-32.0); Calcium 9.6 mg/dL (8.5-10.1); Calculated LDL 87 mg/dL (<100); Chloride 102 mmol/L (98-107); Cholesterol 193 mg/dL (<200); Estimated GFR 42.27 (mL/min/1.73m2); Glucose 105 mg/dL (74-106); HDL Cholesterol 71 mg/dL (>or=50); Potassium 3.9 mmol/L (3.5-5.1); Sodium 140 mmol/L (136-145); Total Protein 7.4 g/dL (6.4-8.2); Triglyceride 179 mg/dL (<150); Vitamin B12 324 pg/mL (193-986)
[2025-04-19 10:25] LABS: Folate > 20.0 ng/mL (8.6-20.0)
[2025-04-19 10:54] LABS: Hemoglobin A1C 5.5 % (<5.7)
[2025-04-25 10:22] LABS: Vitamin E, Serum 12.1 mg/L (5.5 - 17.0)
[2025-04-25 11:11] LABS: Free Retinol (Vitamin A) 101.0 mcg/dL (32.5-78.0)
== END 2025-04-19 03:12 | disposition home or self-care (01) ==
LOC: LBO 03:12
PROVIDERS: PCP Family Medicine; Visit Provider Family Medicine
DX: Z98.84 Bariatric surgery status (principal); E66.9 Obesity, unspecified; E78.5 Hyperlipidemia, unspecified; I10 Essential (primary) hypertension
CPT/HCPCS: 36415; 80053; 80061; 82306; 82607; 82746; 83036; 84446; 84590; 84597; 85025

== ENCOUNTER 2025-04-28 00:48 | Outpatient (CLI) | payer OTHER, SELFPAY ==
--- NOTE | 2025-04-28 | DI.MAMMO_ITS ---
Exam(s) MAMMO SCREENING EXAM: MAMMO SCREENING CLINICAL HISTORY: SCREENING,Z12.31 TECHNIQUE: Bilateral full field digital CC and MLO mammographic images were obtained with 3D tomosynthesis and utilizing computer aided detection (CAD). COMPARISON: Comparison is made with prior examinations. FINDINGS: Masses/Architectural Distortion: No suspicious masses or areas of architectural distortion are present. There are stable fibronodular densities in the breasts. Microcalcifications: No suspicious pleomorphic-type are seen. Skin Thickening/Nipple Retraction: None. IMPRESSION: 1. No significant interval change with no specific features of malignancy noted. 2. Unless there is more urgent need, screening mammography is recommended, as per [place] [employer] guidelines. BI-RADS Category 1 - Negative Breast Density - Category B - There are scattered areas of fibroglandular density. Breast density Category C or D implies that the patient has dense breast tissue. Dense breast tissue can make it harder to find cancer on a mammogram. Dense breast tissue is also associated with an increased risk of breast cancer. This information about the result of the mammogram report was provided to the patient to raise their awareness. Use this report when you speak with the patient about their risks for breast cancer, which includes their family history. At that time, you may recommend additional screening tests (Ultrasound or MRI) as these tests may add significant information. A negative radiographic report should not delay biopsy if a dominant or clinically suspicious mass is present. Up to ten percent of cancers are not identified on mammography. A negative report may reinforce clinical impression. Adenosis and dense breasts may obscure an underlying neoplasm. False positive reports average 6 to 10%. Patient will receive a letter notifying them of these results.
== END 2025-04-28 01:08 ==
LOC: DI 00:49
PROVIDERS: PCP Family Medicine; Visit Provider Family Medicine
DX: Z12.31 Encounter for screening mammogram for malignant neoplasm of breast (principal); R92.323 Mammographic fibroglandular density, bilateral breasts
CPT/HCPCS: 77063; 77067

== ENCOUNTER 2025-05-11 17:16 | Outpatient (REF) | payer OTHER, SELFPAY | END 2025-05-11 17:17 | disposition home or self-care (01) | LOC: NCHCN 17:16 | PROVIDERS: PCP Family Medicine; Visit Provider Family Medicine | DX: N39.0 Urinary tract infection, site not specified (principal) | CPT/HCPCS: 87077; 87086; 87186 ==

== ENCOUNTER 2025-06-02 07:27 | Day surgery (SDC) | payer OTHER, SELFPAY ==
[2025-06-02 08:01] VITALS: BP 166/101; PULSE 74; RESP 16; TEMP 36.4; O2SAT 98
[2025-06-02] MEDS: Lactated Ringers 1,000 ML 80 ML IV (08:22)
--- NOTE | 2025-06-02 08:54 | W.ANESPRE ---
General Info Date of Service Date Performed: 06/02/25 Height: 5 ft 3 in Weight: 89.4 kg Body Mass Index (BMI): 34.9 Surgical Procedure: Operation Date: 06/02/25 09:20 Proposed Procedure Side Surgeon p Colonoscopy Alessia Roberts MD Actual Procedure Side Surgeon p Colonoscopy Not Applicable Alessia Roberts MD Pre-Op Diagnosis Post-Op Diagnosis Screening colonoscopy History of polyps Meds Allergies and Home Medications Allergies Allergy/AdvReac Type Severity Reaction Status Date / Time ampicillin Allergy Intermediate HIVES HEAD Verified 06/02/25 07:58 TO TOE, ITCHING cariprazine (From Vraylar) AdvReac Severe Other (See Verified 06/02/25 07:58 Comment) fluoxetine (From Prozac) AdvReac Severe Other (See Verified 06/02/25 07:58 Comment) olanzapine AdvReac Severe Other (See Verified 06/02/25 07:58 Comment) aripiprazole (From Abilify) AdvReac Intermediate made worse Verified 06/02/25 07:58 bupropion HCl (From AdvReac Intermediate paranoia Verified 06/02/25 07:58 Wellbutrin) fluoxetine HCl (From Prozac) AdvReac Intermediate increased Verified 06/02/25 07:58 mood cycling mirtazapine AdvReac Mild Other (See Verified 06/02/25 07:58 Comment) Home Medication ?Medication ?Instructions ?Recorded acetaminophen 325 mg tablet 650 mg (2 x 325 mg) PO Q4H PRN PRN 09/24/20 (Tylenol) #0 tabs cholecalciferol (vitamin D3) 75 25 mcg PO DAILY 04/11/21 mcg (3,000 unit) tablet aspirin 81 mg tablet,delayed 81 mg PO DAILY 11/26/23 release (Adult Aspirin Regimen) levothyroxine 25 mcg tablet 50 mcg PO DAILY 11/26/23 chlorthalidone 25 mg tablet 25 mg PO DAILY 01/05/24 clonidine HCl 0.1 mg tablet 0.1 mg PO BID 01/05/24 levomefolate calcium 15 mg tablet 15 mg PO DAILY 01/13/24 (L-Methylfolate) losartan 100 mg tablet 100 mg PO DAILY 01/13/24 nitroglycerin 0.4 mg sublingual 0.4 mg sublingual Q5M PRN 01/13/24 tablet rosuvastatin 5 mg tablet 5 mg PO DAILY 01/13/24 methylphenidate HCl 20 mg tablet 20 mg PO DAILY 05/13/25 pantoprazole 40 mg tablet,delayed 40 mg PO DAILY 05/13/25 release semaglutide (weight loss) 1.7 1.7 mg subcut QWEEK 05/13/25 mg/0.75 mL subcutaneous pen injector (Blas) bisacodyl 5 mg tablet,delayed 5 mg PO ONCE colonscopy bowel prep 05/18/25 release (Dulcolax (bisacodyl)) #4 tabs polyethylene glycol 3350 17 238 g PO ONCE colonoscopy prep 05/18/25 gram/dose oral powder #238 grams ziprasidone HCl 60 mg capsule 60 mg PO BID 05/18/25 (Geodon) Current Visit Medications: Current Medications Generic Name Dose Route Start Last Admin Trade Name Freq PRN Reason Stop Dose Admin Ringer's Solution 1,000 mls @ 80 mls/hr 06/02/25 06:00 06/02/25 08:22 IV 06/02/25 23:59 80 mls/hr INFUSION BERNIE Administration IV Miscellaneous Supplies 1 each 06/02/25 06:00 Iv Access IV 06/02/25 23:59 DIRECTED BERNIE Sodium Biphosphate/Sodium Phosphate 133 ml 06/02/25 06:00 Na Phosphate Enema-Adult 133 Ml Btl TN 06/02/25 23:59 DIRECTED PRN Sodium Chloride 0 ml 06/02/25 06:00 Normal Saline Flush 10 Ml Syr IV 06/02/25 23:59 PRN PRN Sodium Chloride 0 ml 06/02/25 06:00 Normal Saline 10 Ml Vial IJ 06/02/25 23:59 DIRECTED PRN Sterile Water 0 ml 06/02/25 06:00 Water,Injection,Sterile 10 Ml Vial IJ 06/02/25 23:59 DIRECTED PRN PFSH Active Problems Active Problems: Problem Status Onset Code Bunion, left foot Acute M21.612 Pain in left foot Acute M79.672 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 Acute M19.172 Positive colorectal cancer screening using Cologuard test Acute ~09/19/[address] Acute R93.89 COVID-19 long hauler Acute B94.8 [id number]-yrztxbn kidney injury Acute N17.9, N18.9 Bradycardia Acute R00.1 Chest pain Acute R07.9 COVID-19 Acute U07.1 Colorectal polyps Acute K63.5 S/P colonoscopy Acute Z98.890 Chronic headaches Acute R51 PTSD (post-traumatic stress disorder) Acute F43.10 Abdominal pain Acute R10.9 Elevated serum creatinine Acute R79.89 Unintentional weight loss Acute R63.4 Fatigue Acute R53.83 Medical History Medical History Essential hypertension Asthma GERD (gastroesophageal reflux disease) Sleep apnea Heart murmur Disorder of adrenal gland History of depression Obesity Bipolar 2 disorder ADD (attention deficit disorder) Allergic rhinitis Sinusitis Abdominal pain in female Creatinine elevation Shoulder pain Medication monitoring encounter Bursitis of elbow Toe pain Skin mole Cough COVID-19 virus infection Confusion Elevated blood pressure reading without diagnosis of hypertension Knee pain, left Anserine bursitis Trochanteric bursitis Dyspnea on exertion Sleep disturbances Transient global amnesia Pt. states it was r/t COVID Loss of balance Tremor Memory impairment pt. sates hx of ST memory loss Hypothyroidism Urinary disorder Cataract Tubular adenoma of colon Obsessive-compulsive disorder Hyperlipidemia Headache Bipolar disorder Benign hypertension ADD Medical History Comments:: Pt. states she get massive, massive headaches Surgical History Surgical History History of colonoscopy (~03/2024) H/O bariatric surgery History of cataract surgery Tobacco Smoking/Tobacco Use Status: Never Alcohol Alcohol Intake: former Substance Use Substance use: Never Substance use type: does not use Vital Signs and Lab Results Vital Signs Most Recent Vital Signs in EMR: Most Recent Vital Signs Temp Pulse Resp BP Pulse Ox 36.4 C L 74 16 166/101 H 98 06/02/25 08:01 06/02/25 08:01 06/02/25 08:01 06/02/25 08:01 06/02/25 08:01 Imaging and Studies Imaging and Studies Study information below may be from another EMR and interpreted by another provider. Please see original notes in EMR for more complete details. EKG Summary: Conclusion Sinus bradycardia...rate< 60 Probable left ventricular hypertrophy...(RaVL+SV3)xQRSd >300 Abnormal T, consider ischemia, anterior leads...T <-0.20mV, V2-V4 Physician: No stemi, diffuse t wave inversions but this appears to be relatively unchanged from prior ekg on 09/23/20 09/10/23 Stress Test Summary: MPI Conclusion Normal myocardial perfusion, no ischemia or infarct Normal LV function, no wall motion abnormality, EF 66%. 10/14/23 Echocardiogram Summary: Conclusion Normal left ventricular wall thickness and chamber size. EF is 60-65%. Wall motion is normal Normal right ventricular size and function Both atria are normal in size Trileaflet aortic valve with mild regurgitation Normal mitral valve with trace to mild regurgitation 01/14/24 Pulmonary Function Summary: Pulmonary Function Test Result Interpretation Spirometry: There is no airflow obstruction. There is no bronchodilator response. The FVC is low. The MIP and MEP are low. Lung Volumes: Lung volumes are normal Diffusion Capacity: Diffusion is normal Airway Pressure: Airway resistance is normal Note: The low FVC may be due to pseudo-restriction from obesity, muscle weakness or inadequate effort. With the decreased MIP and MEP, muscle weakness maybe present versus inadequate effort. Clinical Correlation therefore is recommended. 03/20/21 Anesthesia Assessment and Plan Anesthesia History Personal History: Other Family History: No Family History of Anesthesia Complications Exercise Tolerance Exercise Tolerance: Metabolic Equivalents>4 Pertinent Negatives Pertinent Negatives: No Symptoms of GERD, No Major Cardiovascular Symptoms or Complaints (chest discomfort secondary to anxiety, cardiac workup negative), No Major Pulmonary Symptoms or Complaints and No History of CVA/TIA Cardiac & Pulmonary Exam Cardiac Exam: Normal S1/S2 Heart Sounds and Heart Murmur Present (slight) Pulmonary Exam: Clear Bilateral Breath Sounds Implantable Cardiac Device Does patient have a Pacemaker or an ICD?: No Airway Exam Known Difficult Airway: No Mallampati Class: 2 Mouth Opening: Normal (> 3cm) Thyromental Distance: Greater than 3 cm Neck Range of Motion: Full ROM Neck Circumference: Normal Teeth Condition: Normal Dentition Airway Comments: Recently mutiple molars removed from upper and lower jaw bilaterally ASA Classification ASA Score: ASA 2 Emergency Case?: No NPO Status NPO Status: NPO Clears >2 hours, Solids >8 hours Anesthesia Plan Resuscitation Status: Full Code Anesthesia Technique: General Anesthesia Airway Planned: Natural Airway Monitors Used: Standard Monitors Preoperative Comments:: History of migraines postop, will order Tylenol/Ibuprofen PRN
[2025-06-02 08:57] VITALS: BMI 34.9
--- NOTE | 2025-06-02 09:05 | W.PM.DSUDISC ---
Date of service: 06/02/25 Discharge Plan Disposition Patient Disposition: Home Condition: Stable Discharge Details Attending Provider: Alessia Roberts Primary Care Provider: Lisa Munoz V Home Meds and New Rx's Prescriptions: Continued cholecalciferol (vitamin D3) 75 mcg (3,000 unit) tablet 25 mcg PO DAILY aspirin [Adult Aspirin Regimen] 81 mg tablet,delayed release (DR/EC) 81 mg PO DAILY levothyroxine 25 mcg tablet 50 mcg PO DAILY Patient Comments: TK 1 T PO D AN HOUR BEFORE OR AFTER YOU HAVE TAKEN YOUR OTHER MEDICATIONS TAKE FOR HYPOTHYROIDISM clonidine HCl 0.1 mg tablet 0.1 mg PO BID Rx Instructions: take 1 tablet twice a day by oral route for 28 days chlorthalidone 25 mg tablet 25 mg PO DAILY levomefolate calcium [L-Methylfolate] 15 mg tablet 15 mg PO DAILY losartan 100 mg tablet 100 mg PO DAILY nitroglycerin 0.4 mg tablet, sublingual 0.4 mg sublingual Q5M PRN Rx Instructions: do not exceed 3 doses per episode rosuvastatin 5 mg tablet 5 mg PO DAILY methylphenidate HCl 20 mg tablet 20 mg PO DAILY pantoprazole 40 mg tablet,delayed release (DR/EC) 40 mg PO DAILY Wegovy 1.7 mg/0.75 mL pen injector 1.7 mg subcut QWEEK Rx Instructions: administer weeks 13 through 16 of therapy ziprasidone HCl [Geodon] 60 mg capsule 60 mg PO BID Patient Comments: then 20mg at 9pm Rx Instructions: give with food (meal/snack) acetaminophen [Tylenol] 325 mg Tablet 650 mg PO Q4H PRN PRNQty: 0 0RF Discontinued bisacodyl [Dulcolax (bisacodyl)] 5 mg tablet,delayed release (DR/EC) 5 mg PO ONCE Qty: 4 0RF Rx Instructions: take per colonoscopy instructions polyethylene glycol 3350 17 gram/dose powder 238 g PO ONCE Qty: 238 0RF Rx Instructions: take per colonoscopy instructions Discharge Instructions Additional Instructions: 5 polyps total seen and removed today. One polyp was quite large and may be the reason you needed a follow up in 3 years after your last scope. Lets meet back in the office in 2-3 weeks to review what kind of polyps your colon is growing, and review our plan for how to keep them gone for longer. I will send all 5 polyps removed today to the lab and will have biopsy results back in 7-10 days. I will notify you by mail and by phone about your polyp biopsy results. Today I used a tattoo to williams the colon where the largest polyp grew. I also used a clip in the colon to help stop the bleeding from polyp removal. The clip will fall off into the stool, you will not see it and do not need to look for it. Do not restart your aspirin until 06/07/25. Stand Alone Forms: Anesthesia Discharge Inst., Colonoscopy Post Instructions, Nils Damon (DSU) Activity:: Activity as Tolerated Diet:: As Tolerated Discharge Orders Discharge Orders: Discharge Order (Routine); Ordered 06/02/25 Ordered By: Alessia Roberts DS: Diagnosis Discharge Diagnosis (1) Encounter for colonoscopy due to history of adenomatous colonic polyps: Status: Acute (2) Polyp of hepatic flexure of colon: Status: Acute (3) Polyp of transverse colon: Status: Acute
--- NOTE | 2025-06-02 09:23 | BOWEL_PTH ---
PATIENT: Elisa Ram LOC: [facility] U#:[id number] AGE/SX: 64/F ROOM: RE06/02/[address]: Alessia Roberts MD : 1960 BED: DIS: 06/02/2025 SPEC #: [id number] RECD: 06/02/25 12:47 STATUS: HOMER REQ #: [id number] NATALIE: 06/02/25 09:[address]: Alessia Roberts DEPT: Surgical Specimen RECD BY: Vinita Kim ENTERED: 06/02/25 12:49 SP TYPE: Bowel OTHR DR: Lisa Munoz V Tissues: 1 - BIOPSY BOWEL 2 - BIOPSY BOWEL Procedures: GROSS AND MICRO LEVEL 4 Comments: [id number]
[2025-06-02] MEDS: Endoscopic Tattoo 5 ML SYR IJ (09:40)
[2025-06-02 09:54] VITALS: BP 135/82; PULSE 64; RESP 20; TEMP 36.2; O2SAT 96
--- NOTE | 2025-06-02 09:59 | W.COLOREPORT ---
Date of service: 06/02/25 Time of Service: 09:59 Colonoscopy Report Pre-op diagnosis general: history of polyps Post-op diagnosis procedure note: same (1. hepatic flexure large polyp. 2. multiple transverse colon polyps) Procedure: colonoscopy with hot snare and cold forceps polypectomy. Tattoo of hepatic flexure. Endoclip of transverse colon polypectomy site. Surgeon: Alessia Roberts Anesthesia Type: General:No Airway Estimated blood loss (mL): 5 Pathology: other (1. hepatic flexure polyp. 2. multiple transverse colon polyps) Complications: None Disposition: same day Procedure Description: Informed consent was obtained and the patient was taken to the procedure area. The patient was placed in left lateral decubitus position on the procedure table. Timeout was performed. Anesthesia was induced. A lubricated colonoscope was inserted through the anus and passed to the cecum. The cecum was identified by the ileocecal valve and the appendiceal orifice. The scope was then slowly withdrawn and the colonic and rectal mucosa examined. TI intubated and examined. It appeared normal. Hepatic flexure with a large sessile polyp. Measures about 2.5cm. Excised piecemeal using hot snare. Retrieval with polyp trap. A portion of the polyp could not me removed. 0.5mL SPOT ink tattoo place and proximal base of lesion. Transverse colon with 4 sessile and flat polyps. One measuring 7mm by 5mm was excised by hot snare and retrieved with polyp trap. Endoclip placed for hemostasis. The other 3 were 3mm to 6mm in size, flat, and excised with cold forceps. No diverticulosis was seen. The scope was retroflexed in the anorectal junction examined. Uncomplicated internal hemorrhoids present. Assessment and plan; Hepatic flexure large polyp/mass - follow up path and consider hemicolectomy vs repeat colonoscopy or EMR for residual polyp based on path. Transverse colon polyps path will also help determine next colonoscopy timing. Office visit scheduled Jun 17, 2025 at 10am.
--- NOTE | 2025-06-02 10:01 | W.ANESPOSTOP ---
Postoperative Evaluation Date, Time and Location Date Performed: 06/02/25 Time Performed: 10:01 Patient Location: Day Surgery Unit Vital Signs Most Recent Imported Vital Signs: Most Recent Vital Signs Temp Pulse Resp BP Pulse Ox 36.2 C L 64 20 135/82 96 06/02/25 09:54 06/02/25 09:54 06/02/25 09:54 06/02/25 09:54 06/02/25 09:54 Pain Score Most Recent Pain Score: Most Recent Pain Score Pain Level 0 06/02/25 09:54 Assessment Mental Status: Awake (Alert & Oriented to Patient Baseline) Airway and Respiratory Function: Patent airway with normal (patient baseline) respiratory exam Cardiovascular Function: Hemodynamically Stable Hydration Status: Adequately Hydrated Nausea & Vomiting: No Nausea or Vomiting Pain: Pt. Denies Any Pain Peripheral Nerve Block: Patient did not receive a nerve block
[2025-06-02 10:22] VITALS: BP 140/81; PULSE 63; RESP 16; TEMP 36.6; O2SAT 97
== END 2025-06-02 10:35 | disposition home or self-care (01) ==
PROVIDERS: PCP Family Medicine; Visit Provider Surgery
PROC: 0DJD8ZZ Inspection of Lower Intestinal Tract, Via Natural or Artificial Opening Endoscopic (ICD-10-PCS; CPT 45378; principal; 2025-06-02 09:15)
DX: Z12.11 Encounter for screening for malignant neoplasm of colon (principal); D37.4 Neoplasm of uncertain behavior of colon
CPT/HCPCS: 45385; 45380; 45381; 88305; J2704

== ENCOUNTER 2025-09-02 13:39 | Outpatient (REF) | payer OTHER, SELFPAY ==
[2025-09-02 15:12] LABS: Abs Immature Grans 0.01 10^3/uL (0.0-0.06); HCT 41.8 % (36.0-46.0); HGB 14.0 g/dL (11.2-15.7); Immature Grans % 0.2 %; MCH 30.5 pg (27.0-33.0); MCHC 33.5 % (32.0-36.0); MCV 91 fL (80-95); MPV 10.4 fL (8.0-11.0); Platelet Count 194 10^3/uL (130-400); RBC 4.59 10^6/uL (3.93-5.22); RDW 11.7 % (11.7-14.6); RDW-SD 39.3 fL; WBC 5.35 10^3/uL (4.4-10.8)
[2025-09-02 15:32] LABS: TSH (W/Ref FT4) 1.01 uIU/mL (0.55-4.78)
[2025-09-02 15:34] LABS: ALT 20 U/L (10-49); AST 20 U/L (<34); Albumin 4.4 g/dL (3.4-5.0); Alkaline Phosphatase 64 U/L (46-116); Anion Gap 6.8 mmol/L (3-11); BUN 26 mg/dL (9-23); Bilirubin, Total 0.40 mg/dL (0.2-1.2); CO2 29.2 mmol/L (20.0-31.0); Calcium 9.6 mg/dL (8.3-10.6); Chloride 104 mmol/L (98-107); Cholesterol 208 mg/dL (<200); Glucose 95 mg/dL (74-106); HDL Cholesterol 83 mg/dL (>40); Potassium 3.6 mmol/L (3.5-5.1); Sodium 140 mmol/L (136-145); Total Protein 6.7 g/dL (5.7-8.2)
[2025-09-02 15:59] LABS: Hemoglobin A1C 5.5 % (<5.7)
== END 2025-09-02 13:40 | disposition home or self-care (01) ==
LOC: NCHCN 13:39
PROVIDERS: PCP Family Medicine; Visit Provider Family Medicine
DX: E78.5 Hyperlipidemia, unspecified (principal); E03.9 Hypothyroidism, unspecified; R73.03 Prediabetes; F31.81 Bipolar II disorder; I10 Essential (primary) hypertension
CPT/HCPCS: 80053; 80061; 83036; 84443; 85025